=== PATIENT | female | born 1975 | race Caucasian/White ===

== ENCOUNTER 2020-01-14 14:15 | Inpatient (IN) | payer SELFPAY ==
[2020-01-14] VITALS (16 sets, daily range): BP systolic 122–220; BP diastolic 75–162; PULSE 64–84; RESP 16–25; TEMP 36.7–37.1; O2SAT 94–99; BMI 25.7
--- NOTE | 2020-01-14 15:12 | W.ED.CHESTPA ---
Documented by User: MERCEDES Bartlett 01/15/20 06:55 HPI - Chest Pain General: Chief Complaint: Recheck/Abnormal Lab/Rx Stated Complaint: med refill Time Seen by Provider: 01/14/20 14:58 Source: patient Mode of arrival: ambulatory Limitations: no limitations History of Present Illness: HPI narrative: Patient is a 44-year-old female who presents to ED today at the request of the [facility]. Patient tells me she went to the clinic for refills of her medications and during that visit she was complaining of chest pain and was noted to be extremely hypertensive therefore they sent patient to the emergency department for further evaluation. Patient tells me she has been having intermittent chest tightness over the past month with worsening symptoms over the past 3 to 4 days. She states pain seems to be worse with exertion as well as lifting. She tells me she will get short of breath with exertion as well. Patient has a history of CHF, HTN, and CKD. Her current medications include Lisinopril and Lasix. Patient states she is never had a heart attack previously. She has never had a stress test or echocardiogram. Patient has not been running fevers. She does not complain of a cough. She complains of worsening orthopnea. 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 MD complaint: chest pain and chest heaviness Timing of current episode: episodic Prior episodes: Yes Onset: during exertion Pain location: substernal Associated symptoms: Reports dyspnea; Deny abdominal pain, fever(s), nausea, palpitations, syncope or vomiting Review of Systems Const: Denies: fever(s), chills, body aches, fatigue or malaise Eyes: Denies: change in vision, blurry vision, photophobia, floaters or seeing flashes Card: Reports: chest pain, swelling of feet/ankles (chronic), dyspnea on exertion and orthopnea (chronic); Denies: palpitations, irregular heart rhythm, edema, lightheadedness, syncope, pre-syncope or leg pain with exertion Resp: Reports: dyspnea; Denies: productive cough, non-productive cough, pain on inspiration, change in phlegm color or chest congestion GI: Denies: abdominal pain, nausea, vomiting, heartburn or diarrhea : Denies: dysuria Musc: Denies: neck pain, back pain or joint pain Skin/Breast: Denies: rash Neuro: Denies: headache(s), numbness in extremities, weakness in extremities, sensory changes, lack of coordination, difficulty walking, frequent falls, dizziness, vertigo, confusion or seizure-like activity [facility] ED PFSH: Medical History Current smoker Surgical History (Updated 01/14/20 @ 17:34 by Andrae Menendez MD) No pertinent past surgical history Family History (Updated 01/14/20 @ 17:35 by Andrae Menendez MD) Mother CAD (coronary artery disease) Grandmother CAD (coronary artery disease) Social History (Updated 01/14/20 @ 17:35 by Andrae Menendez MD) Smoking and tobacco status: current every day smoker Alcohol intake: never Substance/Drug Use: never Female Reproductive History: Date of last menstrual period: 12/31/19 Physical Exam Const: COMMON NORMALS: no acute distress, average body habitus, patient oriented x3, no limitations, healthy appearing, alert and well nourished ORIENTATION/CONSCIOUSNESS: Yes oriented to person, Yes oriented to place and Yes oriented to time HENMT: COMMON NORMALS: normocephalic and atraumatic HEAD & SCALP: normocephalic and atraumatic Eye: COMMON NORMALS: Equal, round and reactive pupils present and EOMs intact bilaterally PUPIL: Yes Equal, round and reactive pupils present Chest: COMMONS NORMALS: normal inspection of the chest and normal palpation of entire chest wall Resp: COMMON NORMALS: normal respiratory effort and clear to auscultation bilaterally AUSCULTATION: clear to auscultation bilaterally Cardio: COMMON NORMALS: regular rate and regular rhythm RATE: regular rate RHYTHM: regular rhythm GI: COMMON NORMALS: Normal to inspection, nondistended, normoactive bowel sounds present, Soft to palpation, non-tender, No hepatosplenomegaly present and no masses PALPATION: Yes Soft to palpation and Yes No hepatosplenomegaly present Extremity: COMMON NORMALS: normal to inspection, full ROM, capillary refill normal, no clubbing, cyanosis or edema, no calf tenderness and no pedal edema GENERAL: Yes normal exam except as noted Neuro: OLIVA COMA SCALE: document GCS findings Oliva coma scale eye opening: Spontaneous [place] coma scale verbal response: Orientated [place] coma scale motor response: Obey commands [place] coma scale total score: 15 COMMON NORMALS: patient oriented x3 SENSORIUM/ORIENTATION: Yes alert, Yes oriented to person, Yes oriented to place and Yes oriented to time Skin: COMMON NORMALS: no rashes or lesions noted GENERAL SKIN EXAM: no rashes or lesions noted Course Vital Signs: Vital signs: Vital Signs Temperature 98.5 F 01/14/20 19:41 Pulse Rate 62 01/15/20 05:30 Respiratory Rate 20 H 01/15/20 05:30 Blood Pressure 125/74 01/15/20 05:30 Pulse Oximetry 95 01/15/20 05:30 MDM - Chest Pain MDM Narrative: Medical decision making narrative: Patient has a BNP of over 3200. She does complain of shortness of breath and orthopnea-worse than her baseline. She is complaining of intermittent chest tightness worse with exertion. She has uncontrolled hypertension. She has no outpatient follow-up. Patient has a HEART score of 4-5. Patient would benefit from coming inpatient. Spoke to Dr. Mcclure who agrees. She will assume care of patient and speak to hospitalist. Lab Data: Labs: Lab Results 01/14/20 01/14/20 01/14/20 Range/Units 02:50 02:50 15:47 WBC 7.7 (4.0-10.0) 10^3/ uL RBC 4.59 (4.1-5.3) 10^6/u L Hgb 13.4 (11.5-15.3) g/dL Hct 42.6 (37.0-47.0) % MCV 92.8 (81-99) fL MCH 29.2 (28.0-34.0) pg MCHC 31.5 (30.0-36.0) g/dL RDW 15.5 H (12.1-15.1) % Plt Count 165 (130-400) 10^3/c mm MPV 12.6 H (7.4-10.4) fL Neut % (Auto) 70.8 % Lymph % (Auto) 20.2 % Boyle % (Auto) 6.9 % Eos % (Auto) 1.3 % Baso % (Auto) 0.5 % Neut # (Auto) 5.47 (1.8-7.7) 10^3/u L Lymph # (Auto) 1.6 (0.8-4.8) 10^3/u L Boyle # (Auto) 0.5 (0.2-0.9) 10^3/u L Eos # (Auto) 0.1 (0.0-0.8) 10^3/u L Baso # (Auto) 0.0 (0.0-0.1) 10^3/u L Nucleated RBC % (a uto) 0 % Nucleated RBCs # 0.0 /100WBC Sodium (136-145) mmol/L Potassium (3.5-5.1) mmol/L Chloride (98-107) mmol/L Carbon Dioxide (22-29) mmol/L Anion Gap (5-19) BUN (6-20) mg/dL Creatinine (0.5-0.9) mg/dL GFR Calculation (90-130) mL/min Glucose (65-115) mg/dL Estimat Average Gl ucose Hemoglobin A1c (4.0-6.0) % Calculated Osmolal ity (285-295) mOsm/k g Calcium (8.5-10.5) mg/dL Total Bilirubin (0.15-1.2) mg/dL AST (0-32) U/L ALT (0-33) U/L Alkaline Phosphata se (35-105) IU/L Troponin T Baselin e (0-10) ng/L NT-Pro-B Natriuret Pep (0-125) pg/mL Total Protein (6.6-8.7) g/dL Albumin (3.5-5.2) g/dL Globulin (1.3-4.6) g/dL TSH (0.27-4.20) uIU/ mL HCG, Qual Negative (Negative) Urine Opiates Scre en Negative (Negative) ng/mL Ur Barbiturates Sc reen Negative (Negative) ng/mL Ur Phencyclidine S crn Negative (Negative) ng/mL Ur Amphetamines Sc reen Negative (Negative) ng/mL U Benzodiazepines Scrn Negative (Negative) ng/mL Urine Cocaine Scre en Negative (Negative) ng/mL U Marijuana (THC) Screen Negative (Negative) ng/mL 01/14/20 01/14/20 01/14/20 Range/Units 15:47 15:47 15:47 WBC (4.0-10.0) 10^3/ uL RBC (4.1-5.3) 10^6/u L Hgb (11.5-15.3) g/dL Hct (37.0-47.0) % MCV (81-99) fL MCH (28.0-34.0) pg MCHC (30.0-36.0) g/dL RDW (12.1-15.1) % Plt Count (130-400) 10^3/c mm MPV (7.4-10.4) fL Neut % (Auto) % Lymph % (Auto) % Boyle % (Auto) % Eos % (Auto) % Baso % (Auto) % Neut # (Auto) (1.8-7.7) 10^3/u L Lymph # (Auto) (0.8-4.8) 10^3/u L Boyle # (Auto) (0.2-0.9) 10^3/u L Eos # (Auto) (0.0-0.8) 10^3/u L Baso # (Auto) (0.0-0.1) 10^3/u L Nucleated RBC % (a uto) % Nucleated RBCs # /100WBC Sodium 139 (136-145) mmol/L Potassium 4.5 (3.5-5.1) mmol/L Chloride 107 (98-107) mmol/L Carbon Dioxide 23 (22-29) mmol/L Anion Gap 13.5 (5-19) BUN 26 H (6-20) mg/dL Creatinine 1.5 H (0.5-0.9) mg/dL GFR Calculation 37.4 L (90-130) mL/min Glucose 118 H (65-115) mg/dL Estimat Average Gl ucose 103 Hemoglobin A1c 5.2 (4.0-6.0) % Calculated Osmolal ity 286 (285-295) mOsm/k g Calcium 9.3 (8.5-10.5) mg/dL Total Bilirubin 0.2 (0.15-1.2) mg/dL AST 15 (0-32) U/L ALT 10 (0-33) U/L Alkaline Phosphata se 78 (35-105) IU/L Troponin T Baselin e 11 H (0-10) ng/L NT-Pro-B Natriuret Pep 3264 H (0-125) pg/mL Total Protein 7.5 (6.6-8.7) g/dL Albumin 4.1 (3.5-5.2) g/dL Globulin 3.4 (1.3-4.6) g/dL TSH (0.27-4.20) uIU/ mL HCG, Qual (Negative) Urine Opiates Scre en (Negative) ng/mL Ur Barbiturates Sc reen (Negative) ng/mL Ur Phencyclidine S crn (Negative) ng/mL Ur Amphetamines Sc reen (Negative) ng/mL U Benzodiazepines Scrn (Negative) ng/mL Urine Cocaine Scre en (Negative) ng/mL U Marijuana (THC) Screen (Negative) ng/mL 01/14/20 Range/Units 15:47 WBC (4.0-10.0) 10^3/ uL RBC (4.1-5.3) 10^6/u L Hgb (11.5-15.3) g/dL Hct (37.0-47.0) % MCV (81-99) fL MCH (28.0-34.0) pg MCHC (30.0-36.0) g/dL RDW (12.1-15.1) % Plt Count (130-400) 10^3/c mm MPV (7.4-10.4) fL Neut % (Auto) % Lymph % (Auto) % Boyle % (Auto) % Eos % (Auto) % Baso % (Auto) % Neut # (Auto) (1.8-7.7) 10^3/u L Lymph # (Auto) (0.8-4.8) 10^3/u L Boyle # (Auto) (0.2-0.9) 10^3/u L Eos # (Auto) (0.0-0.8) 10^3/u L Baso # (Auto) (0.0-0.1) 10^3/u L Nucleated RBC % (a uto) % Nucleated RBCs # /100WBC Sodium (136-145) mmol/L Potassium (3.5-5.1) mmol/L Chloride (98-107) mmol/L Carbon Dioxide (22-29) mmol/L Anion Gap (5-19) BUN (6-20) mg/dL Creatinine (0.5-0.9) mg/dL GFR Calculation (90-130) mL/min Glucose (65-115) mg/dL Estimat Average Gl ucose Hemoglobin A1c (4.0-6.0) % Calculated Osmolal ity (285-295) mOsm/k g Calcium (8.5-10.5) mg/dL Total Bilirubin (0.15-1.2) mg/dL AST (0-32) U/L ALT (0-33) U/L Alkaline Phosphata se (35-105) IU/L Troponin T Baselin e (0-10) ng/L NT-Pro-B Natriuret Pep (0-125) pg/mL Total Protein (6.6-8.7) g/dL Albumin (3.5-5.2) g/dL Globulin (1.3-4.6) g/dL TSH 1.12 (0.27-4.20) uIU/ mL HCG, Qual (Negative) Urine Opiates Scre en (Negative) ng/mL Ur Barbiturates Sc reen (Negative) ng/mL Ur Phencyclidine S crn (Negative) ng/mL Ur Amphetamines Sc reen (Negative) ng/mL U Benzodiazepines Scrn (Negative) ng/mL Urine Cocaine Scre en (Negative) ng/mL U Marijuana (THC) Screen (Negative) ng/mL Imaging Data^: CXR: Radiologist's impression: [address] [address] XRay Report Signed Patient: Imelda Cabezas Unit #: [id number] : 1975 Age/Sex: 44 / F ADM Date: 01/14/20 Loc: ER Room/Bed: Attending Dr: Ordering Provider/Ordering MD: Ana Luisa Woods Date of Service: 01/14/20 Procedure(s): XR chest 1V portable 22435 Accession Number(s): [id number] Report Number: [id number] PROCEDURE INFORMATION: Exam: XR Chest, 1 View Exam date and time: 01/14/2020 3:16 PM Age: 44 years old Clinical indication: Pain; Shortness of breath; Chest pressure; Additional info: Chest pain TECHNIQUE: Imaging protocol: XR of the chest Views: 1 view. COMPARISON: No relevant prior studies available. FINDINGS: Lungs: Unremarkable. No consolidation. Pleural space: Unremarkable. No pleural effusion. No pneumothorax. Heart/Mediastinum: Unremarkable. No cardiomegaly. Bones/joints: Unremarkable. XR/XR chest 1V portable [id number] IMPRESSION: No acute findings. Dictated By: Austyn Newsome MD Signed By: Austyn Newsome MD Signed Date/Time: 01/14/201533 DD/ 32 Discharge Plan Discharge Patient Disposition: Admitted As Inpatient Admit Provider: Andrae Menendez Clinical Impression: Uncontrolled hypertension Congestive heart failure Qualifiers: Heart failure type: unspecified Heart failure chronicity: unspecified Qualified Code(s): I50.9 - Heart failure, unspecified Chronic kidney disease Qualifiers: Chronic kidney disease stage: unspecified stage Qualified Code(s): N18.9 - Chronic kidney disease, unspecified Condition: Stable Discharge Date/Time: 01/14/20 19:21 Coding Level of Care Code ED General Internal Medicine Physician for Chg Fwd Exam Comprehensive Documented by User: Cristine Mcclure MD 01/14/20 17:46 HPI - Chest Pain General: Chief Complaint: Recheck/Abnormal Lab/Rx Stated Complaint: med refill Time Seen by Provider: 01/14/20 14:58 PFSH ED PFSH: Medical History Current smoker Surgical History (Updated 01/14/20 @ 17:34 by Andrae Menendez MD) No pertinent past surgical history Family History (Updated 01/14/20 @ 17:35 by Andrae Menendez MD) Mother CAD (coronary artery disease) Grandmother CAD (coronary artery disease) Social History (Updated 01/14/20 @ 17:35 by Andrae Menendez MD) Smoking and tobacco status: current every day smoker Alcohol intake: never Substance/Drug Use: never Course ED course: I saw this patient with MERCEDES Bartlett. The patient presents from primary care with a referral for chest pain and hypertension. She has had blood pressure problems for a long time and had been off her blood pressure medicines until recently. She is been having increasing chest pain over the past month and it is at times exertional. She has an abnormal EKG consistent with longstanding hypertension. She has evidence of CHF on her blood work. She will be admitted for further evaluation. She is pain-free in the department. On my exam her physical findings are minimal. She was given her normal lisinopril as well as Nitropaste. She was also quite anxious and I gave her a half a milligram of Ativan to help her relax. She will be admitted to the hospitalist and they have requested ICU care. Vital Signs: Vital signs: Vital Signs Temperature 98.5 F 01/14/20 19:41 Pulse Rate 62 01/15/20 05:30 Respiratory Rate 20 H 01/15/20 05:30 Blood Pressure 125/74 01/15/20 05:30 Pulse Oximetry 95 01/15/20 05:30 MDM - Chest Pain Lab Data: Labs: Lab Results 01/14/20 01/14/20 01/14/20 Range/Units 02:50 02:50 15:47 WBC 7.7 (4.0-10.0) 10^3/ uL RBC 4.59 (4.1-5.3) 10^6/u L Hgb 13.4 (11.5-15.3) g/dL Hct 42.6 (37.0-47.0) % MCV 92.8 (81-99) fL MCH 29.2 (28.0-34.0) pg MCHC 31.5 (30.0-36.0) g/dL RDW 15.5 H (12.1-15.1) % Plt Count 165 (130-400) 10^3/c mm MPV 12.6 H (7.4-10.4) fL Neut % (Auto) 70.8 % Lymph % (Auto) 20.2 % Boyle % (Auto) 6.9 % Eos % (Auto) 1.3 % Baso % (Auto) 0.5 % Neut # (Auto) 5.47 (1.8-7.7) 10^3/u L Lymph # (Auto) 1.6 (0.8-4.8) 10^3/u L Boyle # (Auto) 0.5 (0.2-0.9) 10^3/u L Eos # (Auto) 0.1 (0.0-0.8) 10^3/u L Baso # (Auto) 0.0 (0.0-0.1) 10^3/u L Nucleated RBC % (a uto) 0 % Nucleated RBCs # 0.0 /100WBC Sodium (136-145) mmol/L Potassium (3.5-5.1) mmol/L Chloride (98-107) mmol/L Carbon Dioxide (22-29) mmol/L Anion Gap (5-19) BUN (6-20) mg/dL Creatinine (0.5-0.9) mg/dL GFR Calculation (90-130) mL/min Glucose (65-115) mg/dL Estimat Average Gl ucose Hemoglobin A1c (4.0-6.0) % Calculated Osmolal ity (285-295) mOsm/k g Calcium (8.5-10.5) mg/dL Total Bilirubin (0.15-1.2) mg/dL AST (0-32) U/L ALT (0-33) U/L Alkaline Phosphata se (35-105) IU/L Troponin T Baselin e (0-10) ng/L NT-Pro-B Natriuret Pep (0-125) pg/mL Total Protein (6.6-8.7) g/dL Albumin (3.5-5.2) g/dL Globulin (1.3-4.6) g/dL TSH (0.27-4.20) uIU/ mL HCG, Qual Negative (Negative) Urine Opiates Scre en Negative (Negative) ng/mL Ur Barbiturates Sc reen Negative (Negative) ng/mL Ur Phencyclidine S crn Negative (Negative) ng/mL Ur Amphetamines Sc reen Negative (Negative) ng/mL U Benzodiazepines Scrn Negative (Negative) ng/mL Urine Cocaine Scre en Negative (Negative) ng/mL U Marijuana (THC) Screen Negative (Negative) ng/mL 01/14/20 01/14/20 01/14/20 Range/Units 15:47 15:47 15:47 WBC (4.0-10.0) 10^3/ uL RBC (4.1-5.3) 10^6/u L Hgb (11.5-15.3) g/dL Hct (37.0-47.0) % MCV (81-99) fL MCH (28.0-34.0) pg MCHC (30.0-36.0) g/dL RDW (12.1-15.1) % Plt Count (130-400) 10^3/c mm MPV (7.4-10.4) fL Neut % (Auto) % Lymph % (Auto) % Boyle % (Auto) % Eos % (Auto) % Baso % (Auto) % Neut # (Auto) (1.8-7.7) 10^3/u L Lymph # (Auto) (0.8-4.8) 10^3/u L Boyle # (Auto) (0.2-0.9) 10^3/u L Eos # (Auto) (0.0-0.8) 10^3/u L Baso # (Auto) (0.0-0.1) 10^3/u L Nucleated RBC % (a uto) % Nucleated RBCs # /100WBC Sodium 139 (136-145) mmol/L Potassium 4.5 (3.5-5.1) mmol/L Chloride 107 (98-107) mmol/L Carbon Dioxide 23 (22-29) mmol/L Anion Gap 13.5 (5-19) BUN 26 H (6-20) mg/dL Creatinine 1.5 H (0.5-0.9) mg/dL GFR Calculation 37.4 L (90-130) mL/min Glucose 118 H (65-115) mg/dL Estimat Average Gl ucose 103 Hemoglobin A1c 5.2 (4.0-6.0) % Calculated Osmolal ity 286 (285-295) mOsm/k g Calcium 9.3 (8.5-10.5) mg/dL Total Bilirubin 0.2 (0.15-1.2) mg/dL AST 15 (0-32) U/L ALT 10 (0-33) U/L Alkaline Phosphata se 78 (35-105) IU/L Troponin T Baselin e 11 H (0-10) ng/L NT-Pro-B Natriuret Pep 3264 H (0-125) pg/mL Total Protein 7.5 (6.6-8.7) g/dL Albumin 4.1 (3.5-5.2) g/dL Globulin 3.4 (1.3-4.6) g/dL TSH (0.27-4.20) uIU/ mL HCG, Qual (Negative) Urine Opiates Scre en (Negative) ng/mL Ur Barbiturates Sc reen (Negative) ng/mL Ur Phencyclidine S crn (Negative) ng/mL Ur Amphetamines Sc reen (Negative) ng/mL U Benzodiazepines Scrn (Negative) ng/mL Urine Cocaine Scre en (Negative) ng/mL U Marijuana (THC) Screen (Negative) ng/mL 01/14/20 Range/Units 15:47 WBC (4.0-10.0) 10^3/ uL RBC (4.1-5.3) 10^6/u L Hgb (11.5-15.3) g/dL Hct (37.0-47.0) % MCV (81-99) fL MCH (28.0-34.0) pg MCHC (30.0-36.0) g/dL RDW (12.1-15.1) % Plt Count (130-400) 10^3/c mm MPV (7.4-10.4) fL Neut % (Auto) % Lymph % (Auto) % Boyle % (Auto) % Eos % (Auto) % Baso % (Auto) % Neut # (Auto) (1.8-7.7) 10^3/u L Lymph # (Auto) (0.8-4.8) 10^3/u L Boyle # (Auto) (0.2-0.9) 10^3/u L Eos # (Auto) (0.0-0.8) 10^3/u L Baso # (Auto) (0.0-0.1) 10^3/u L Nucleated RBC % (a uto) % Nucleated RBCs # /100WBC Sodium (136-145) mmol/L Potassium (3.5-5.1) mmol/L Chloride (98-107) mmol/L Carbon Dioxide (22-29) mmol/L Anion Gap (5-19) BUN (6-20) mg/dL Creatinine (0.5-0.9) mg/dL GFR Calculation (90-130) mL/min Glucose (65-115) mg/dL Estimat Average Gl ucose Hemoglobin A1c (4.0-6.0) % Calculated Osmolal ity (285-295) mOsm/k g Calcium (8.5-10.5) mg/dL Total Bilirubin (0.15-1.2) mg/dL AST (0-32) U/L ALT (0-33) U/L Alkaline Phosphata se (35-105) IU/L Troponin T Baselin e (0-10) ng/L NT-Pro-B Natriuret Pep (0-125) pg/mL Total Protein (6.6-8.7) g/dL Albumin (3.5-5.2) g/dL Globulin (1.3-4.6) g/dL TSH 1.12 (0.27-4.20) uIU/ mL HCG, Qual (Negative) Urine Opiates Scre en (Negative) ng/mL Ur Barbiturates Sc reen (Negative) ng/mL Ur Phencyclidine S crn (Negative) ng/mL Ur Amphetamines Sc reen (Negative) ng/mL U Benzodiazepines Scrn (Negative) ng/mL Urine Cocaine Scre en (Negative) ng/mL U Marijuana (THC) Screen (Negative) ng/mL Discharge Plan Discharge Patient Disposition: Admitted As Inpatient Admit Provider: Andrae Menendez Clinical Impression: Uncontrolled hypertension Congestive heart failure Qualifiers: Heart failure type: unspecified Heart failure chronicity: unspecified Qualified Code(s): I50.9 - Heart failure, unspecified Chronic kidney disease Qualifiers: Chronic kidney disease stage: unspecified stage Qualified Code(s): N18.9 - Chronic kidney disease, unspecified Condition: Stable Discharge Date/Time: 01/14/20 19:21 Coding Level of Care Code ED General Internal Medicine Physician for g Fwd Exam Comprehensive
--- NOTE | 2020-01-14 15:13 | ECG_ITS ---
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 Measurements Intervals [place] Rate: 57 P: 49 GA: 164 QRS: 65 QRSD: 91 T: 197 QT: 428 QTc: 417 Interpretive Statements SINUS BRADYCARDIA LEFT VENTRICULAR HYPERTROPHY AND ST-T CHANGE [VOLTAGE CRITERIA PLUS ST/T ABNORMALITY] No previous ECG available for comparison Electronically Signed On 01-14-2020 17:28:30 CDT by David Gage M.D. [id number]
[2020-01-14] MEDS: lisinopril 10 mg Tablet 20 MG PO (15:36)
[2020-01-14 15:54] LABS: Basophils % 0.5 %; Eosinophils # 0.1 10^3/uL (0.0-0.8); Eosinophils % 1.3 %; Hematocrit 42.6 % (37.0-47.0); Hemoglobin 13.4 g/dL (11.5-15.3); Lymphocytes # 1.6 10^3/uL (0.8-4.8); Lymphocytes % 20.2 %; Mean Corpuscular HGB Conc 31.5 g/dL (30.0-36.0); Mean Corpuscular Hemoglobin 29.2 pg (28.0-34.0); Mean Corpuscular Volume 92.8 fL (81-99); Mean Platelet Volume 12.6 fL (7.4-10.4); Monocytes # 0.5 10^3/uL (0.2-0.9); Monocytes % 6.9 %; Neutrophils # 5.47 10^3/uL (1.8-7.7); Neutrophils % 70.8 %; Nucleated Red Blood Cells % 0 %; Platelet Count 165 10^3/cmm (130-400); Red Blood Count 4.59 10^6/uL (4.1-5.3); Red Cell Distribution Width 15.5 % (12.1-15.1); White Blood Count 7.7 10^3/uL (4.0-10.0)
[2020-01-14 16:14] LABS: Troponin(5th) Baseline 11 ng/L (0-10)
[2020-01-14 16:23] LABS: Alanine Aminotransferase 10 U/L (0-33); Albumin Level 4.1 g/dL (3.5-5.2); Alkaline Phosphatase 78 IU/L (35-105); Anion Gap 13.5 (5-19); Aspartate Amino Transferase 15 U/L (0-32); Blood Urea Nitrogen 26 mg/dL (6-20); Calcium 9.3 mg/dL (8.5-10.5); Carbon Dioxide 23 mmol/L (22-29); Chloride 107 mmol/L (98-107); Creatinine Clr Calc Pharmacy 44.4152; Globulin 3.4 g/dL (1.3-4.6); Glomerular Filtration Rate 37.4 mL/min (90-130); Glucose 118 mg/dL (65-115); NT Pro B Type Natriuretic Pept 3264 pg/mL (0-125); Osmolality Calculated 286 mOsm/kg (285-295); Potassium 4.5 mmol/L (3.5-5.1); Sodium 139 mmol/L (136-145); Total Bilirubin 0.2 mg/dL (0.15-1.2); Total Protein 7.5 g/dL (6.6-8.7)
[2020-01-14] MEDS: nitroglycerin 0.4 mg sublingual Tablet SUBLINGUAL (16:45)
--- NOTE | 2020-01-14 17:13 | ECG_ITS ---
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 Measurements Intervals [place] Rate: 55 P: 51 ID: [id number] QRS: 52 QRSD: 89 T: 188 QT: 422 QTc: 405 Interpretive Statements SINUS BRADYCARDIA LEFT VENTRICULAR HYPERTROPHY AND ST-T CHANGE [VOLTAGE CRITERIA PLUS ST/T ABNORMALITY] Compared to ECG 01/14/2020 15:41:57 No significant changes Electronically Signed On 01-15-2020 13:06:15 CDT by Cindi Velázquez M.D. [id number]
[2020-01-14] MEDS: nitroglycerin 1 gm/inch oint Pkt 1 INCH TOPICAL (17:18)
[2020-01-14] MEDS: LORazepam 2 mg/mL INJ 1 mL 0.5 MG IVP (17:18)
--- NOTE | 2020-01-14 17:23 | ECG_ITS ---
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 Interpretive Statements NAME OF STUDY: LEXISCAN SESTAMIBI STRESS TEST INDICATION: Chest Pain PROCEDURE: At the baseline, the blood pressure was 148/83 mmHg with a heart rate of 57 bpm. The electrocardiogram showed Sinus bradycardia, normal axis.Left ventricular hypertrophy with secondary ST-T wave changes The Lexiscan was infused over a period of 20 seconds. A total of 0.4 milligrams of Lexiscan was infused. The stress phase was continued for a total of 5 minutes. Heart rate at the end of the stress phase was 79 bpm with a blood pressure 159/81 mm Hg. The EKG at the peak infusion revealed sinus rhythm, LVH with secondary ST-T wave changes. Sestamibi was injected 20 seconds after the Lexiscan infusion. Blood pressure at the end of the recovery phase was 152/83 mm Hg with a heart rate of 79 beats per minute. CONCLUSION: 1. Non diagnostic EKG with the LexiScan infusion given baseline ST-T wave changes. 2. No LexiScan induced chest pain or cardiac arrhythmia. 3. Normal blood pressure and heart rate response. 4. Sestamibi/sestamibi perfusion scan pending; see separate report. Electronically Signed On 01-15-2020 13:04:21 CDT by Cindi Velázquez M.D. [id number]
--- NOTE | 2020-01-14 17:23 | CTR_ITS ---
PROCEDURE INFORMATION: Exam: CT Head Without Contrast Exam date and time: 01/14/2020 5:44 PM Age: 44 years old Clinical indication: Other: HTN; Additional info: HTN urgency TECHNIQUE: Imaging protocol: Computed tomography of the head without contrast. Radiation optimization: All CT scans at this facility use at least one of these dose optimization techniques: automated exposure control; mA and/or kV adjustment per patient size (includes targeted exams where dose is matched to clinical indication); or iterative reconstruction. COMPARISON: No relevant prior studies available. RADIATION DOSE METRICS: Total DLP (mGy-cm): 858.53 FINDINGS: Brain: No acute intracranial mass or bleed. Small 4 mm chronic appearing low-density left thalamic lacunar infarction. 7-8 mm low-density chronic appearing left centrum semiovale region lacunar infarction. Ventricles: Normal. No ventriculomegaly. Bones/joints: Unremarkable. No acute fracture. Sinuses: Visualized sinuses are unremarkable. No fluid levels. Mastoid air cells: Visualized mastoid air cells are well aerated. Soft tissues: Unremarkable. CT/CT head wo con* [id number] IMPRESSION: No acute findings. Small chronic appearing left thalamic and left centrum semiovale region lacunar infarctions. Radiation Dose CTDIVOL = (mGy): DLP = 858.53 (mGy-cm)
--- NOTE | 2020-01-14 17:27 | PM.HP ---
Providers/Chief Complaint Chief Complaint: med refill and high bp History of Present Illness Imelda Cabezas is a 44 year old female history of noncompliance, hypertension, CHF, hypertensive nephropathy who presents to [facility] from [facility] for complaints of chest pain, shortness of breath, elevated blood pressure. Patient is originally from [place], 4 years ago she was diagnosed with hypertension, at one point she was on 3 antihypertensive medications, but due to loss of insurance, she was not able to follow-up, has been on and off medications for some time. She tells me that when she was out in [place] she had a couple ER visits for hypertensive episodes. She tells me that within the last few months she was admitted at [facility], for CHF exacerbation, was given a few refills of lisinopril and Lasix. She is out of the Lasix. But continues the lisinopril that she has 3 refills. Patient states that what [facility], is is that she has been having substernal chest pain, chest pain is described as a tightness across her anterior chest, no radiation, associate with exertion, associate with shortness of breath, has orthopnea, no paroxysmal nocturnal dyspnea, has no lightheadedness, no dizziness, no nausea, no vomiting. She also describes shortness of breath with minimal exertion, she states that with even folding the laundry she will get short of breath. He also describes bilateral lower extremity edema. Denies any headaches, blurry vision, strokelike symptoms, no paresthesias, no slurring of his speech, no facial droop, no paralysis, no history of TIAs. She has not seen a physician in a few months, no history of strokes, no history of intracranial bleed, no history of CAD no, no history of stress testing. In the emergency room, patient was found to have hypertensive emergency with chest pain, her blood pressures were in the 190s over 160s, she is been given Nitropaste and Ativan, her BNP is over 3000, EKG shows T wave inversions in the lateral leads, creatinine 1.5, baseline troponin 11. Will admit to the intensive care unit for hypertensive emergency. Review of Systems Const: Denies: fever(s), chills, fatigue or malaise Eyes: Denies: change in vision or blurry vision ENMT: Denies: nasal congestion Card: Reports: chest pain, palpitations and edema; Denies: syncope or pre-syncope Resp: Denies: dyspnea, productive cough, non-productive cough or wheezing GI: Denies: abdominal pain, nausea, vomiting, hematemesis, diarrhea, constipation, hematochezia or melena : Denies: flank pain, dysuria or urinary frequency Musc: Denies: neck pain or back pain Skin/Breast: Denies: rash Neuro: Denies: headache(s), dizziness or vertigo Psych: Denies: anxiety or depression Endo: Denies: polyuria or polydipsia Medications/Allergies Home Medications Medication Instructions Recorded Confirmed Last Taken Type lisinopril 20 mg PO DAILY 01/14/20 01/14/20 Unknown History Allergies Allergy/AdvReac Type Severity Reaction Status Date / Time No Known Allergies Allergy Verified 01/14/20 15:35 PFSH Acute PFSH: Medical History Current smoker Surgical History (Updated 01/14/20 @ 17:34 by Andrae Menendez MD) No pertinent past surgical history Family History (Updated 01/14/20 @ 17:35 by Andrae Menendez MD) Mother CAD (coronary artery disease) Grandmother CAD (coronary artery disease) Social History (Updated 01/14/20 @ 17:35 by Andrae Menendez MD) Smoking and tobacco status: current every day smoker Alcohol intake: never Substance/Drug Use: never Female Reproductive History: Date of last menstrual period: 12/31/19 Vitals/I&O/Wt Last Vital Signs Temp 98.1 F 01/14/20 14:47 Pulse 64 01/14/20 17:13 Resp 16 01/14/20 17:13 BP 194/162 01/14/20 17:13 Pulse Ox 97 01/14/20 17:13 Weight last 48 hrs Weight 68.039 kg Physical Exam Const: COMMON NORMALS: no acute distress and patient oriented x3 GENERAL APPEARANCE: cooperative and comfortable HENMT: COMMON NORMALS: normocephalic HEAD & SCALP: normocephalic Eye: COMMON NORMALS: Equal, round and reactive pupils present and EOMs intact bilaterally GENERAL EYE: appearance normal, both eyes and all related structures PUPIL: Yes Equal, round and reactive pupils present Neck/C-Spine: COMMON NORMALS: full ROM, no lymphadenopathy, no JVD and Thyroid normal THYROID: Thyroid normal Lymph: LYMPHATIC: no lymphadenopathy noted Resp: COMMON NORMALS: normal respiratory effort, No retractions, No use of accessory muscles and clear to auscultation bilaterally AUSCULTATION: clear to auscultation bilaterally Cardio: COMMON NORMALS: no JVD, regular rate, regular rhythm, S1 normal heart sound present, S2 normal heart sound present, No gallops present (Cardio), No clicks present (Cardio) and No murmurs present (Cardio) RATE: regular rate RHYTHM: regular rhythm HEART SOUNDS: S1 normal heart sound present and S2 normal heart sound present GI: COMMON NORMALS: Normal to inspection, nondistended, normoactive bowel sounds present, Soft to palpation, non-tender and No hepatosplenomegaly present PALPATION: Yes Soft to palpation and Yes No hepatosplenomegaly present Extremity: COMMON NORMALS: normal to inspection, full ROM and no pedal edema Neuro: COMMON NORMALS: patient oriented x3, CN's II-XII intact bilaterally, moves all extremities and no focal motor deficits Psych: COMMON NORMALS: mental status grossly normal, Normal thought process present and cooperative THOUGHT PROCESS: Normal thought process present Data : 01/14/20 15:47 01/14/20 15:47 A&P Assessment and plan (1) Hypertensive emergency: -Evidence of end organ damage, creatinine 1.5, EKG with T wave inversions in the lateral leads, complaints of chest pain, shortness of breath -Has a history of CHF, JVD 10 cm, no peripheral edema, no crackles on exam, BNP 3000 -No strokelike symptoms, no chest pain rating to the back, no concerns for aortic dissection Plan: -Admit to the intensive care unit -Recommend gradual reduction of blood pressure, target blood pressure of less than 180/120 for the first hour, and less than 160/110 for the next 23 hours -We will use a Cardene drip to titrate -We will overlap with oral medication when prudent -Order CT of the head to rule out intracranial bleed -Evaluate with cardiac echocardiogram -Continue telemetry monitoring, serial EKGs, serial troponins, monitor for chest pain -Aspirin 81 mg, atorvastatin 40 mg, Coreg 3.125 twice daily, urine drug screen, TSH, mag -We will order cardiac stress test tomorrow morning -Full code -Lovenox for DVT prophylaxis Status: Acute (2) Congestive heart failure: -Ischemic versus nonischemic, will evaluate with echocardiogram, stress testing Status: Acute Qualifiers: Heart failure type: unspecified (3) Uncontrolled hypertension: Status: Acute (4) Chronic kidney disease: Status: Acute Qualifiers: Chronic kidney disease stage: unspecified stage Qualified Code(s): N18.9 - Chronic kidney disease, unspecified (5) Chest pain: -Sounds cardiac in nature, will order cardiac stress testing tomorrow, aspirin, statin, Coreg, nitro paste, telemetry monitoring, monitor for chest pain, does have a significant history of CAD Status: Acute Attestations Medical Necessity Statement*: Patient requires inpatient admission, ICU, for hypertensive emergency, CHF exacerbation, chest pain Coding Level of Care Code Acute 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
[2020-01-14 18:04] LABS: Troponin 5 2HR 10.64 ng/L (0-10)
[2020-01-14 18:06] LABS: Troponin 5 2HR Delta -0.36 ABS# (0-10)
[2020-01-14] MEDS: carvedilol 3.125 mg Tablet PO (19:52)
[2020-01-14] MEDS: enoxaparin 40 mg/0.4 mL Syringe SUBCUT (19:52)
[2020-01-14] MEDS: atorvastatin 40 mg Tablet PO (19:52)
[2020-01-14] MEDS: aspirin 81 mg EC Tablet PO (19:52)
[2020-01-14] MEDS: nicardipine 20 MG/200 ML PREMIX 50 MG IV (20:17)
[2020-01-14 20:52] LABS: Estmated Average Glucose 103; Hemoglobin A1C 5.2 % (4.0-6.0)
--- NOTE | 2020-01-14 21:13 | ECG_ITS ---
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 Measurements Intervals [place] Rate: 65 P: 54 LA: 169 QRS: 63 QRSD: 97 T: 226 QT: 412 QTc: 431 Interpretive Statements SINUS RHYTHM LEFT VENTRICULAR HYPERTROPHY AND ST-T CHANGE [VOLTAGE CRITERIA PLUS ST/T ABNORMALITY] WARNING: DATA QUALITY MAY AFFECT INTERPRETATION Compared to ECG 01/14/2020 19:00:12 Sinus bradycardia no longer present ST (T wave) deviation still present Electronically Signed On 01-15-2020 13:05:59 CDT by Cindi Velázquez M.D. [id number]
[2020-01-14 21:16] LABS: Thyroid Stimulating Hormone 1.12 uIU/mL (0.27-4.20)
[2020-01-14 22:51] LABS: Troponin 5 6HR 11.66 ng/L (0-10); Troponin 5 6HR Delta 0.66 ng/L (0-12)
[2020-01-15] VITALS (37 sets, daily range): BP systolic 118–229; BP diastolic 58–169; PULSE 48–84; RESP 13–25; TEMP 36.7; O2SAT 95–99
[2020-01-15 03:30] LABS: Amphetamines Screen Urine Negative (Negative); Barbiturates Screen Urine Negative (Negative); Benzodiazepines Screen Urine Negative (Negative); Cocaine Screen Urine Negative (Negative); Opiate Screen Urine Negative (Negative); PCP Screen Urine Negative (Negative); THC Screen Urine Negative (Negative)
[2020-01-15 04:34] LABS: Basophils % 0.3 %; Eosinophils # 0.2 10^3/uL (0.0-0.8); Eosinophils % 2.2 %; Hematocrit 41.1 % (37.0-47.0); Hemoglobin 12.5 g/dL (11.5-15.3); Lymphocytes # 2.3 10^3/uL (0.8-4.8); Lymphocytes % 26.4 %; Mean Corpuscular HGB Conc 30.4 g/dL (30.0-36.0); Mean Corpuscular Hemoglobin 28.7 pg (28.0-34.0); Mean Corpuscular Volume 94.3 fL (81-99); Mean Platelet Volume 13.2 fL (7.4-10.4); Monocytes # 0.6 10^3/uL (0.2-0.9); Monocytes % 7.2 %; Neutrophils # 5.46 10^3/uL (1.8-7.7); Neutrophils % 63.6 %; Nucleated Red Blood Cells % 0 %; Platelet Count 158 10^3/cmm (130-400); Red Blood Count 4.36 10^6/uL (4.1-5.3); Red Cell Distribution Width 15.8 % (12.1-15.1); White Blood Count 8.6 10^3/uL (4.0-10.0)
[2020-01-15 04:55] LABS: Cholesterol 212 mg/dL (0-200); HDL Cholesterol 40 mg/dL (60-100); LDL Cholesterol Calculated 155 mg/dL (50-129); LDL HDL Ratio 3.88 RATIO (0.00-3.22); Triglycerides 83 mg/dL (0-150)
[2020-01-15 05:08] LABS: Alanine Aminotransferase 8 U/L (0-33); Albumin Level 3.7 g/dL (3.5-5.2); Alkaline Phosphatase 62 IU/L (35-105); Anion Gap 15.5 (5-19); Aspartate Amino Transferase 12 U/L (0-32); Blood Urea Nitrogen 29 mg/dL (6-20); Calcium 8.7 mg/dL (8.5-10.5); Carbon Dioxide 18 mmol/L (22-29); Chloride 106 mmol/L (98-107); Globulin 3.7 g/dL (1.3-4.6); Glomerular Filtration Rate 40.5 mL/min (90-130); Glucose 94 mg/dL (65-115); Magnesium 2.1 mg/dL (1.7-2.3); Osmolality Calculated 277 mOsm/kg (285-295); Phosphorus 4.8 mg/dL (2.5-4.5); Potassium 4.5 mmol/L (3.5-5.1); Sodium 135 mmol/L (136-145); Total Bilirubin 0.2 mg/dL (0.15-1.2); Total Protein 7.4 g/dL (6.6-8.7)
[2020-01-15 05:36] LABS: Slide Review Slide Review Perform
--- NOTE | 2020-01-15 06:14 | PC.NURSE ---
STRESS TEST NOTE THE PATIENT HAS NOT HAD A TUBAL OR A HYSTERECTOMY. WILL OBTAIN HCG TEST PRIOR TO INJECTING. FREDY IN ICU WAS NOTIFIED. WILL ADD HCG TO THE BLOOD IN THE LAB FROM THIS AM'S LABWORK.
[2020-01-15 06:21] LABS: HCG Qualitative Urine. Negative (Negative)
--- NOTE | 2020-01-15 06:24 | PC.NURSE ---
STRESS TEST NOTE THE PATIENT'S HGC TEST WAS NEGATIVE. BABAR CUBA [employer] TECH WAS NOTIFIED AND THE PATIENT WILL BE INJECTED FOR THE REST DOSE.
--- NOTE | 2020-01-15 07:33 | PC.NURSE ---
to nuc. med after voiding.
[2020-01-15] MEDS: regadenoson 0.4 Mg/5 ml Syringe IVP (07:55)
[2020-01-15] MEDS: chlorthalidone 25 mg Tablet PO ×2 (09:29→10:37)
[2020-01-15] MEDS: atorvastatin 40 mg Tablet PO (09:29)
[2020-01-15] MEDS: lisinopril 20 mg Tablet PO ×2 (09:29→18:04)
[2020-01-15] MEDS: aspirin 81 mg EC Tablet PO (09:30)
[2020-01-15] MEDS: carvedilol 3.125 mg Tablet PO ×2 (09:30→18:05)
[2020-01-15] MEDS: acetaminophen 325 mg Tablet 650 MG PO (09:56)
--- NOTE | 2020-01-15 12:18 | P.PN_ITS ---
Subjective Subjective: Interval history: This morning patient was examined in the cardiac stress lab, no acute events overnight, her blood pressure was slowly dropped, last blood pressure was 150s over 90s, no chest pain, no shortness of breath, no lightheadedness, no dizziness, she does state that she is anxious Vitals/I&O/Wt Last Vital Signs Temp 98.5 F 01/14/20 19:41 Pulse 80 01/15/20 08:16 Resp 20 H 01/15/20 05:30 BP 159/81 01/15/20 08:16 Pulse Ox 95 01/15/20 05:30 01/14/20 01/15/20 01/15/20 22:59 06:59 14:59 Intake Total 60.833 / 60.833 45 / 105.833 Output Total 400 / 400 Balance 60.833 / 60.833 -355 / -294.167 Weight last 48 hrs Weight 68.039 kg Physical Exam Const: COMMON NORMALS: no acute distress and patient oriented x3 HENMT: COMMON NORMALS: normocephalic HEAD & SCALP: normocephalic Neck/C-Spine: COMMON NORMALS: no JVD Resp: COMMON NORMALS: normal respiratory effort, No retractions, No use of accessory muscles and clear to auscultation bilaterally AUSCULTATION: clear to auscultation bilaterally Cardio: COMMON NORMALS: no JVD, regular rate, regular rhythm, S1 normal heart sound present and S2 normal heart sound present RATE: regular rate RHYTHM: regular rhythm HEART SOUNDS: S1 normal heart sound present and S2 normal heart sound present GI: COMMON NORMALS: Normal to inspection, nondistended, normoactive bowel sounds present, Soft to palpation, non-tender, No hepatosplenomegaly present, no masses and no bruits PALPATION: Yes Soft to palpation and Yes No hepatosplenomegaly present Extremity: COMMON NORMALS: capillary refill normal, no clubbing, cyanosis or edema, no calf tenderness and no pedal edema Neuro: COMMON NORMALS: patient oriented x3 Psych: COMMON NORMALS: mental status grossly normal Data : 01/15/20 04:03 01/15/20 04:03 A&P Assessment and plan (1) Hypertensive emergency: -Evidence of end organ damage, creatinine 1.5, EKG with T wave inversions in anterior chest leads, complaints of chest pain, shortness of breath -Has a history of CHF, JVD 10 cm, no peripheral edema, no crackles on exam, BNP 3000 -No strokelike symptoms, but CT does show evidence of Small chronic appearing left thalamic and left centrum semiovale region lacunar infarctions -no chest pain rating to the back, no concerns for aortic dissection Plan: -Move the patient to cardiac stepdown unit -Recommend gradual reduction of blood pressure, target blood pressure of less than 180/120 for the first hour, and less than 160/110 for the next 23 hours -Currently on lisinopril 20 twice daily, chlorthalidone 25 mg daily, Norvasc 10 mg daily, Coreg 3.25 twice daily -Off Cardene drip -Waiting on cardiac stress test results -Evaluate with cardiac echocardiogram -Continue telemetry monitoring, monitor for chest pain -Aspirin 81 mg, atorvastatin 40 mg, Coreg 3.125 twice daily -Full code -Lovenox for DVT prophylaxis Status: Acute (2) Congestive heart failure: -Ischemic versus nonischemic, will evaluate with echocardiogram, stress testing Status: Acute Qualifiers: Heart failure chronicity: unspecified Heart failure type: unspecified Qualified Code(s): I50.9 - Heart failure, unspecified (3) Uncontrolled hypertension: Status: Acute (4) Chronic kidney disease: Status: Acute Qualifiers: Chronic kidney disease stage: unspecified stage Qualified Code(s): N18.9 - Chronic kidney disease, unspecified (5) Chest pain: -Sounds cardiac in nature, will order cardiac stress testing tomorrow, aspirin, statin, Coreg, nitro paste, telemetry monitoring, monitor for chest pain, does have a significant history of CAD Status: Acute (6) Multiple lacunar infarcts: Status: Acute (7) HLD (hyperlipidemia): Status: Acute (8) Current smoker: Status: Acute Attestations Medical Necessity Statement*: Patient requires hospitalization for hypertensive emergency, CHF, chest pain Coding Level of Care Code Acute Screening Tech for [facility] Artie Diagnoses Hypertensive emergency I16.1 Congestive heart failure I50.9 Heart failure chronicity: unspecified Heart failure type: unspecified Uncontrolled hypertension I10 Chronic kidney disease N18.9 Chronic kidney disease stage: unspecified stage Chest pain R07.9 Multiple lacunar infarcts I63.81 HLD (hyperlipidemia) E78.5 Current smoker F17.200
[2020-01-15] MEDS: amlodipine 10 mg Tablet PO (13:11)
[2020-01-15] MEDS: ALPRAZolam 0.5 mg Tablet PO (14:31)
[2020-01-15] MEDS: nicotine 21 mg Patch 1 PATCH TRANSDERMA (16:44)
--- NOTE | 2020-01-15 17:23 | USCV_ITS ---
Imelda Cabezas Age: 44 Gender: F : 1975 Exam Date: 01/15/2020 09:58 Ordering Phys: Andrae Menendez MD Technologist: Jasson Guerra Exam Location: [facility] [place] Indication: HTN CHF BP: 152 / 85 HR: 68 Rhythm: Sinus Technical Quality: Good MEASUREMENTS (Male / Female) Normal Values 2D ECHO LV Diastolic Diameter PLAX 4.2 cm 4.2 - 5.9 / 3.9 - 5.3 cm LV Systolic Diameter PLAX 3.2 cm IVS Diastolic Thickness 2.0 cm 0.6 - 1.0 / 0.6 - 0.9 cm IVS Systolic Thickness 2.1 cm LVPW Diastolic Thickness 1.6 cm 0.6 - 1.0 / 0.6 - 0.9 cm LVPW Systolic Thickness 2.0 cm LVOT Diameter 2.0 cm LV Ejection Fraction 2D Teich 47.7 % LV Ejection Fraction MOD 2C 65.0 % LV Ejection Fraction 2C AL 65.0 % LA Diameter 3.6 cm LA Width 4.4 cm LA Height 5.4 cm RA Width 3.9 cm RA Height 4.7 cm Aorta at Sinotubular Diameter 1.4 cm M-MODE LV Diastolic Diameter MM 5.6 cm 4.2 - 5.9 / 3.9 - 5.3 cm LV Systolic Diameter MM 4.0 cm LV Ejection Fraction MM Teich 55.4 % IVS Diastolic Thickness MM 1.7 cm 0.6 - 1.0 / 0.6 - 0.9 cm IVS Systolic Thickness MM 2.0 cm LVPW Diastolic Thickness MM 1.8 cm 0.6 - 1.0 / 0.6 - 0.9 cm LVPW Systolic Thickness MM 2.2 cm RV Diastolic Diameter MM 1.0 cm Aortic Annulus Diameter 3.3 cm LA Ao Ratio MM 1.1 MV E Point Septal Separation 1.1 cm DOPPLER AV Peak Velocity 186.0 cm/s LVOT Peak Velocity 122.0 cm/s AV Area Cont Eq vti 1.8 cm squared AV Area Cont Eq pk 2.1 cm squared MV Area PHT 2.2 cm squared Mitral E to A Ratio 1.0 MV E' Velocity 10.0 cm/s Mitral E to MV E' Ratio 14.4 Mitral E to LV E' Lateral Ratio 10.3 Mitral E to LV E' Septal Ratio 24.1 TR Peak Velocity 191.0 cm/s TR Peak Gradient 14.5 mmHg TV Peak E Velocity 82.0 cm/s Right Atrial Pressure 3.0 mmHg Pulmonary Artery Systolic Pressu 17.6 mmHg PV Peak Velocity 121.0 cm/s FINDINGS Left Ventricle Normal left ventricular cavity size. Severe concentric left ventricular hypertrophy. Normal left ventricular systolic function. No regional wall motion abnormality. Left ventricular ejection fraction is estimated at 59 %. No diagnostic regional wall motion abnormality. Grade II diastolic dysfunction, moderately elevated filling pressures. Right Ventricle Normal right ventricular size and systolic function. Right ventricular systolic pressure 17.6 mmHg. Right Atrium Normal right atrial size. Left Atrium Upper normal left atrial size. Mitral Valve Moderately thickened mitral valve. No mitral valve stenosis. Trace-mild mitral valve regurgitation. Aortic Valve Aortic valve not well visualized. No aortic valve stenosis. Trace aortic valve regurgitation. Tricuspid Valve Structurally normal tricuspid valve. No tricuspid valve stenosis. Mild tricuspid valve regurgitation. Pulmonic Valve Pulmonic valve not well visualized. Pericardium No pericardial effusion. Normal-sized inferior vena cava. Aorta Normal-sized aortic root. CONCLUSIONS 1. Normal left ventricular cavity size and systolic function. Severe concentric left ventricular hypertrophy. No regional wall motion abnormality. Left ventricular ejection fraction is estimated at 59 %. No diagnostic regional wall motion abnormality. Grade II diastolic dysfunction, moderately elevated filling pressures. 2. Normal right ventricular size and systolic function. 3. Mild tricuspid valve regurgitation. 4. Normal pulmonary artery pressure. 5. No prior similar studies to compare. Cindi Velázquez MD (Electronically Signed) Final Date: 15 January 2020 17:13 S
--- NOTE | 2020-01-15 17:23 | NMCV_ITS ---
NM qiana perf SPECT r/s* [id number] Imelda Cabezas Age: 44 Gender: F : 1975 Exam Date: 01/15/2020 07:08 Ordering Phys: nAdrae Menendez MD Technologist: JAME Ho Exam Location: [facility] Indications: MED REFILL AND HIGH BLOOD PRESSURE STRESS TEST Please see separate stress test report in [facility] for full findings IMAGE PROTOCOL Rest/Stress 1 Lexiscan Day Radiopharmaceutical Dose (mCi) Administration Site Administered by Rest: Tc-99m 10.8 IV JAME Arizmendi Sestamibi Stress:Tc-99m 32.5 IV JAME Arizmendi Sestamibi Rest: 15-Jan-2020 60 Discovery 630 Stress: 15-Jan-2020 30 Discovery 630 0.4mg Lexiscan. Images obtained in supine and prone position. SPECT RESULTS Technical Quality: Good Raw Data Analysis: Subdiaphragmatic activity Image Corrections: No attenuation or motion correction applied Summed Stress Score: 10 Summed Rest Score: 2 Summed Difference Score: 8 PERFUSION FINDINGS Medium sized perfusion abnormality of mild to moderate severity of basal to mid inferior, basal to mid inferolateral and apical lateral corcoran on stress images. FUNCTIONAL RESULTS (calculated via Gated SPECT) Stress Image LV EF (%): 39 Stress EDV (mL):206 TID: 1.12 Stress ESV (mL):125 FUNCTIONAL FINDINGS: The left ventricle is normal in size. Transient Ischemia Dilatation of 1.1. There is moderately reduced left ventricular global systolic function. The left ventricular ejection fraction is moderately reduced with a value of 39%. There is hypokinesis of inferior and lateral corcoran. Increased end-diastolic and end-systolic volumes. IMPRESSIONS 1. Medium sized partially reversible perfusion abnormality of mild to moderate severity of basal to mid inferior, basal to mid inferolateral and apical lateral corcoran on stress images. 2. This may represent small area of ischemia in right coronary artery/circumflex artery territory, however attenuation artifact cannot be completely ruled out. 3. The left ventricular ejection fraction is moderately reduced with a value of 39%. 4. There is hypokinesis of inferior and lateral corcoran. 5. No prior similar studies to compare. Cindi Velázquez MD (Electronically Signed) Final Date: 15 January 2020 12:41 S
[2020-01-15] MEDS: LORazepam 2 mg/mL INJ 1 mL 1 MG PO (18:04)
[2020-01-15] MEDS: LORazepam 1 mg Tablet PO ×2 (18:05)
--- NOTE | 2020-01-15 18:29 | P.DS_ITS ---
Discharge Providers Date of Admission: 01/14/20 19:41 Date of Discharge: January 15, 2020 Attending Provider at Admission: Andrae Menendez MD Attending Provider at Discharge: Andare Menendez MD Diagnoses at Discharge Discharge Diagnosis (1) Hypertensive emergency: Status: Resolved (2) Congestive heart failure: Status: Acute Qualifiers: Heart failure chronicity: unspecified Heart failure type: unspecified Qualified Code(s): I50.9 - Heart failure, unspecified (3) Uncontrolled hypertension: Status: Acute (4) Chronic kidney disease: Status: Acute Qualifiers: Chronic kidney disease stage: unspecified stage Qualified Code(s): N18.9 - Chronic kidney disease, unspecified (5) Chest pain: Status: Resolved (6) Multiple lacunar infarcts: Status: Acute (7) HLD (hyperlipidemia): Status: Acute (8) Current smoker: Status: Acute Reason for Visit Reason for Visit: med refill and high bp Hospital Course Discharge Summary: This is a 44-year-old female with a past medical history of noncompliance, systolic heart failure, hyperlipidemia, poorly controlled hypertension, who presents from [facility] to [facility] emergency room for complaints of, chest pain, shortness of breath, elevated blood pressure Patient was admitted to [facility] intensive care unit, for hypertensive emergency, systolic blood pressure greater than 220, diastolic blood pressures greater than 120, she was started on a Cardene drip, her blood pressure were gradually reduced. It is quite noticeable that when patient becomes quite anxious, her blood pressures spiked to the levels of hypertensive urgency, but when she calms down her blood pressure does normalize. Patient was eventually weaned off Cardene drip, transitioned to oral medications. I have discharged the patient on Norvasc 10 mg daily, Coreg 6.25 twice daily, chlorthalidone 25 mg daily, lisinopril 20 mg twice daily, Lasix 20 mg p.o. daily. I will have patient follow-up on Monday at the [facility] for a blood pressure check. Patient was advised that if she were to have chest pain, shortness of breath, strokelike symptoms call 911. Of note on imaging of the CT of the head, patient was found to have multiple lacunar infarcts, likely ischemic related to hypertension, she was discharged on aspirin, statin, and better blood pressure control. Patient was also found to have found significant hyperlipidemia, cholesterol 212, LDL 155, HDL 40, triglycerides 83. Discharged on statin. Given her chest pain, her history of noncompliance, or hypertensive emergency, EKG changes of T wave inversions in lateral leads, minimally elevated troponins, with no significant delta, patient had an echocardiogram which showed an ejection fraction of 59%, grade 2 out of 4 diastolic dysfunction, severe concentric left ventricular hypertrophy. She also had cardiac stress testing, which showed Medium sized partially reversible perfusion abnormality of mild to moderate severity of basal to mid inferior, basal to mid inferolateral and apical lateral corcoran on stress images, This may represent small area of ischemia in right coronary artery/circumflex artery territory, however attenuation artifact cannot be completely ruled out. The left ventricular ejection fraction is moderately reduced with a value of 39% and there is hypokinesis of inferior and lateral corcoran. Patient was quite adamant about going home. I had an extensive discussion with the patient, it is likely that her stress test findings, echo findings are likely related to poorly controlled hypertension, likely nonischemic cardiomyopathy. However, we cannot rule out ischemic cardiomyopathy, cannot rule out a compromised coronary artery, given her history of noncompliance, and her risk factors of smoking, and family history. All that being said, I advised patient to take her blood pressure and medications as prescribed, aspirin, statin, beta-chivo, to quit smoking. Patient was advised to come immediately to the emergency room if she were to have chest pain. Patient was advised to follow-up with her primary care provider on Monday for blood pressure check. Patient was advised to follow with cardiology in 1 week. I made it absolutely clear to patient, that it is still possible that she might have coronary artery disease, or ischemic cardiomyopathy, that is why I have discharged on aspirin and statin, and that as she is adamant about going home we will postpone inpatient work-up, and have her follow-up with cardiology as outpatient and decide if further outpatient work-up such as angiogram would be prudent. Advised the patient the risks and benefits, advised of morbidity and mortality, voiced understanding, all questions answered, agreed to proceed, patient adamant about going home. I was absolutely clear to patient that she has to be compliant with all medication and plans as above, and if not she has a high risk of morbidity and mortality. Physical Exam Const: COMMON NORMALS: no acute distress and patient oriented x3 HENMT: COMMON NORMALS: normocephalic HEAD & SCALP: normocephalic Neck/C-Spine: COMMON NORMALS: no JVD Resp: COMMON NORMALS: normal respiratory effort, No retractions, No use of accessory muscles and clear to auscultation bilaterally AUSCULTATION: clear to auscultation bilaterally Cardio: COMMON NORMALS: no JVD, regular rate, regular rhythm, S1 normal heart sound present and S2 normal heart sound present RATE: regular rate RHYTHM: regular rhythm HEART SOUNDS: S1 normal heart sound present and S2 normal heart sound present GI: COMMON NORMALS: Normal to inspection, nondistended, normoactive bowel sounds present, Soft to palpation, non-tender, No hepatosplenomegaly present, no masses and no bruits PALPATION: Yes Soft to palpation and Yes No hepatosplen omegaly present Extremity: COMMON NORMALS: capillary refill normal, no clubbing, cyanosis or edema, no calf tenderness and no pedal edema Neuro: COMMON NORMALS: patient oriented x3 Psych: COMMON NORMALS: mental status grossly normal Discharge Data Data Completed and Pending: Completed Studies During Hospitalization Category Date Time Status CT head wo con* 7 0450 Urgent Cat Scan 01/14/20 17:23 Completed Sestamibi Stress Test Request Routi ne Exams 01/14/20 17:23 Completed XR chest 1V manan ble [id number] Urgent Exams 01/14/20 15:13 Completed NM qiana perf SPECT r/s* [id number] Routin e Nuc Med 01/15/20 17:23 Completed CV echo complete* [id number] Routine Ultrasound 01/15/20 17:23 Completed Pending at discharge Category Date Time Status Complete Blood Co unt w/Auto AM LABS Lab 01/16/20 04:00 Ordered Complete Blood Co unt w/Auto AM LABS Lab 01/17/20 04:00 Ordered Comprehensive Met abolic Panel AM LA BS Lab 01/16/20 04:00 Ordered Comprehensive Met abolic Panel AM LA BS Lab 01/17/20 04:00 Ordered Magnesium AM LABS Lab 01/16/20 04:00 Ordered Magnesium AM LABS Lab 01/17/20 04:00 Ordered Phosphorus AM LAB S Lab 01/16/20 04:00 Ordered Phosphorus AM LAB S Lab 01/17/20 04:00 Ordered Labs from last 24 hours 01/15/20 01/15/20 01/15/20 04:03 04:03 04:03 WBC 8.6 RBC 4.36 Hgb 12.5 Hct 41.1 MCV 94.3 MCH 28.7 MCHC 30.4 RDW 15.8 H Plt Count 158 MPV 13.2 H Neut % (Auto) 63.6 Lymph % (Auto) 26.4 [place] % (Auto) 7.2 Eos % (Auto) 2.2 Baso % (Auto) 0.3 Neut # (Auto) 5.46 Lymph # (Auto) 2.3 [place] # (Auto) 0.6 Eos # (Auto) 0.2 Baso # (Auto) 0.0 Nucleated RBC % (a uto) 0 Nucleated RBCs # 0.0 Sodium 135 L Potassium 4.5 Chloride 106 Carbon Dioxide 18 L Anion Gap 15.5 BUN 29 H Creatinine 1.4 H GFR Calculation 40.5 L Glucose 94 Estimat Average Gl ucose Hemoglobin A1c Calculated Osmolal ity 277 L Calcium 8.7 Phosphorus 4.8 H Magnesium 2.1 Total Bilirubin 0.2 AST 12 ALT 8 Alkaline Phosphata se 62 Troponin T Hi Sens 6Hr Troponin T Hi Sens 6Hr Delta Total Protein 7.4 Albumin 3.7 Globulin 3.7 Triglycerides 83 Cholesterol 212 H LDL Cholesterol, C alc 155 H HDL Cholesterol 40 L LDL/HDL Ratio 3.88 H Cholesterol/HDL Ra lisa 5.30 H TSH HCG, Qual Urine Opiates Scre en Ur Barbiturates Sc reen Ur Phencyclidine S crn Ur Amphetamines Sc reen U Benzodiazepines Scrn Urine Cocaine Scre en U Marijuana (THC) Screen 01/14/20 01/14/20 01/14/20 22:01 15:47 15:47 WBC RBC Hgb Hct MCV MCH MCHC RDW Plt Count MPV Neut % (Auto) Lymph % (Auto) [place] % (Auto) Eos % (Auto) Baso % (Auto) Neut # (Auto) Lymph # (Auto) [place] # (Auto) Eos # (Auto) Baso # (Auto) Nucleated RBC % (a uto) Nucleated RBCs # Sodium Potassium Chloride Carbon Dioxide Anion Gap BUN Creatinine GFR Calculation Glucose Estimat Average Gl ucose 103 Hemoglobin A1c 5.2 Calculated Osmolal ity Calcium Phosphorus Magnesium Total Bilirubin AST ALT Alkaline Phosphata se Troponin T Hi Sens 6Hr 11.66 H Troponin T Hi Sens 6Hr Delta 0.66 Total Protein Albumin Globulin Triglycerides Cholesterol LDL Cholesterol, C alc HDL Cholesterol LDL/HDL Ratio Cholesterol/HDL Ra lisa TSH 1.12 HCG, Qual Urine Opiates Scre en Ur Barbiturates Sc reen Ur Phencyclidine S crn Ur Amphetamines Sc reen U Benzodiazepines Scrn Urine Cocaine Scre en U Marijuana (THC) Screen 01/14/20 01/14/20 02:50 02:50 WBC RBC Hgb Hct MCV MCH MCHC RDW Plt Count MPV Neut % (Auto) Lymph % (Auto) [place] % (Auto) Eos % (Auto) Baso % (Auto) Neut # (Auto) Lymph # (Auto) [place] # (Auto) Eos # (Auto) Baso # (Auto) Nucleated RBC % (a uto) Nucleated RBCs # Sodium Potassium Chloride Carbon Dioxide Anion Gap BUN Creatinine GFR Calculation Glucose Estimat Average Gl ucose Hemoglobin A1c Calculated Osmolal ity Calcium Phosphorus Magnesium Total Bilirubin AST ALT Alkaline Phosphata se Troponin T Hi Sens 6Hr Troponin T Hi Sens 6Hr Delta Total Protein Albumin Globulin Triglycerides Cholesterol LDL Cholesterol, C alc HDL Cholesterol LDL/HDL Ratio Cholesterol/HDL Ra lisa TSH HCG, Qual Negative Urine Opiates Scre en Negative Ur Barbiturates Sc reen Negative Ur Phencyclidine S crn Negative Ur Amphetamines Sc reen Negative U Benzodiazepines Scrn Negative Urine Cocaine Scre en Negative U Marijuana (THC) Screen Negative Vitals: Last Vital Signs Temp 98.5 F 01/14/20 19:41 Pulse 68 01/15/20 18:00 Resp 17 01/15/20 18:00 BP 186/134 01/15/20 18:00 Pulse Ox 96 01/15/20 14:20 Discharge Plan Discharge Patient Disposition: Home Condition: Stable Prescriptions: New atorvastatin 40 mg Tablet 40 mg PO DAILY 30 Days Qty: 30 RF: 0 aspirin 81 mg Tablet,Delayed Release (Dr/Ec) 81 mg PO DAILY 30 Days Qty: 30 RF: 0 alprazolam 0.5 mg Tablet 0.5 mg PO BID PRN (Reason: anxiety) 7 Days Qty: 14 RF: 0 amlodipine 10 mg Tablet 10 mg PO DAILY 30 Days Qty: 30 RF: 0 Coreg 6.25 mg tablet 6.25 mg PO BID 30 Days Qty: 60 RF: 0 lisinopril 20 mg Tablet 20 mg PO BID 30 Days Qty: 60 RF: 0 chlorthalidone 25 mg Tablet 25 mg PO DAILY 30 Days Qty: 30 RF: 0 Lasix 20 mg tablet 20 mg PO DAILY 30 Days Qty: 30 RF: 0 Klor-Con M20 20 mEq tablet,ER particles/crystals 20 meq PO DAILY 30 Days Qty: 30 RF: 0 Discontinued lisinopril 20 mg tablet 20 mg PO DAILY RF: 0 Discharge Orders: Discharge Order (Routine); Ordered 01/15/20 Ordered By: Andrae Menendez Other Ambulatory Orders: Comprehensive Metabolic Panel (Routine) Timeframe: 1 Week Facility: [facility] - Location: Lab - Main Lab Ordered By: Andrae Menendez Referrals: Cindi Velázquez MD [Physician] - 1-3 days Discharge Diet: Cardiac Patient Instructions: Angina (GEN), Heart Failure (DC), Chest Pain (DC), How to Stop Smoking (GEN), Cigarette Smoking and Your Health (GEN), Chronic Hypertension (GEN), DASH Eating Plan (DC), Hypertensive Crisis (DC) Activity Restrictions/Additional Instructions: -Follow-up with the [facility] clinic on Monday for a blood pressure check -If you have chest pain, shortness of breath, call 911 -If you have strokelike symptoms call 911 -Take blood pressure medications as prescribed Discharge Date/Time: 01/15/20 19:47 Discharge Attestations Time Spent in Discharge Care*: less than 30 min Quality Metrics Clinical Quality Measures During this hospital stay, did patient experience: None Coding Level of Care Code Acute [employer] for [employer] Fwd Exam Comprehensive Diagnoses Hypertensive emergency I16.1 Congestive heart failure I50.9 Heart failure chronicity: unspecified Heart failure type: unspecified Uncontrolled hypertension I10 Chronic kidney disease N18.9 Chronic kidney disease stage: unspecified stage Chest pain R07.9 Multiple lacunar infarcts I63.81 HLD (hyperlipidemia) E78.5 Current smoker F17.200
[2020-01-15] MEDS: FUROsemide 10 mg/mL SDV 4mL 40 MG IVP (18:52)
[2020-01-15] MEDS: enoxaparin 40 mg/0.4 mL Syringe SUBCUT (18:52)
--- NOTE | 2020-01-15 19:28 | P.CONIM_ITS ---
Providers/Reason For Consult Consulting Physican/Specialty*: Dr. Velázquez, cardiology Reason for Consult*: Abnormal stress test Attending Physician: Andrae Menendez MD History of Present Illness History of Present Illness Imelda Cabezas is a 44 year old female with past medical history of noncompliance, hypertension, unspecified CHF, hypertensive nephropathy who presented to [facility] from [facility] with complaints of chest pain, shortness of breath and elevated blood pressure. She is originally from [place] and at one point she was on 3 antihypertensive medications. She was admitted at [facility] for CHF exacerbation and was given a few refills of lisinopril and Lasix. She is out of the Lasix. She has been having substernal chest pain described as tightness across her anterior chest associated with shortness of breath mostly with exertion and bilateral lower extremity edema. Denies any history of CAD or history of stress testing. In the emergency room, patient was found to have hypertensive emergency with chest pain, her blood pressures were in the 190s over 160s. She was admitted to ICU a nd placed on nicardipine drip. Stress test was done today and it was mildly abnormal. I have been asked to assist in further management. Review of Systems Const: Denies: fever(s), chills, fatigue or malaise Eyes: Denies: change in vision or blurry vision ENMT: Denies: nasal congestion Card: Reports: chest pain, palpitations and edema; Denies: syncope or pre-syncope Resp: Denies: dyspnea, productive cough, non-productive cough or wheezing GI: Denies: abdominal pain, nausea, vomiting, hematemesis, diarrhea, constipation, hematochezia or melena : Denies: flank pain, dysuria or urinary frequency Musc: Denies: neck pain or back pain Skin/Breast: Denies: rash Neuro: Denies: headache(s), dizziness or vertigo Psych: Denies: anxiety or depression Endo: Denies: polyuria or polydipsia Meds/Allergies Home Medications and Allergies Home Medications Medication Instructions Recorded Confirmed Last Taken Type alprazolam 0.5 mg PO BID PRN 7 Days #14 tab 01/15/20 Unknown Rx amlodipine 10 mg PO DAILY 30 Days #30 tab 01/15/20 Unknown Rx aspirin 81 mg PO DAILY 30 Days #30 tab 01/15/20 Unknown Rx atorvastatin 40 mg PO DAILY 30 Days #30 tab 01/15/20 Unknown Rx carvedilol [Coreg] 6.25 mg PO BID 30 Days #60 tab 01/15/20 Unknown Rx chlorthalidone 25 mg PO DAILY 30 Days #30 tab 01/15/20 Unknown Rx furosemide [Lasix] 20 mg PO DAILY 30 Days #30 tab 01/15/20 Unknown Rx lisinopril 20 mg PO BID 30 Days #60 tab 01/15/20 Unknown Rx nitroglycerin 0.4 mg SUBLINGUAL Q5M PRN 5 Days 01/15/20 Unknown Rx #5 tab potassium chloride [Klor-Con M20] 20 meq PO DAILY 30 Days #30 tab 01/15/20 Unknown Rx Allergies Allergy/AdvReac Type Severity Reaction Status Date / Time No Known Allergies Allergy Verified 01/14/20 15:35 Current Medications Current Medications Generic Name Dose Route Start Last Admin Trade Name Freq PRN Reason Stop Dose Admin Alprazolam 0.5 mg 01/15/20 14:13 01/15/20 14:31 Xanax PO 0.5 mg BID PRN Administration anxiety Amlodipine Besylate 10 mg 01/15/20 12:20 01/15/20 13:11 Norvasc PO 10 mg DAILY DENICE Administration Aspirin 81 mg 01/14/20 19:41 01/15/20 09:30 Aspirin Ec PO 81 mg DAILY DENICE Administration Atorvastatin Calcium 40 mg 01/14/20 19:41 01/15/20 09:29 Lipitor PO 40 mg DAILY DENICE Administration Carvedilol 3.125 mg 01/14/20 19:41 01/15/20 18:05 Coreg PO 3.125 mg BID DENICE Administration Chlorthalidone 25 mg 01/15/20 07:40 01/15/20 10:37 Thalitone PO 25 mg DAILY DENICE Administration Enoxaparin Sodium 40 mg 01/14/20 19:41 01/15/20 18:52 Lovenox SUBCUT 40 mg Q24H DENICE Administration Lisinopril 20 mg 01/15/20 09:00 01/15/20 18:04 Prinivil PO 20 mg BID DENICE Administration Nicotine 1 patch 01/15/20 14:30 01/15/20 16:44 Nicoderm 21 Mg Patch TRANSDERMA 1 patch DAILY DENICE Administration PFSH Acute PFSH: Medical History Current smoker Surgical History No pertinent past surgical history Family History Mother CAD (coronary artery disease) Grandmother CAD (coronary artery disease) Social History Smoking and tobacco status: current every day smoker Alcohol intake: never Female Reproductive History: Date of last menstrual period: 12/31/19 Vitals/I&O/Wt Last Vital Signs Temp 98.5 F 01/14/20 19:41 Pulse 68 01/15/20 18:00 Resp 17 01/15/20 18:00 BP 186/134 01/15/20 18:00 Pulse Ox 96 01/15/20 14:20 01/15/20 01/15/20 01/15/20 06:59 14:59 22:59 Intake Total 45 / 105.833 960 / 960 480 / 1440 Output Total 400 / 400 Balance -355 / -294.167 960 / 960 480 / 1440 Weight last 48 hrs Weight 150 lb Physical Exam Const: COMMON NORMALS: no acute distress, patient oriented x3 and alert GENERAL APPEARANCE: cooperative, comfortable, well kempt and well hydrated HENMT: COMMON NORMALS: normocephalic, atraumatic, hearing grossly normal bilaterally and external ears normal HEAD & SCALP: normocephalic and atraumatic EXTERNAL EAR: Yes external ears normal Eye: COMMON NORMALS: Equal, round and reactive pupils present, EOMs intact bilaterally, conjunctivae normal and no scleral icterus GENERAL EYE: appearance normal, both eyes and all related structures ALIGNMENT: Yes alignment normal CONJUNCTIVA: Yes conjunctivae normal SCLERA: sclerae normal PUPIL: Yes Equal, round and reactive pupils present Neck/C-Spine: COMMON NORMALS: supple and no JVD GENERAL: Yes normal visual inspection CAROTIDS: Yes normal carotid upstroke Chest: COMMONS NORMALS: normal inspection of the chest and normal palpation of entire chest wall CHEST: Yes Symmetrical chest wall rise and No tenderness Resp: COMMON NORMALS: clear to auscultation bilaterally AUSCULTATION: clear to auscultation bilaterally, no crackles, no rales, no rhonchi, no wheezes and vesicular breath sounds Cardio: COMMON NORMALS: no JVD, regular rate, regular rhythm, S1 normal heart sound present, S2 normal heart sound present and Peripheral pulses 2+ throughout PALPATION: normal PMI RATE: regular rate RHYTHM: regular rhythm HEART SOUNDS: S1 normal heart sound present, S2 normal heart sound present, no gallops and no murmurs BRUITS: no carotid bruits PERIPHERAL PULSES: Peripheral pulses 2+ throughout, radial pulses present, posterior tibial pulses present and dorsalis pedis present GI: COMMON NORMALS: Soft to palpation and No hepatosplenomegaly present AUSCULTATION: Yes normoactive bowel sounds PALPATION: Yes Soft to palpation, No Tenderness to palpation present (GI), No Guarding due to palpation present (GI), No Rigid due to palpation and Yes No hepatosplenomegaly present Extremity: GENERAL: No calf tenderness, No cyanosis, Yes edema and No pallor Neuro: COMMON NORMALS: patient oriented x3, CN's II-XII intact bilaterally, no focal motor deficits and gait normal SENSORIUM/ORIENTATION: Yes alert Psych: COMMON NORMALS: Normal thought process present and speech normal APPEARANCE: Yes well kempt SPEECH: Yes normal speech MOOD & AFFECT: Yes euthymic mood THOUGHT PROCESS: Normal thought process present Data Imaging^: Other Imaging: I personally reviewed and interpreted this imaging study as follows: My impression: Sestamibi lexiscan MPI (01/15/20) IMPRESSIONS 1. Medium sized partially reversible perfusion abnormality of mild to moderate severity of basal to mid inferior, basal to mid inferolateral and apical lateral corcoran on stress images. 2. This may represent small area of ischemia in right coronary artery/circumflex artery territory, however attenuation artifact cannot be completely ruled out. 3. The left ventricular ejection fraction is moderately reduced with a value of 39%. 4. There is hypokinesis of inferior and lateral corcoran. 5. No prior similar studies to compare. # TTE (01/15/20) CONCLUSIONS 1. Normal left ventricular cavity size and systolic function. Severe concentric left ventricular hypertrophy. No regional wall motion abnormality. Left ventricular ejection fraction is estimated at 59 %. No diagnostic regional wall motion abnormality. Grade II diastolic dysfunction, moderately elevated filling pressures. 2. Normal right ventricular size and systolic function. 3. Mild tricuspid valve regurgitation. 4. Normal pulmonary artery pressure. 5. No prior similar studies to compare. # CT head IMPRESSION: No acute findings. Small chronic appearing left thalamic and left centrum semiovale region lacunar infarctions. A&P Assessment and plan (1) Abnormal stress test: Mildly abnormal stress test with small area of ischemia in inferior/inferolateral corcoran . However, it could be due to sub-diaphragmatic attenuation artifact. -Further management option discussed with the patient in detail of medical management vs coronary angiogram. -Patient opted for medical management and I agree with her. -continue ASA, statin and beta chivo. Status: Acute (2) Uncontrolled hypertension: -Severe concentric LVH on echo. -She is off IV drip. She would need further medication optimization. -BP still elevated. Status: Acute (3) Congestive heart failure: Diastolic CHF Status: Acute Qualifiers: Heart failure chronicity: acute on chronic Heart failure type: diastolic Qualified Code(s): I50.33 - Acute on chronic diastolic (congestive) heart failure (4) Chronic kidney disease: Status: Acute Qualifiers: Chronic kidney disease stage: unspecified stage Qualified Code(s): N18.9 - Chronic kidney disease, unspecified (5) HLD (hyperlipidemia): Status: Acute Qualifiers: Hyperlipidemia type: mixed hyperlipidemia Qualified Code(s): E78.2 - Mixed hyperlipidemia (6) Multiple lacunar infarcts: Status: Acute (7) Current smoker: Status: Acute Coding Level of Care Code Acute [employer] for [facility] Fwd Diagnoses Abnormal stress test R94.39 Uncontrolled hypertension I10 Congestive heart failure I50.33 Heart failure chronicity: acute on chronic Heart failure type: diastolic Chronic kidney disease N18.9 Chronic kidney disease stage: unspecified stage HLD (hyperlipidemia) E78.2 Hyperlipidemia type: mixed hyperlipidemia Multiple lacunar infarcts I63.81 Current smoker F17.200
--- NOTE | 2020-01-15 19:50 | PC.NURSE ---
All discharge instructions explained and copies given to patient. Patient has no questions at this time. IV removed, catheter intact. Nicotine patch removed. Patient discharged safely to private vehicle via wheelchair.
--- NOTE | 2020-01-17 08:40 | PC.RESP ---
SMOKING CESSATION INFORMATION SENT TO PATIENT.
== END 2020-01-15 19:47 | disposition home or self-care (01) | DRG 304 ==
LOC: ER 17:00 → CSU 17:27 → ICU 18:59
PROVIDERS: Physician Assistant; Admitting Provider Family Medicine; Visit Provider Family Medicine
DX: I16.1 Hypertensive emergency (principal); I50.33 Acute on chronic diastolic (congestive) heart failure; I13.0 Hypertensive heart and chronic kidney disease with heart failure and stage 1 through stage 4 chronic kidney disease, or unspecified chronic kidney disease; N18.9 Chronic kidney disease, unspecified; F17.210 Nicotine dependence, cigarettes, uncomplicated; I25.10 Atherosclerotic heart disease of native coronary artery without angina pectoris; E78.2 Mixed hyperlipidemia; Z91.14 Patient's other noncompliance with medication regimen; R94.39 Abnormal result of other cardiovascular function study; Z86.73 Personal history of transient ischemic attack (TIA), and cerebral infarction without residual deficits
CPT/HCPCS: 12345; 36415; 70450; 71045; 78452; 80053; 80061; 80306; 81025; 83036; 83735; 83880; 84100; 84443; 84484; 85025; 93005; 93017; 93306; 94664; 96375; 99283; A9500; G0378; J1650; J1940; J2060; J2785

== ENCOUNTER 2020-04-18 20:26 | Emergency (ER) | payer SELFPAY ==
[2020-04-18 20:27] VITALS: BP 204/105; PULSE 68; RESP 18; TEMP 36.6; O2SAT 99; BMI 25.7
--- NOTE | 2020-04-18 20:30 | ED_ITS ---
HPI - Fall General: Chief Complaint: Fall Stated Complaint: FALL Time Seen by Provider: 04/18/20 20:27 Source: patient and EMS Mode of arrival: EMS Limitations: no limitations History of Present Illness: HPI Narrative: 44-year-old female who is here by EMS. She states she was drinking fruit punch alcohol tonight with friends. She states she stepped out in her garage and fell down a 12 inch step. She landed on her face has bloody to her nose along with head and neck pain. She denies any other injuries. States her pain is a 3 out of 10. Patient is intoxicated. Denies any worsening improving factors. Associated symptoms-after fall: Reports headache(s); Denies abdominal pain, chest pain or neck pain Review of Systems Const: Denies: fever(s), chills, body aches or change in appetite Eyes: Denies: blurry vision or eye discomfort ENMT: Denies: throat pain or dental pain Card: Denies: chest pain Resp: Denies: dyspnea GI: Denies: abdominal pain, nausea, vomiting or diarrhea : Denies: dysuria Musc: Denies: neck pain or back pain Skin/Breast: Denies: rash Neuro: Reports: headache(s) Psych: Denies: depression Matias/Lymph: Denies: easy bruising All/Imm: Denies: urticaria PFSH ED PFSH: Medical History Current smoker Surgical History No pertinent past surgical history Family History Mother CAD (coronary artery disease) Grandmother CAD (coronary artery disease) Social History Smoking and tobacco status: current every day smoker Alcohol intake: never Female Reproductive History: Date of last menstrual period: 12/31/19 Physical Exam Const: COMMON NORMALS: patient oriented x3 GENERAL APPEARANCE: odor of alcohol detected HENMT: COMMON NORMALS: normocephalic HEAD & SCALP: normocephalic OTHER: Contusion to nose along with forehead Eye: COMMON NORMALS: Equal, round and reactive pupils present and EOMs intact bilaterally PUPIL: Yes Equal, round and reactive pupils present Neck/C-Spine: COMMON NORMALS: full ROM and supple Chest: COMMONS NORMALS: normal inspection of the chest and normal palpation of entire chest wall Resp: COMMON NORMALS: normal respiratory effort, No retractions, No use of accessory muscles and clear to auscultation bilaterally AUSCULTATION: clear to auscultation bilaterally Cardio: COMMON NORMALS: regular rate, regular rhythm and No murmurs present (Cardio) RATE: regular rate RHYTHM: regular rhythm GI: COMMON NORMALS: Normal to inspection, nondistended, normoactive bowel sounds present, Soft to palpation, non-tender and no masses PALPATION: Yes Soft to palpation Extremity: COMMON NORMALS: normal to inspection and full ROM Neuro: COMMON NORMALS: patient oriented x3, moves all extremities and no focal motor deficits Psych: COMMON NORMALS: mental status grossly normal, Normal thought process present and cooperative THOUGHT PROCESS: Normal thought process present Skin: COMMON NORMALS: no rashes or lesions noted and no wounds GENERAL SKIN EXAM: no rashes or lesions noted Course Vital Signs: Vital signs: Vital Signs Temperature 97.8 F 04/18/20 20:27 Pulse Rate 62 04/18/20 21:58 Respiratory Rate 17 04/18/20 21:58 Blood Pressure 148/82 04/18/20 21:58 Pulse Oximetry 99 04/18/20 21:58 MDM - Fall MDM Narrative: Medical decision making narrative: Patient presents here with fall and facial contusion. She is well-appearing here CT scans are all negati ve. Patient is able to ambulate and discharged and has been picking her up. Imaging Data^: CT Head: Radiologist's impression: [address] [address] [address] Scan Report Signed Patient: Imelda Cabezas Unit #: [id number] : 1975 Age/Sex: 44 / F ADM Date: 04/18/20 Loc: ER Room/Bed: Attending Dr: Ordering Provider/Ordering MD: Adenike Thomas MD Date of Service: 04/18/20 Procedure(s): CT head wo con* [id number] Accession Number(s): [id number] Report Number: [id number] PROCEDURE INFORMATION: Exam: CT Head Without Contrast Exam date and time: 04/18/2020 10:05 PM Age: 44 years old Clinical indication: Injury or trauma; Blunt trauma (contusions or hematomas); Without loss of consciousness; Patient HX: ETOH involved fall from a step - denies loc C/O neck pain and bloody nose TECHNIQUE: Imaging protocol: Computed tomography of the head without contrast. Radiation optimization: All CT scans at this facility use at least one of these dose optimization techniques: automated exposure control; mA and/or kV adjustment per patient size (includes targeted exams where dose is matched to clinical indication); or iterative reconstruction. COMPARISON: CT head wo con* [id number] 01/14/2020 5:53 PM RADIATION DOSE METRICS: Total DLP (mGy-cm): 742.09 FINDINGS: Brain: There is focal hypoattenuation seen within the central idalia on the left compatible with a chronic lacunar infarction. Focal hypoattenuation seen within the deep white matter of the left posterior frontal lobe compatible with a chronic lacunar infarction as well. Cerebral ventricles: No ventriculomegaly. Bones/joints: Unremarkable. No acute fracture. Paranasal sinuses: Visualized sinuses are unremarkable. No fluid levels. Mastoid air cells: Visualized mastoid air cells are well aerated. Soft tissues: Unremarkable. CT/CT head wo con* [id number] IMPRESSION: There are no acute intracranial findings. ct facial bones: Radiologist's impression: [address] [address] [address] Scan Report Signed Patient: Imelda Cabezas Unit #: [id number] : 1975 Age/Sex: 44 / F ADM Date: 04/18/20 Loc: ER Room/Bed: Attending Dr: Ordering Provider/Ordering MD: Adenike Thomas MD Date of Service: 04/18/20 Procedure(s): CT facial bones wo con* [id number] Accession Number(s): [id number] Report Number: [id number] PROCEDURE INFORMATION: Exam: CT Maxillofacial Without Contrast Exam date and time: 04/18/2020 10:05 PM Age: 44 years old Clinical indication: Injury or trauma; Blunt trauma (contusions or hematomas); Patient HX: ETOH involved fall from a step - denies loc C/O neck pain and bloody nose TECHNIQUE: Imaging protocol: Computed tomography images of the face without contrast. Radiation optimization: All CT scans at this facility use at least one of these dose optimization techniques: automated exposure control; mA and/or kV adjustment per patient size (includes targeted exams where dose is matched to clinical indication); or iterative reconstruction. COMPARISON: No relevant prior studies available. RADIATION DOSE METRICS: Total DLP (mGy-cm): 703.9 FINDINGS: Orbital cavity: Orbits are normal. Globes are unremarkable. Bones/joints: No acute fracture. Paranasal sinuses: Normal. No air-fluid levels. Soft tissues: Unremarkable. CT/CT facial bones wo con* [id number] IMPRESSION: No acute findings. Other CT: Radiologist's impression: [facility] [address] [address] Scan Report Signed Patient: Imelda Cabezas Unit #: [id number] : 1975 Age/Sex: 44 / F ADM Date: 04/18/20 Loc: ER Room/Bed: Attending Dr: Ordering Provider/Ordering MD: Adenike Thomas MD Date of Service: 04/18/20 Procedure(s): CT cervical spin wo con* [id number] Accession Number(s): [id number] Report Number: [id number] PROCEDURE INFORMATION: Exam: CT Cervical Spine Without Contrast Exam date and time: 04/18/2020 10:05 PM Age: 44 years old Clinical indication: Injury or trauma; Blunt trauma; Patient HX: ETOH involved fall from a step - denies loc C/O neck pain and bloody nose TECHNIQUE: Imaging protocol: Computed tomography images of the cervical spine without contrast. Radiation optimization: All CT scans at this facility use at least one of these dose optimization techniques: automated exposure control; mA and/or kV adjustment per patient size (includes targeted exams where dose is matched to clinical indication); or iterative reconstruction. COMPARISON: No relevant prior studies available. RADIATION DOSE METRICS: Total DLP (mGy-cm): 606.47 FINDINGS: Bones/joints: No acute fracture. Normal alignment. Discs/Spinal canal/Neural foramina: There is a mild diffuse loss of disc height seen within the cervical spine, most severe from C5-C7. New mild joint space narrowing, bone spurring and subcortical cystic degenerative changes seen within the facets of the cervical spine compatible with degenerative joint disease. Soft tissues: Unremarkable. Lungs: Lung apices are normal. CT/CT cervical spin wo con* [id number] IMPRESSION: There are no acute osseous findings. Discharge Plan Discharge Patient Disposition: Home Clinical Impression: Fall Qualifiers: Encounter type: initial encounter Qualified Code(s): W19.XXXA - Unspecified fall, initial encounter Contusion of face Qualifiers: Encounter type: initial encounter Qualified Code(s): S00.83XA - Contusion of other part of head, initial encounter Alcohol intoxication Qualifiers: Complication of substance-induced condition: uncomplicated Qualified Code(s): F10.920 - Alcohol use, unspecified with intoxication, uncomplicated Condition: Stable Prescriptions: No Action alprazolam 0.5 mg tablet 0.5 mg PO BID PRN (Reason: anxiety) 30 Days Qty: 45 RF: 0 amlodipine 10 mg tablet 10 mg PO DAILY 90 Days Qty: 90 RF: 1 aspirin 81 mg tablet,delayed release (DR/EC) 81 mg PO DAILY 90 Days Qty: 90 RF: 1 atorvastatin 40 mg tablet 40 mg PO DAILY 90 Days Qty: 90 RF: 1 carvedilol [Coreg] 3.125 mg tablet 3.125 mg PO BID 90 Days Qty: 180 RF: 1 chlorthalidone 25 mg tablet 25 mg PO DAILY 90 Days Qty: 90 RF: 1 citalopram [Celexa] 10 mg tablet 10 mg PO DAILY 90 Days Qty: 90 RF: 0 Lasix 20 mg tablet 20 mg PO DAILY 90 Days Qty: 90 RF: 1 lisinopril 20 mg tablet 20 mg PO BID 90 Days Qty: 180 RF: 1 nitroglycerin [Nitrostat] 0.4 mg tablet, sublingual 0.4 mg SUBLINGUAL Q5M PRN (Reason: chest pain) 3 Days Qty: 3 RF: 0 Discharge Orders: Discharge Order (Routine); Ordered 04/18/20 Ordered By: Adenike Thomas Discharge Diet: Advance as tolerated Discharge Activity: Resume usual activity Patient Instructions: Contusion in Adults (ED) Coding Level of Care Code ED Home Care Assistant for Lizz Fwyovany Exam Comprehensive
[2020-04-18 21:26] VITALS: BP 160/82; PULSE 65; RESP 17; O2SAT 99
[2020-04-18 21:58] VITALS: BP 148/82; PULSE 62; RESP 17; O2SAT 99
== END 2020-04-18 22:54 | disposition home or self-care (01) ==
PROVIDERS: Emergency Provider Emergency Medicine
DX: S00.83XA Contusion of other part of head, initial encounter (principal); F10.920 Alcohol use, unspecified with intoxication, uncomplicated; Z79.82 Long term (current) use of aspirin; F17.210 Nicotine dependence, cigarettes, uncomplicated; W10.8XXA Fall (on) (from) other stairs and steps, initial encounter
CPT/HCPCS: 12345; 70450; 70486; 72125; 99282

== ENCOUNTER 2020-10-12 13:34 | Emergency (ER) | payer SELFPAY ==
[2020-10-12 13:45] VITALS: PULSE 67; RESP 18; TEMP 36.8; O2SAT 98; BMI 28.8
--- NOTE | 2020-10-12 14:00 | XR_ITS ---
WS: [id number] Exam: XR chest 1V portable [id number] Date/Time of Exam: 10/12/2020 2:00 PM Reason For Exam: chest pain Comparison 01/14/2020. The lungs are clear and fully expanded. Normal cardiomediastinal structures and regional bony element s. Several calcified granulomas. XR/XR chest 1V portable [id number] IMPRESSION: 1. No acute cardiopulmonary finding.
--- NOTE | 2020-10-12 14:03 | W.ED.CHESTPA ---
HPI - Chest Pain General: Chief Complaint: Chest Pain Stated Complaint: HTN, IRREGULAR EKG--SENT BY MARIS Time Seen by Provider: 10/12/20 13:54 Source: patient, RN notes reviewed and old records reviewed Limitations: no limitations History of Present Illness: HPI narrative: This patient is a 44-year-old female who presents to the emergency department from Dr. Reyna's office. She reportedly was cut advised to come to the hospital due to questionable EKG. Patient does have a long history of cardiac issues and hypertension and has been intermittently noncompliant with blood pressure medications due to cost. Patient's blood pressure at this time is 160 systolic. Patient denies any cardiac symptoms. Will do medical evaluation treat as needed. Associated symptoms: Deny abdominal pain, dyspnea, fever(s), nausea, palpitations or vomiting Review of Systems General: Reports: 10 or more systems reviewed and unremarkable except in HPI and below Const: Denies: fever(s), chills, body aches or fatigue Eyes: Denies: change in vision or blurry vision ENMT: Denies: throat pain, hoarseness or mouth pain Card: Denies: chest pain, palpitations, irregular heart rhythm, edema, swelling of feet/ankles or lightheadedness Resp: Denies: dyspnea, productive cough, non-productive cough, wheezing or pain on inspiration GI: Denies: abdominal pain, nausea or vomiting : Denies: flank pain, difficulty voiding, dysuria, urinary frequency, urinary urgency or urinary hesitancy Musc: Denies: neck pain, back pain, extremity pain, extremity swelling, joint pain, joint swelling, joint redness, joint warmth or limited range of motion Skin/Breast: Denies: rash, pruritus, erythema or skin tenderness Neuro: Denies: headache(s), numbness in extremities or weakness in extremities Psych: Denies: anxiety or depression PFS ED PFSH: Medical History Current smoker Surgical History No pertinent past surgical history Family History Mother CAD (coronary artery disease) Grandmother CAD (coronary artery disease) Social History Smoking and tobacco status: current every day smoker Alcohol intake: never Female Reproductive History: Date of last menstrual period: 12/31/19 Physical Exam Const: COMMON NORMALS: no acute distress, average body habitus, patient oriented x3, no limitations, healthy appearing, alert and well nourished HENMT: COMMON NORMALS: normocephalic, atraumatic, hearing grossly normal bilaterally, external ears normal, EAC's normal, TM's normal bilaterally, Normal external nose present, Normal nasal mucous membranes and turbinates present, moist oral mucous membranes, oropharynx normal, dentition normal and gingiva normal HEAD & SCALP: normocephalic and atraumatic NOSE: Normal external nose present and Normal nasal mucous membranes and turbinates present EXTERNAL EAR: Yes external ears normal EXTERNAL AUDITORY CANAL: EAC's normal TYMPANIC MEMBRANE: TM's normal bilaterally Neck/C-Spine: COMMON NORMALS: full ROM, no lymphadenopathy, supple, no meningeal signs, no JVD, Thyroid normal and No carotid bruits THYROID: Thyroid normal Chest: COMMONS NORMALS: normal inspection of the chest, normal palpation of entire chest wall, normal inspection of the breasts and normal palpation of the breasts Breast/axilla inspection: Yes normal inspection of the breasts BREAST/AXILLA PALPATION: Yes normal palpation of the breasts Resp: COMMON NORMALS: normal respiratory effort, No retractions, No use of accessory muscles, clear to auscultation bilaterally and percussion normal AUSCULTATION: clear to auscultation bilaterally PERCUSSION: percussion normal Cardio: COMMON NORMALS: no JVD, regular rate, regular rhythm, S1 normal heart sound present, S2 normal heart sound present, No gallops present (Cardio), No clicks present (Cardio), No murmurs present (Cardio), No rub (Cardio) and Peripheral pulses 2+ throughout RATE: regular rate RHYTHM: regular rhythm HEART SOUNDS: S1 normal heart sound present and S2 normal heart sound present PERIPHERAL PULSES: Peripheral pulses 2+ throughout GI: COMMON NORMALS: Normal to inspection, nondistended, normoactive bowel sounds present, Soft to palpation, non-tender, No hepatosplenomegaly present, no masses and no bruits PALPATION: Yes Soft to palpation and Yes No hepatosplenomegaly present : COMMON NORMALS: Yes no CVA tenderness, Yes normal external appearance, Yes normal appearance of the vagina, Yes normal appearance of the cervix, Yes normal bimanual exam, Yes No adnexal tenderness and Yes no masses BLADDER/KIDNEY EXAM: Yes no CVA tenderness BIMANUAL EXAM - VAGINA & UTERUS: Yes normal bimanual exam Back/Pelvis: COMMON NORMALS: no CVA tenderness, thoracic and lumbar spine normal to inspection, no thoracic nor lumbar tenderness, thoraco-lumbar ROM normal and straight leg raise negative bilaterally Extremity: COMMON NORMALS: normal to inspection, full ROM, capillary refill normal, no joint enlargement, no clubbing, cyanosis or edema, no calf tenderness and no pedal edema Neuro: COMMON NORMALS: patient oriented x3 SENSORIUM/ORIENTATION: Yes alert MENINGEAL SIGNS: Yes no meningeal signs Course Reevaluation(s): Reevaluation #1: Negative evaluation in the emergency department for any acute cardiac findings. Patient does have chronic hypertension takes multiple global medications. Patient states she admittedly has not been fully compliant on all medications for blood pressure. Patient has negative EKGs here negative troponins. Patient does have an elevated proBNP most likely related to her hypertension. Patient currently is prescribed Lasix that she will continue this medication. Patient is to keep a blood pressure log try to take all medications as prescribed and follow-up with her PCP in 3 to 5 days. Time: 16:09 Vital Signs: Vital signs: Vital Signs Temperature 98.3 F 10/12/20 13:45 Pulse Rate 58 L 10/12/20 15:21 Respiratory Rate 20 H 10/12/20 15:21 Blood Pressure 178/94 10/12/20 15:21 Pulse Oximetry 96 10/12/20 15:21 MDM - Chest Pain MDM Narrative: Medical decision making narrative: This patient is a 44-year-old female who presents to the emergency department from Dr. Reyna's office. She reportedly was cut advised to come to the hospital due to questionable EKG. Patient does have a long history of cardiac issues and hypertension and has been intermittently noncompliant with blood pressure medications due to cost. Patient's blood pressure at this time is 160 systolic. Patient denies any cardiac symptoms. Will do medical evaluation treat as needed. Negative evaluation in the emergency department for any acute cardiac findings. Patient does have chronic hypertension takes multiple global medications. Patient states she admittedly has not been fully compliant on all medications for blood pressure. Patient has negative EKGs here negative troponins. Patient does have an elevated proBNP most likely related to her hypertension. Patient currently is prescribed Lasix that she will continue this medication. Patient is to keep a blood pressure log try to take all medications as prescribed and follow-up with her PCP in 3 to 5 days. Lab Data: Labs: Lab Results 10/12/20 10/12/20 10/12/20 Range/Units 14:24 14:24 14:24 WBC 10.2 H (4.0-10.0) 10^3/ uL RBC 5.01 (4.1-5.3) 10^6/u L Hgb 15.1 (11.5-15.3) g/dL Hct 46.3 (37.0-47.0) % MCV 92.4 (81-99) fL MCH 30.1 (28.0-34.0) pg MCHC 32.6 (30.0-36.0) g/dL RDW 14.9 (12.1-15.1) % Plt Count 168 (130-400) 10^3/c mm MPV 13.2 H (7.4-10.4) fL Neut % (Auto) 64.4 % Lymph % (Auto) 26.5 % Falls % (Auto) 5.8 % Eos % (Auto) 2.1 % Baso % (Auto) 0.5 % Neut # (Auto) 6.57 (1.8-7.7) 10^3/u L Lymph # (Auto) 2.7 (0.8-4.8) 10^3/u L Falls # (Auto) 0.6 (0.2-0.9) 10^3/u L Eos # (Auto) 0.2 (0.0-0.8) 10^3/u L Baso # (Auto) 0.1 (0.0-0.1) 10^3/u L Nucleated RBC % (a uto) 0 % Nucleated RBCs # 0.0 /100WBC PT Cancelled INR Cancelled APTT Cancelled Sodium Cancelled Potassium Cancelled Chloride Cancelled Carbon Dioxide Cancelled Anion Gap Cancelled BUN Cancelled Creatinine Cancelled GFR Calculation Cancelled Glucose Cancelled Calculated Osmolal ity Cancelled Calcium Cancelled Total Bilirubin Cancelled AST Cancelled ALT Cancelled Alkaline Phosphata se Cancelled Creatine Kinase Cancelled Troponin T Baselin e NT-Pro-B Natriuret Pep Cancelled Total Protein Cancelled Albumin Cancelled Globulin Cancelled Urine Color (Yellow) Urine Appearance (CLEAR) Urine pH (5-7) Ur Specific Gravit y (1.005-1.030) Urine Protein (Negative) Urine Glucose (UA) (Normal) Urine Ketones (Negative) Urine Blood (Negative) Urine Nitrate (Negative) Urine Bilirubin (Negative) Urine Urobilinogen (Negative) mg/dL Ur Leukocyte Rajani ase (Negative) Urine RBC (0-2) /hpf Urine WBC (0-5) /hpf Ur Squamous Epith Cells (0-5) /hpf Amorphous Sediment Urine Bacteria (NONE) /hpf Urine Opiates Scre en (Negative) ng/mL Ur Barbiturates Sc reen (Negative) ng/mL Ur Phencyclidine S crn (Negative) ng/mL Ur Amphetamines Sc reen (Negative) ng/mL U Benzodiazepines Scrn (Negative) ng/mL Urine Cocaine Scre en (Negative) ng/mL U Marijuana (THC) Screen (Negative) ng/mL 10/12/20 10/12/20 10/12/20 Range/Units 14:24 14:37 14:37 WBC (4.0-10.0) 10^3/ uL RBC (4.1-5.3) 10^6/u L Hgb (11.5-15.3) g/dL Hct (37.0-47.0) % MCV (81-99) fL MCH (28.0-34.0) pg MCHC (30.0-36.0) g/dL RDW (12.1-15.1) % Plt Count (130-400) 10^3/c mm MPV (7.4-10.4) fL Neut % (Auto) % Lymph % (Auto) % Falls % (Auto) % Eos % (Auto) % Baso % (Auto) % Neut # (Auto) (1.8-7.7) 10^3/u L Lymph # (Auto) (0.8-4.8) 10^3/u L Falls # (Auto) (0.2-0.9) 10^3/u L Eos # (Auto) (0.0-0.8) 10^3/u L Baso # (Auto) (0.0-0.1) 10^3/u L Nucleated RBC % (a uto) % Nucleated RBCs # /100WBC PT INR APTT Sodium Potassium Chloride Carbon Dioxide Anion Gap BUN Creatinine GFR Calculation Glucose Calculated Osmolal ity Calcium Total Bilirubin AST ALT Alkaline Phosphata se Creatine Kinase Troponin T Baselin e Cancelled NT-Pro-B Natriuret Pep Total Protein Albumin Globulin Urine Color Yellow (Yellow) Urine Appearance Clear (CLEAR) Urine pH 5 (5-7) Ur Specific Gravit y 1.015 (1.005-1.030) Urine Protein Trace (Negative) Urine Glucose (UA) Norm (Normal) Urine Ketones Negative (Negative) Urine Blood 2+ H (Negative) Urine Nitrate Negative (Negative) Urine Bilirubin Neg (Negative) Urine Urobilinogen Norm (Negative) mg/dL Ur Leukocyte Rajani ase Negative (Negative) Urine RBC 0-4 H (0-2) /hpf Urine WBC 0-4 H (0-5) /hpf Ur Squamous Epith Cells 0-4 H (0-5) /hpf Amorphous Sediment Not Reportable Urine Bacteria 1+ H (NONE) /hpf Urine Opiates Scre en Negative (Negative) ng/mL Ur Barbiturates Sc reen Negative (Negative) ng/mL Ur Phencyclidine S crn Negative (Negative) ng/mL Ur Amphetamines Sc reen Negative (Negative) ng/mL U Benzodiazepines Scrn Negative (Negative) ng/mL Urine Cocaine Scre en Negative (Negative) ng/mL U Marijuana (THC) Screen Negative (Negative) ng/mL 10/12/20 10/12/20 10/12/20 Range/Units 14:45 14:45 14:45 WBC (4.0-10.0) 10^3/ uL RBC (4.1-5.3) 10^6/u L Hgb (11.5-15.3) g/dL Hct (37.0-47.0) % MCV (81-99) fL MCH (28.0-34.0) pg MCHC (30.0-36.0) g/dL RDW (12.1-15.1) % Plt Count (130-400) 10^3/c mm MPV (7.4-10.4) fL Neut % (Auto) % Lymph % (Auto) % Falls % (Auto) % Eos % (Auto) % Baso % (Auto) % Neut # (Auto) (1.8-7.7) 10^3/u L Lymph # (Auto) (0.8-4.8) 10^3/u L Falls # (Auto) (0.2-0.9) 10^3/u L Eos # (Auto) (0.0-0.8) 10^3/u L Baso # (Auto) (0.0-0.1) 10^3/u L Nucleated RBC % (a uto) % Nucleated RBCs # /100WBC PT 12.60 INR 0.91 APTT 30.4 Sodium 136 Potassium 4.4 Chloride 103 Carbon Dioxide 22 Anion Gap 15.4 BUN 20 Creatinine 1.1 H GFR Calculation 53.5 L Glucose 89 Calculated Osmolal ity 284 L Calcium 8.8 Total Bilirubin 0.2 AST 14 ALT 11 Alkaline Phosphata se 77 Creatine Kinase 85 Troponin T Baselin e 6 NT-Pro-B Natriuret Pep 2368 H Total Protein 7.1 Albumin 4.1 Globulin 3.0 Urine Color (Yellow) Urine Appearance (CLEAR) Urine pH (5-7) Ur Specific Gravit y (1.005-1.030) Urine Protein (Negative) Urine Glucose (UA) (Normal) Urine Ketones (Negative) Urine Blood (Negative) Urine Nitrate (Negative) Urine Bilirubin (Negative) Urine Urobilinogen (Negative) mg/dL Ur Leukocyte Rajani ase (Negative) Urine RBC (0-2) /hpf Urine WBC (0-5) /hpf Ur Squamous Epith Cells (0-5) /hpf Amorphous Sediment Urine Bacteria (NONE) /hpf Urine Opiates Scre en (Negative) ng/mL Ur Barbiturates Sc reen (Negative) ng/mL Ur Phencyclidine S crn (Negative) ng/mL Ur Amphetamines Sc reen (Negative) ng/mL U Benzodiazepines Scrn (Negative) ng/mL Urine Cocaine Scre en (Negative) ng/mL U Marijuana (THC) Screen (Negative) ng/mL Imaging Data^: CXR: Attestation: I personally reviewed and interpreted this imaging study as follows: Radiologist's impression: IMPRESSION: 1. No acute cardiopulmonary finding. EKG Data^: EKG 1: Attestation: I personally reviewed and interpreted this EKG as follows: EKG interpretation date: 10/12/20 EKG interpretation time: 13:42 Prior EKG tracings: available for review Interpretation: Sinus rhythm heart rate 63 nonspecific EKG changes in the lateral leads patient has no chest pain. Discharge Plan Discharge Patient Disposition: Home Clinical Impression: Hypertension, Hx of past noncompliance Condition: Stable Prescriptions: No Action alprazolam 0.5 mg tablet 0.5 mg PO BID PRN (Reason: anxiety) 30 Days Qty: 60 RF: 0 amlodipine 10 mg tablet 10 mg PO DAILY 90 Days Qty: 90 RF: 1 aspirin 81 mg tablet,delayed release (DR/EC) 81 mg PO DAILY 90 Days Qty: 90 RF: 1 atorvastatin 40 mg tablet 40 mg PO DAILY 90 Days Qty: 90 RF: 1 carvedilol [Coreg] 3.125 mg tablet 3.125 mg PO BID 90 Days Qty: 180 RF: 1 chlorthalidone 25 mg tablet 25 mg PO DAILY 90 Days Qty: 90 RF: 1 Lasix 20 mg tablet 20 mg PO DAILY 90 Days Qty: 90 RF: 1 citalopram [Celexa] 10 mg tablet 10 mg PO DAILY 90 Days Qty: 90 RF: 1 lisinopril 20 mg tablet 20 mg PO BID 90 Days Qty: 180 RF: 1 pantoprazole [Protonix] 40 mg tablet,delayed release (DR/EC) 40 mg PO DAILY 30 Days Qty: 30 RF: 0 nitroglycerin [Nitrostat] 0.4 mg tablet, sublingual 0.4 mg SUBLINGUAL Q5M PRN (Reason: chest pain) 3 Days Qty: 3 RF: 0 Discharge Orders: Discharge ED (Routine); Ordered 10/12/20 Ordered By: Humberto Elliott Referrals: Andrae Menendez MD [Primary Care Provider] - Discharge Diet: Low Salt Discharge Activity: Resume usual activity Patient Instructions: Opioid Safety Activity Restrictions/Additional Instructions: Maintain compliance with your prescriptions for hypertension. Low-salt diet. Follow-up with PCP in 3 to 5 days. Keep a blood pressure log as discussed and follow-up with PCP. 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
[2020-10-12 14:18] VITALS: BP 191/99; PULSE 70; RESP 19; O2SAT 98
[2020-10-12 14:34] LABS: Basophils # 0.1 10^3/uL (0.0-0.1); Basophils % 0.5 %; Eosinophils # 0.2 10^3/uL (0.0-0.8); Eosinophils % 2.1 %; Hematocrit 46.3 % (37.0-47.0); Hemoglobin 15.1 g/dL (11.5-15.3); Lymphocytes # 2.7 10^3/uL (0.8-4.8); Lymphocytes % 26.5 %; Mean Corpuscular HGB Conc 32.6 g/dL (30.0-36.0); Mean Corpuscular Hemoglobin 30.1 pg (28.0-34.0); Mean Corpuscular Volume 92.4 fL (81-99); Mean Platelet Volume 13.2 fL (7.4-10.4); Monocytes # 0.6 10^3/uL (0.2-0.9); Monocytes % 5.8 %; Neutrophils # 6.57 10^3/uL (1.8-7.7); Neutrophils % 64.4 %; Nucleated Red Blood Cells % 0 %; Platelet Count 168 10^3/cmm (130-400); Red Blood Count 5.01 10^6/uL (4.1-5.3); Red Cell Distribution Width 14.9 % (12.1-15.1); White Blood Count 10.2 10^3/uL (4.0-10.0)
[2020-10-12 14:46] LABS: Add Urine Microscopic? YES; Bilirubin Urine Neg (Negative); Blood Urine 2+ (Negative); Glucose Urine UA Norm (Normal); Ketones Urine Negative (Negative); Leukocyte Esterase Urine Negative (Negative); Nitrate Urine Negative (Negative); Protein Urine Trace (Negative); Specific Gravity, Urine 1.015 (1.005-1.030); Urine Appearance Clear (CLEAR); Urine Color Yellow (Yellow); Urobilinogen Urine Norm (Negative); pH Urine 5 (5-7)
[2020-10-12 14:53] LABS: Bacteria Urine 1+ /hpf; Squamous Epithelial Cell Urine 0-4 /hpf (0-5)
[2020-10-12 14:54] LABS: RBC Urine 0-4 /hpf (0-2)
[2020-10-12 14:55] LABS: Add Urine Culture? No; WBC Urine 0-4 /hpf (0-5)
[2020-10-12 15:02] LABS: Amphetamines Screen Urine Negative (Negative); Barbiturates Screen Urine Negative (Negative); Benzodiazepines Screen Urine Negative (Negative); Cocaine Screen Urine Negative (Negative); Opiate Screen Urine Negative (Negative); PCP Screen Urine Negative (Negative); THC Screen Urine Negative (Negative)
[2020-10-12 15:09] LABS: INR 0.91 (0.8-1.2)
[2020-10-12 15:10] LABS: Partial Thromboplastin Time 30.4 SECONDS (23.9-36.7)
[2020-10-12 15:21] VITALS: BP 178/94; PULSE 58; RESP 20; O2SAT 96
[2020-10-12 15:28] LABS: Alanine Aminotransferase 11 U/L (0-33); Albumin Level 4.1 g/dL (3.5-5.2); Alkaline Phosphatase 77 IU/L (35-105); Anion Gap 15.4 (5-19); Aspartate Amino Transferase 14 U/L (0-32); Blood Urea Nitrogen 20 mg/dL (6-20); Calcium 8.8 mg/dL (8.5-10.5); Carbon Dioxide 22 mmol/L (22-29); Chloride 103 mmol/L (98-107); Creatine Phosphokinase 85 U/L (26-192); Creatinine Clr Calc Pharmacy 63.8611; Glomerular Filtration Rate 53.5 mL/min (90-130); Glucose 89 mg/dL (65-115); NT Pro B Type Natriuretic Pept 2368 pg/mL (0-125); Osmolality Calculated 284 mOsm/kg (285-295); Potassium 4.4 mmol/L (3.5-5.1); Sodium 136 mmol/L (136-145); Total Bilirubin 0.2 mg/dL (0.15-1.2); Total Protein 7.1 g/dL (6.6-8.7)
[2020-10-12 15:50] LABS: Troponin(5th) Baseline 6 ng/L (0-10)
--- NOTE | 2020-10-12 16:00 | ECG_ITS ---
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 Measurements Intervals [place] Rate: 57 P: 46 GA: 163 QRS: 62 QRSD: 93 T: 159 QT: 454 QTc: 442 Interpretive Statements SINUS BRADYCARDIA POSSIBLE LEFT ATRIAL ENLARGEMENT [-0.1mV P WAVE IN V1/V2] ST DEVIATION AND MARKED T-WAVE ABNORMALITY, CONSIDER LATERAL ISCHEMIA [-0.5+ mV T WAVE IN I/aVL/V5/V6] Compared to ECG 10/12/2020 13:42:03 Sinus rhythm no longer present T-wave abnormality still present Possible ischemia still present Electronically Signed On 10-12-2020 16:19:11 CDT by Paulo Magana M.D. [id number]
[2020-10-12 16:24] VITALS: BP 155/81; PULSE 59; RESP 22; O2SAT 98
--- NOTE | 2020-10-12 20:00 | ECG_ITS ---
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 Measurements Intervals [place] Rate: 63 P: 56 [place]: 158 QRS: 69 QRSD: 95 T: 166 QT: 395 QTc: 407 Interpretive Statements SINUS RHYTHM ST DEVIATION AND MODERATE T-WAVE ABNORMALITY, CONSIDER LATERAL ISCHEMIA [-0.1+ mV T WAVE IN I/aVL/V5/V6] Compared to ECG 01/14/2020 20:50:58 T-wave abnormality now present Possible ischemia now present Left ventricular hypertrophy no longer present ST (T wave) deviation no longer present Electronically Signed On 10-12-2020 16:19:48 CDT by Paulo Magana M.D. [id number]
== END 2020-10-12 16:24 | disposition home or self-care (01) ==
PROVIDERS: Emergency Provider Emergency Medicine; PCP Family Medicine
DX: I10 Essential (primary) hypertension (principal); Z91.14 Patient's other noncompliance with medication regimen; F17.210 Nicotine dependence, cigarettes, uncomplicated
CPT/HCPCS: 71045; 80053; 80306; 81001; 82550; 83880; 84484; 85025; 85610; 85730; 93005; 99284

== ENCOUNTER → 2020-12-23 15:55 | Outpatient (BNVA) | payer SELFPAY | PROVIDERS: PCP Family Medicine; Visit Provider Nurse Practitioner Family | DX: I10 Essential (primary) hypertension (principal); E78.2 Mixed hyperlipidemia; E55.9 Vitamin D deficiency, unspecified; Z79.899 Other long term (current) drug therapy; N39.0 Urinary tract infection, site not specified; M54.9 Dorsalgia, unspecified | CPT/HCPCS: 80053; 80061; 81003; 82043; 82306; 83036; 83735; 84100; 84443; 85025; 87077; 87086; 87184 ==

== ENCOUNTER 2020-12-31 10:13 | Outpatient (CLI) | payer SELFPAY ==
--- NOTE | 2020-12-31 10:26 | XR_ITS ---
WS: [id number] Lumbar spine, AP, L5-S1 spot, both obliques, lateral views in flexion, extension and neutral position , 12/31/2020 Clinical Data: M54.9 - Dorsalgia, unspecified Comparison: None. Findings: No compression fractures are seen. There is degenerative disc narrowing at L5-S1 without subluxation of L5 on S1 of 1.5 cm. There is mild osteoarthritic spurring of the L1-L4 vertebral bodies.. The mcdermott sverse processes and SI joints are normal. The oblique films show bilateral L5-S1 spondylolysis. On flexion and extension there is no limitation of motion or change in the subluxation. There is a large amount of fecal material within the colon. There is calcification in the wall of the abdominal aorta but no aneurysm. XR/XR lumbar spine 6V w f/e [id number] Impression: 1. Bilateral L5-S1 spondylolysis with spondylolisthesis. 2. 1.5 cm anterior subluxation of L5 on S1 with degenerative disc obliteration. 3. Mild osteoarthritic spurring at L1-L4. 4. On flexion and extension there is no limitation of motion or change in the s ubluxation.
== END 2020-12-31 10:14 | disposition home or self-care (01) ==
LOC: RAD 10:24
PROVIDERS: PCP Family Medicine; Visit Provider Nurse Practitioner Family
DX: M47.817 Spondylosis without myelopathy or radiculopathy, lumbosacral region (principal); M43.16 Spondylolisthesis, lumbar region; S33.39XA Dislocation of other parts of lumbar spine and pelvis, initial encounter; X58.XXXA Exposure to other specified factors, initial encounter
CPT/HCPCS: 72114

== ENCOUNTER 2021-09-16 21:46 | Observation (INO) | payer SELFPAY ==
--- NOTE | 2021-09-16 21:48 | ECG_ITS ---
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 Measurements Intervals [place] Rate: 66 P: 60 [place]: 170 QRS: 69 QRSD: 92 T: 143 QT: 400 QTc: 422 Interpretive Statements SINUS RHYTHM ST DEVIATION AND MODERATE T-WAVE ABNORMALITY, CONSIDER LATERAL ISCHEMIA [-0.1+ mV T-WAVE IN I/aVL/V5/V6] Compared to ECG 10/12/2020 15:32:29 Sinus bradycardia no longer present T-wave abnormality still present Possible ischemia still present Electronically Signed On 09-16-2021 23:50:38 CDT by Paulo Magana M.D. [id number]
--- NOTE | 2021-09-16 21:48 | XRR_ITS ---
PROCEDURE INFORMATION: Exam: XR Chest Exam date and time: 09/16/2021 10:24 PM Age: 45 years old Clinical indication: Pain; Chest pressure; Patient HX: C/O transient chest tightness for the last week. ; Additional info: Cp TECHNIQUE: Imaging protocol: XR of the chest. Views: 1 view. COMPARISON: CR XR chest 1V portable [id number] 10/12/2020 2:11 PM FINDINGS: Lungs: Unremarkable. No consolidation. Pleural spaces: Unremarkable. No pleural effusion. No pneumothorax. Heart/Mediastinum: Unremarkable. No cardiomegaly. Bones/joints: Unremarkable. XR/XR chest 1V portable [id number] IMPRESSION: No acute findings.
[2021-09-16 21:58] VITALS: BP 188/86; PULSE 73; RESP 14; TEMP 36.5; O2SAT 97; BMI 27.6
[2021-09-16 22:35] VITALS: BP 127/73; PULSE 65; RESP 20; O2SAT 96
[2021-09-16] MEDS: aspirin 81 mg Chew Tablet 324 MG PO (22:35)
[2021-09-16 22:47] LABS: Basophils % 0.4 %; Eosinophils # 0.3 10^3/uL (0.0-0.8); Eosinophils % 2.5 %; Hematocrit 40.9 % (37.0-47.0); Hemoglobin 13.2 g/dL (11.5-15.3); Lymphocytes # 3.2 10^3/uL (0.8-4.8); Lymphocytes % 29.9 %; Mean Corpuscular HGB Conc 32.3 g/dL (30.0-36.0); Mean Corpuscular Hemoglobin 30.2 pg (28.0-34.0); Mean Corpuscular Volume 93.6 fl (81-99); Mean Platelet Volume 13.3 fL (7.4-10.4); Monocytes # 0.8 10^3/uL (0.2-0.9); Monocytes % 7.9 %; Neutrophils # 6.24 10^3/uL (1.8-7.7); Neutrophils % 58.9 %; Nucleated Red Blood Cells % 0 %; Platelet Count 174 10^3/cmm (130-400); Red Blood Count 4.37 10^6/uL (4.1-5.3); Red Cell Distribution Width 14.6 % (12.1-15.1); White Blood Count 10.6 10^3/uL (4.0-10.0)
[2021-09-16 23:05] VITALS: BP 139/89; PULSE 59; RESP 18; O2SAT 98
--- NOTE | 2021-09-16 23:07 | ED_ITS ---
HPI - Chest Pain General: Chief Complaint: Chest Pain Stated Complaint: cp Time Seen by Provider: 09/16/21 22:11 Source: patient Mode of arrival: ambulatory Limitations: no limitations History of Present Illness: 45-year-old female states she has had chronic chest pain for years check she had an abnormal stress test 2 years ago but declined angiography at that time. She states that over the last 3 to 4 days she is actually been having increased pain has been a bandlike pain across her chest with some dyspnea. She is seen at [facility] who sent her here for her pain states she is pain-free now she denies any worsening proving factors denies any vomiting or diarrhea. Associated symptoms: Deny abdominal pain, dyspnea, fever(s), nausea or vomiting Review of Systems Const: Denies: fever(s), chills, body aches or change in appetite Eyes: Denies: blurry vision or eye discomfort ENMT: Denies: throat pain or dental pain Card: Reports: chest pain Resp: Denies: dyspnea GI: Denies: abdominal pain, nausea, vomiting or diarrhea : Denies: dysuria Musc: Denies: neck pain or back pain Skin/Breast: Denies: rash Neuro: Denies: headache(s) Psych: Denies: depression Matias/Lymph: Denies: easy bruising All/Imm: Denies: urticaria PFSH ED PFSH: Medical History Back Pain Current smoker Essential hypertension Medication management Mixed hyperlipidemia Vitamin D deficiency Surgical History No pertinent past surgical history Family History Mother CAD (coronary artery disease) Grandmother CAD (coronary artery disease) Social History Smoking and tobacco status: current every day smoker Alcohol intake: never Female Reproductive History: Date of last menstrual period: 12/31/19 Physical Exam Const: COMMON NORMALS: no acute distress, patient oriented x3 and healthy appearing HENMT: COMMON NORMALS: normocephalic and atraumatic HEAD & SCALP: normocephalic and atraumatic Eye: COMMON NORMALS: Equal, round and reactive pupils present and EOMs intact bilaterally PUPIL: Yes Equal, round and reactive pupils present Neck/C-Spine: COMMON NORMALS: full ROM and supple Chest: COMMONS NORMALS: normal inspection of the chest and normal palpation of entire chest wall Resp: COMMON NORMALS: normal respiratory effort, No retractions, No use of accessory muscles and clear to auscultation bilaterally AUSCULTATION: clear to auscultation bilaterally Cardio: COMMON NORMALS: regular rate, regular rhythm and No murmurs present (Cardio) RATE: regular rate RHYTHM: regular rhythm GI: COMMON NORMALS: Normal to inspection, nondistended, normoactive bowel sounds present, Soft to palpation, non-tender and no masses PALPATION: Yes Soft to palpation Extremity: COMMON NORMALS: normal to inspection and full ROM Neuro: COMMON NORMALS: patient oriented x3, moves all extremities and no focal motor deficits Psych: COMMON NORMALS: mental status grossly normal, Normal thought process present and cooperative THOUGHT PROCESS: Normal thought process present Skin: COMMON NORMALS: no rashes or lesions noted and no wounds GENERAL SKIN EXAM: no rashes or lesions noted Course Vital Signs: Vital signs: Vital Signs Temperature 97.7 F 09/16/21 21:58 Pulse Rate 73 09/16/21 21:58 Respiratory Rate 14 09/16/21 21:58 Blood Pressure 188/86 09/16/21 21:58 Pulse Oximetry 97 09/16/21 21:58 MDM - Chest Pain Medical Decision Making Patient presents here with chest pain patient's troponin initially here is normal she has had an abnormal stress test in the past will admit for observation. Lab Data : 09/16/21 22:28 09/16/21 22:28 Radiology Impressions Chest X-Ray 09/16/21 21:48 IMPRESSION: No acute findings. Laboratory Results WBC 10.6 10^3/uL (4.0-10.0) H 09/16/21 22:28 RBC 4.37 10^6/uL (4.1-5.3) 09/16/21 22:28 Hgb 13.2 g/dL (11.5-15.3) 09/16/21 22:28 Hct 40.9 % (37.0-47.0) 09/16/21 22:28 MCV 93.6 fl (81-99) 09/16/21 22:28 MCH 30.2 pg (28.0-34.0) 09/16/21: MCHC 32.3 g/dL (30.0-36.0) 09/16/21: RDW 14.6 % (12.1-15.1) 09/16/21: Plt Count 174 10^3/cmm (130-400) 09/16/21: MPV 13.3 fL (7.4-10.4) H 09/16/21: Neut % (Auto) 58.9 % 09/16/21: Lymph % (Auto) 29.9 % 09/16/21: [place] % (Auto) 7.9 % 09/16/21: Eos % (Auto) 2.5 % 09/16/21 Baso % (Auto) 0.4 % 09/16/21: Neut # (Auto) 6.24 10^3/uL (1.8-7.7) 09/16/21 Lymph # (Auto) 3.2 10^3/uL (0.8-4.8) 09/16/21: [place] # (Auto) 0.8 10^3/uL (0.2-0.9) 09/16/21 Eos # (Auto) 0.3 10^3/uL (0.0-0.8) 09/16/21: Baso # (Auto) 0.0 10^3/uL (0.0-0.1) 09/16/21 Nucleated RBC % (auto) 0 % 09/16/21 Nucleated RBCs # 0.0 /100WBC 09/16/21: Sodium 137 mmol/L (136-145) 09/16/21: Potassium 4.4 mmol/L (3.5-5.1) 09/16/21: Chloride 104 mmol/L (98-107) 09/16/21: Carbon Dioxide 23 mmol/L (22-29) 09/16/21: Anion Gap 14.4 (5-19) 09/16/21: BUN 33 mg/dL (6-20) H 04/28/22 22:28 Creatinine 1.5 mg/dL (0.5-0.9) H 09/16/21 22: GFR Calculation 37.2 mL/min (90-130) L 09/16/21 22: Glucose 109 mg/dL (65-115) 09/16/21 22: Calculated Osmolality 292 mOsm/kg (285-295) 09/16/21 22: Calcium 9.1 mg/dL (8.5-10.5) 09/16/21 22: Total Bilirubin 0.2 mg/dL (0.15-1.2) 09/16/21 22: AST 17 U/L (0-32) 09/16/21 22: ALT 14 U/L (0-33) 09/16/21 22: Alkaline Phosphatase 99 IU/L (35-105) 09/16/21 22: Troponin T Baseline 12 ng/L (0-10) H 09/16/21 22:28 Total Protein 7.3 g/dL (6.6-8.7) 09/16/21 22: Albumin 4.3 g/dL (3.5-5.2) 09/16/21 22: Globulin 3.0 g/dL (1.3-4.6) 09/16/21 22: EKG Data EKG 1: I personally reviewed and interpreted this EKG as follows: EKG interpretation date: 09/16/21 EKG interpretation time: 21:57 Interpretation: nsr hr [address] or t wave abnormalities no st elevation st depression chronic qrs 92 qtc 414 Discharge Plan Discharge Patient Disposition: Admitted As Inpatient Clinical Impression: Chest pain Condition: Stable Coding Level of Care Code 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
[2021-09-16 23:08] LABS: Alanine Aminotransferase 14 U/L (0-33); Albumin Level 4.3 g/dL (3.5-5.2); Alkaline Phosphatase 99 IU/L (35-105); Anion Gap 14.4 (5-19); Aspartate Amino Transferase 17 U/L (0-32); Blood Urea Nitrogen 33 mg/dL (6-20); Calcium 9.1 mg/dL (8.5-10.5); Carbon Dioxide 23 mmol/L (22-29); Chloride 104 mmol/L (98-107); Glomerular Filtration Rate 37.2 mL/min (90-130); Glucose 109 mg/dL (65-115); Osmolality Calculated 292 mOsm/kg (285-295); Potassium 4.4 mmol/L (3.5-5.1); Sodium 137 mmol/L (136-145); Total Bilirubin 0.2 mg/dL (0.15-1.2); Total Protein 7.3 g/dL (6.6-8.7)
[2021-09-16 23:23] LABS: Troponin(5th) Baseline 12 ng/L (0-10)
[2021-09-16 23:29] LABS: Slide Review Slide Review Perform
[2021-09-16 23:30] VITALS: BP 130/77; PULSE 67; RESP 15; O2SAT 94
[2021-09-17] VITALS (13 sets, daily range): BP systolic 106–159; BP diastolic 66–95; PULSE 52–66; RESP 16–20; TEMP 36.4–36.7; O2SAT 94–98
--- NOTE | 2021-09-17 01:40 | USCV_ITS ---
Imelda Cabezas Age: 45 Gender: F : 1975 Exam Date: 09/17/2021 02:43 Ordering Phys: Harleen Keane MD Technologist: EFRA [place] [facility] [place]: chest pain/abnormal ekg BP: 129 / 77 HR: 54 Rhythm: Sinus Technical Quality: Adequate MEASUREMENTS (Male / Female) Normal Values 2D ECHO LV Diastolic Diameter PLAX 3.6 cm 4.2 - 5.9 / 3.9 - 5.3 cm LV Systolic Diameter PLAX 2.2 cm IVS Diastolic Thickness 1.6 cm 0.6 - 1.0 / 0.6 - 0.9 cm IVS Systolic Thickness 2.5 cm LVPW Diastolic Thickness 1.9 cm 0.6 - 1.0 / 0.6 - 0.9 cm LVPW Systolic Thickness 2.0 cm LV Ejection Fraction 2D Teich 71.7 % LV Ejection Fraction MOD 2C 70.2 % LV Ejection Fraction 2C AL 69.8 % LA Diameter 3.6 cm LA Width 3.8 cm LA Height 5.1 cm RA Width 4.8 cm RA Height 2.9 cm M-MODE Aortic Annulus Diameter 2.5 cm LA Ao Ratio MM 1.5 MV E Point Septal Separation 0.3 cm DOPPLER AV Peak Velocity 147.0 cm/s LVOT Peak Velocity 108.0 cm/s MV Peak Velocity 89.0 cm/s MV Area PHT 3.5 cm squared Mitral E to A Ratio 1.1 MV E' Velocity 46.5 cm/s Mitral E to MV E' Ratio 11.8 Mitral E to LV E' Lateral Ratio 9.3 Mitral E to LV E' Septal Ratio 16.4 TR Peak Velocity 225.8 cm/s TR Peak Gradient 20.4 mmHg TR Mean Velocity 190.1 cm/s TR Mean Gradient 15.6 mmHg TR Velocity Time Integral 79.2 cm Right Atrial Pressure 10.0 mmHg Pulmonary Artery Systolic Pressu 30.4 mmHg PV Peak Velocity 89.0 cm/s RV Acceleration Time 0.2 s RV Ejection Time 0.4 s RV AcT/ET 0.4 FINDINGS Left Ventricle Normal left ventricular cavity size and systolic function. Moderately increased left ventricular wall thickness. Mild concentric left ventricular hypertrophy. Left ventricular ejection fraction is estimated at 65 %. No regional wall motion abnormalities. Grade II diastolic dysfunction, moderately elevated filling pressures. Right Ventricle Normal right ventricular size and systolic function. Right ventricular systolic pressure 34 mmHg. Right Atrium Normal right atrial size. Right atrial pressure estimated at 8 mmHg. Left Atrium Mildly increased left atrial size. Mitral Valve Mildly thickened mitral valve. No mitral valve stenosis. No significant mitral valve regurgitation. Aortic Valve Aortic valve not well visualized. No aortic valve stenosis. Mild aortic valve regurgitation. Tricuspid Valve Structurally normal tricuspid valve. No tricuspid valve stenosis. Trace tricuspid valve regurgitation. Pulmonic Valve Pulmonic valve not well visualized. No pulmonary valve stenosis. No pulmonary valve regurgitation. Pericardium No pericardial effusion. Aorta Normal-sized inferior vena cava with less than 50% respiratory variation. CONCLUSIONS 1. Normal left ventricular cavity size and systolic function. Moderate concentric left ventricular hypertrophy. Left ventricular ejection fraction is estimated at 65 %. No regional wall motion abnormalities. Grade II diastolic dysfunction, moderately elevated filling pressures. 2. Normal right ventricular size and systolic function. 3. Mildly increased left atrial size. 4. Mild aortic valve regurgitation. 5. Upper normal pulmonary artery pressure. 5. When compared to previous echocardiogram dated 01/15/2020, there may not have been any significant change. Cindi Velázquez MD (Electronically Signed) Final Date: 17 September 2021 11:18 S
[2021-09-17 01:50] LABS: Troponin 5 2HR 11.66 ng/L (0-10)
[2021-09-17 01:51] LABS: Troponin 5 2HR Delta -0.34 ABS# (0-10)
--- NOTE | 2021-09-17 02:55 | PM.HP ---
Providers/Chief Complaint Admitting Physician: Harleen Keane MD Primary Care Provider: Andrae Menendez MD Chief Complaint: cp History of Present Illness Imelda Cabezas is a 45 year old female with h/o HTN, CHF, hypertensive nephropathy who was sent from her PCP clinic after being seen for c/o chest pain. Patient has had chest pain/pressure for a week. Location mid sternal, non radiating. She ran out of her SL nitro. She had some dyspnea as well. She had a positive stress test 01/09/20 however declined cardiac intervention. She has been medically managed on aspirin, statin and coreg. Evaluation in ED is fairly unremarkable. She is chest pain free. Troponin x 2 not elevated. EKG with non specific ST changes Review of Systems General: Reports: 10 or more systems reviewed and unremarkable except in HPI and below Const: Denies: fever(s), chills, body aches or fatigue Eyes: Denies: change in vision ENMT: Denies: throat pain or hoarseness Card: Reports: chest pain; Denies: palpitations, irregular heart rhythm or edema Resp: Reports: dyspnea and non-productive cough; Denies: productive cough or wheezing GI: Denies: abdominal pain, nausea, vomiting, diarrhea or constipation Musc: Denies: neck pain, back pain or joint swelling Skin/Breast: Denies: rash or pruritus Neuro: Denies: headache(s), numbness in extremities or weakness in extremities Medications/Allergies Home Medications Medication Instructions Recorded Confirmed Last Taken Type cyclobenzaprine 5 mg tablet 5 mg PO TID PRN 15 Days #45 tab 01/04/21 09/16/21 Unknown Rx polyethylene glycol 3350 17 gram 17 g PO DAILY 30 Days #30 ea 01/04/21 09/16/21 Unknown Rx oral powder packet (Miralax) alprazolam 0.5 mg tablet 0.5 mg PO BID PRN 30 Days #60 tab 09/16/21 09/16/21 Unknown Rx amlodipine 10 mg tablet 10 mg PO DAILY 90 Days #90 tab 09/16/21 09/16/21 Unknown Rx aspirin 81 mg tablet,delayed 81 mg PO DAILY 90 Days #90 tab 09/16/21 09/16/21 Unknown Rx release atorvastatin 40 mg tablet 40 mg PO DAILY 90 Days #90 tab 09/16/21 09/16/21 Unknown Rx carvedilol 3.125 mg tablet (Coreg) 3.125 mg PO BID 90 Days #180 tab 09/16/21 09/16/21 Unknown Rx chlorthalidone 25 mg tablet 25 mg PO DAILY 90 Days #90 tab 09/16/21 09/16/21 Unknown Rx citalopram 10 mg tablet (Celexa) 10 mg PO DAILY 90 Days #90 tab 09/16/21 09/16/21 Unknown Rx furosemide 20 mg tablet (Lasix) 20 mg PO DAILY 90 Days #90 tab 09/16/21 09/16/21 Unknown Rx lisinopril 20 mg tablet 20 mg PO BID 90 Days #180 tab 09/16/21 09/16/21 Unknown Rx nitroglycerin 0.4 mg sublingual 0.4 mg SUBLINGUAL Q5M PRN 3 Days 09/16/21 09/16/21 Unknown Rx tablet (Nitrostat) #3 tab pantoprazole 40 mg tablet,delayed 40 mg PO DAILY 30 Days #30 tab 09/16/21 09/16/21 Unknown Rx release (Protonix) Allergies Allergy/AdvReac Type Severity Reaction Status Date / Time No Known Allergies Allergy Verified 09/16/21 09:58 PFSH Acute PFSH: Medical History Back Pain Current smoker Essential hypertension Medication management Mixed hyperlipidemia Vitamin D deficiency Surgical History No pertinent past surgical history Family History Mother CAD (coronary artery disease) Grandmother CAD (coronary artery disease) Social History Smoking and tobacco status: current every day smoker Alcohol intake: never Female Reproductive History: Date of last menstrual period: 12/31/19 Vitals/I&O/Wt Last Vital Signs Temp 97.7 F 09/17/21 02:33 Pulse 63 09/17/21 02:33 Resp 16 09/17/21 02:33 BP 159/83 09/17/21 02:33 Pulse Ox 96 09/17/21 02:33 Weight last 48 hrs Weight 75.296 kg Physical Exam Const: COMMON NORMALS: no acute distress and patient oriented x3 HENMT: HEAD & SCALP: normocephalic and atraumatic Neck/C-Spine: COMMON NORMALS: full ROM, no lymphadenopathy and supple Chest: COMMONS NORMALS: normal inspection of the chest Resp: AUSCULTATION: clear to auscultation bilaterally Cardio: RATE: regular rate RHYTHM: regular rhythm HEART SOUNDS: S1 normal heart sound present and S2 normal heart sound present GI: PALPATION: Yes Soft to palpation, No Tenderness to palpation present (GI), No Guarding due to palpation present (GI) and No No hepatosplenomegaly present Extremity: GENERAL: No clubbing, No cyanosis and No edema Neuro: COMMON NORMALS: patient oriented x3, moves all extremities, no focal motor deficits and no sensory deficits noted Psych: APPEARANCE: Yes grossly normal SPEECH: Yes normal speech Skin: GENERAL SKIN EXAM: no rashes or lesions noted and turgor normal Data : 09/16/21 22:28 09/16/21 22:28 A&P Assessment and plan (1) Chest pain: Patient is 45 year old female with HTN, and hypertensive nephropathy with previosly abnormal stress test in 12/2019 who has declined cardiac eval in the past and has been on medical management with aspirin, statin and coreg. Presents with chest pain- work up includes troponin at baseline 12, with 2 hour troponin of 11.6. EKG with non specific T wave changes. Monitor closely ECHO Resume aspirin, statin and coreg Cardiology consult Status: Acute (2) Essential hypertension: resume coreg and lisinopril Status: Acute Attestations Medical Necessity Statement*: Placed in observation for additional assessment of chest pain including serial troponin, echo and cardiac evaluation/consult Coding Level of Care Code Acute Pharmacy Account Director for Chg Fwd History Expanded Problem Focused Exam Expanded Problem Focused Medical Decision Making Low Complexity Diagnoses Chest pain R07.9 Essential hypertension I10
--- NOTE | 2021-09-17 03:48 | ECG_ITS ---
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 Measurements Intervals [place] Rate: 62 P: 45 CO: 186 QRS: 50 QRSD: 94 T: 166 QT: 425 QTc: 434 Interpretive Statements SINUS RHYTHM [address] DEVIATION AND MODERATE T-WAVE ABNORMALITY, CONSIDER LATERAL ISCHEMIA [-0.1+ mV T-WAVE IN I/aVL/V5/V6] Compared to ECG 09/16/2021 21:57:03 No significant changes Electronically Signed On 09-17-2021 20:57:52 CDT by Cindi Velázquez M.D. [id number]
[2021-09-17 05:11] LABS: Troponin 5 6HR 11.51 ng/L (0-10)
[2021-09-17 05:35] LABS: Troponin 5 6HR Delta -0.49 ng/L (0-12)
--- NOTE | 2021-09-17 08:00 | ECG_ITS ---
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 Measurements Intervals [place] Rate: 53 P: 34 [place]: 160 QRS: 61 QRSD: 94 T: 147 QT: 439 QTc: 413 Interpretive Statements SINUS BRADYCARDIA POSSIBLE INFERIOR MYOCARDIAL INFARCTION , OF INDETERMINATE AGE [30 ms Q WAVE IN II/aVF] MODERATE T-WAVE ABNORMALITY, CONSIDER LATERAL ISCHEMIA [-0.1+ mV T-WAVE IN I/aVL/V5/V6] Compared to ECG 09/17/2021 03:18:49 Myocardial infarct finding now present Sinus rhythm no longer present T-wave abnormality still present Possible ischemia still present Electronically Signed On 09-17-2021 20:57:02 CDT by Cindi Velázquez M.D. [id number]
[2021-09-17] MEDS: citalopram 20 mg Tablet 10 MG PO (08:19)
[2021-09-17] MEDS: pantoprazole DR 40 mg Tablet PO (08:19)
[2021-09-17] MEDS: atorvastatin 40 mg Tablet PO (08:19)
[2021-09-17] MEDS: FUROsemide 20 mg Tablet PO (08:19)
[2021-09-17] MEDS: amlodipine 10 mg Tablet PO (08:19)
[2021-09-17] MEDS: carvedilol 3.125 mg Tablet PO ×2 (08:19→17:26)
[2021-09-17] MEDS: aspirin 81 mg EC Tablet PO (08:19)
--- NOTE | 2021-09-17 08:42 | PC.PHAR ---
PT STATES SHE TAKES CARE OF HER OWN MEDICATIONS-PT STATES SHE HASNT BEEN ABLE TO AFFORD SOME OF HER MEDICATIONS- PT HAD BROUGHT IN A MED BOTTLE FOR BUPRENOP-NALTOX 8-2MG FILM DAILY RX BOTTLE DATED 10/20/2020 PT STATES SHE DOESNT TAKE THAT MEDICATION STATES IT HAS LASIX THAT SHE GETS FROM HER GRANDMOTHER IN THE BOTTLE-NOTES ARE MADE IN THE PHARMACY COMMENTS-
--- NOTE | 2021-09-17 10:41 | PC.CHAP ---
Pastoral Care Encounter/Spiritual Assessment Type of Contact [] Declined spot man visit [] Patient/Family/Request visit [] Outpatient visit [] Follow-up visit [] Physician referral [] Code/Alert [x] Routine visit [] Staff referral [] Actively dying [x] Patient sleeping [] Family support [] [] Out of room [] Palliative care [] [] Receiving care in room [] Pre-surgical visit [] Trauma [] Long length of stay [] ICU visit [] Other: Relational/Emotional Strength [] Patient feels connected with others/family/visitors/staff [] Distress [] Loneliness/isolation [] Abandonment Spirituality of Patient [ Person of Aracelis [] Attends Judaism of their Aracelis] Believes in Prayer [] Reads Bible or Christian materials [] There are Spiritual issues to be addressed 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 Interventions [] Prayer [] Active listening [] Non-anxious presence [] Spiritual/emotional support [] Crisis/trauma care [] Spiritual counseling [] Bereavement support [] Provided bereavement packet [] Provided Bible/devotional materials [] Provided toy/stuffed animal, coloring book to patient or family member [] Provided Communion [] Anointing/Orange [] Salvation [] Completed spiritual assessment [] Other: Impact on Illness or Injury [] Angry [] Fearful [] Anxious [] Often cries [] Exhaustion [] Unable to work [] Unable to attend taoist [] Unable to walk/stand [] Unable to read [] Unable to drive [] Unable to eat/drink [] Unable to sleep [] Unable to be with family [] Patient intubated [] Other: Summary Time spent with patient
[2021-09-17] MEDS: nicotine 14 mg Patch 1 PATCH TRANSDERMA (14:55)
[2021-09-17] MEDS: isosorbide mononitrate 20 mg Tablet PO (17:26)
[2021-09-17] MEDS: ALPRAZolam 0.5 mg Tablet PO (17:30)
[2021-09-18 03:00] VITALS: BP 109/66; PULSE 62; RESP 18; TEMP 36.4; O2SAT 97
[2021-09-18 04:45] LABS: Basophils % 0.4 %; Eosinophils # 0.2 10^3/uL (0.0-0.8); Eosinophils % 2.3 %; Hematocrit 38.4 % (37.0-47.0); Hemoglobin 12.1 g/dL (11.5-15.3); Lymphocytes % 21.9 %; Mean Corpuscular HGB Conc 31.5 g/dL (30.0-36.0); Mean Corpuscular Hemoglobin 29.8 pg (28.0-34.0); Mean Corpuscular Volume 94.6 fl (81-99); Mean Platelet Volume 13.3 fL (7.4-10.4); Monocytes # 0.6 10^3/uL (0.2-0.9); Monocytes % 6.8 %; Neutrophils # 6.28 10^3/uL (1.8-7.7); Neutrophils % 68.3 %; Nucleated Red Blood Cells % 0 %; Platelet Count 159 10^3/cmm (130-400); Red Blood Count 4.06 10^6/uL (4.1-5.3); Red Cell Distribution Width 14.8 % (12.1-15.1); White Blood Count 9.2 10^3/uL (4.0-10.0)
[2021-09-18 05:10] LABS: Anion Gap 15.3 (5-19); Blood Urea Nitrogen 36 mg/dL (6-20); Calcium 9.4 mg/dL (8.5-10.5); Carbon Dioxide 24 mmol/L (22-29); Chloride 104 mmol/L (98-107); Glomerular Filtration Rate 40.3 mL/min (90-130); Glucose 142 mg/dL (65-115); Osmolality Calculated 299 mOsm/kg (285-295); Potassium 4.3 mmol/L (3.5-5.1); Sodium 139 mmol/L (136-145)
[2021-09-18 05:15] VITALS: PULSE 54
[2021-09-18 07:00] VITALS: BP 126/75; PULSE 57; RESP 16; TEMP 36.4; O2SAT 98
[2021-09-18] MEDS: citalopram 20 mg Tablet 10 MG PO (08:43)
[2021-09-18] MEDS: FUROsemide 20 mg Tablet PO (08:43)
[2021-09-18] MEDS: atorvastatin 40 mg Tablet PO (08:43)
[2021-09-18] MEDS: pantoprazole DR 40 mg Tablet PO (08:43)
[2021-09-18] MEDS: aspirin 81 mg EC Tablet PO (08:43)
[2021-09-18] MEDS: nicotine 14 mg Patch 1 PATCH TRANSDERMA (08:43)
[2021-09-18] MEDS: amlodipine 10 mg Tablet PO (08:43)
[2021-09-18] MEDS: carvedilol 3.125 mg Tablet PO (08:43)
[2021-09-18] MEDS: isosorbide mononitrate 20 mg Tablet PO (08:48)
--- NOTE | 2021-09-18 10:50 | P.DS_ITS ---
Discharge Providers Date of Admission: 09/17/21 00:40 Date of Discharge: September 18, 2021 Attending Provider at Admission: Harleen Keane MD Attending Provider at Discharge: Alejandro Love MD Primary Care Provider: Andrae Menendez MD Diagnoses at Discharge Discharge Diagnosis (1) Chest pain: Status: Acute (2) Essential hypertension: Status: Acute Reason for Visit Reason for Visit: cp Hospital Course Hospital Course 45 year old female with h/o HTN, CHF, hypertensive nephropathy who was sent from her PCP clinic after being seen for c/o chest pain. Patient has had chest pain/pressure for a week. Location mid sternal, non radiating. She ran out of her SL nitro. She had some dyspnea as well. She had a positive stress test 01/09/20 however declined cardiac intervention. She has been medically managed on aspirin, statin and coreg. Evaluation in ED is fairly unremarkable. She is chest pain free. Troponin x 2 not elevated. EKG with non specific ST changes. She was admitted for the management and evaluation of chest pain. Hospital course: During the hospital 2D echo was done: Which showed normal LV cavity and size, normal systolic function Moderate concentric LVH, LVEF of 65%, no RWMA, normal LV size and systolic func tion, she remained chest pain-free, during hospital stay, given her prior history of abnormal stress test, as well as, presenting complaint in line with cardiac chest pain, and presence of smoking history as well as hypertension ,she was started on Imdur 20 mg p.o. daily, along with continuing carvedilol, amlodipine, chlorthalidone, and lisinopril. She has been asked to follow with cardiology as an outpatient in 1 week. She has also been asked to follow-up with her primary care physician in 1 week. In the event that if she continued to have any similar chest pain, she will have to come to the ER, at that point in time coronary angiogram plus minus PCI can be pursued. Overall patient has responded fairly well to above medical management and is being discharged in stable condition to home. Physical Exam Const: COMMON NORMALS: patient oriented x3 HENMT: COMMON NORMALS: normocephalic and atraumatic HEAD & SCALP: normocephalic and atraumatic Chest: CHEST: Yes Symmetrical chest wall rise Resp: COMMON NORMALS: normal respiratory effort and clear to auscultation bilaterally EFFORT & INSPECTION: Yes symmetric chest movement AUSCULTATION: clear to auscultation bilaterally Cardio: COMMON NORMALS: regular rate, regular rhythm, S1 normal heart sound present, S2 normal heart sound present, No gallops present (Cardio), No murmurs present (Cardio), No rub (Cardio) and Peripheral pulses 2+ throughout RATE: regular rate RHYTHM: regular rhythm HEART SOUNDS: S1 normal heart sound present and S2 normal heart sound present PERIPHERAL PULSES: Peripheral pulses 2+ throughout GI: COMMON NORMALS: Normal to inspection, nondistended, normoactive bowel sounds present, Soft to palpation, non-tender, No hepatosplenomegaly present and no masses AUSCULTATION: Yes normoactive bowel sounds PALPATION: Yes Soft to palpation and Yes No hepatosplenomegaly present RECTAL EXAM: deferred Extremity: COMMON NORMALS: no clubbing, cyanosis or edema and no pedal edema Neuro: COMMON NORMALS: patient oriented x3 Discharge Data Studies Completed and Pending Completed Studies During Hospitalization Category Date Time Status XR chest 1V portable [id number] Stat Exams 09/16/21 21:48 Completed CV. echo complete* [id number] Routine Ultrasound 09/17/21 01:40 Completed Pending at discharge Category Date Time Status BMP [Basic Metabolic Panel] AM LABS Lab 09/19/21 04:00 Ordered BMP [Basic Metabolic Panel] AM LABS Lab 09/20/21 04:00 Ordered CBC Auto Diff [Complete Blood Count w/Auto] AM LABS Lab 09/19/21 04:00 Ordered CBC Auto Diff [Complete Blood Count w/Auto] AM LABS Lab 09/20/21 04:00 Ordered Radiology Impressions Chest X-Ray 09/16/21 21:48 IMPRESSION: No acute findings. Laboratory Results WBC 9.2 10^3/uL (4.0-10.0) 09/18/21 04:03 RBC 4.06 10^6/uL (4.1-5.3) L 09/18/21 04:03 Hgb 12.1 g/dL (11.5-15.3) 09/18/21 04:03 Hct 38.4 % (37.0-47.0) 09/18/21 04:03 MCV 94.6 fl (81-99) 09/18/21 04:03 MCH 29.8 pg (28.0-34.0) 09/18/21 04:03 MCHC 31.5 g/dL (30.0-36.0) 09/18/21 04:03 RDW 14.8 % (12.1-15.1) 09/18/21 04:03 Plt Count 159 10^3/cmm (130-400) 09/18/21 04:03 MPV 13.3 fL (7.4-10.4) H 09/18/21 04:03 Neut % (Auto) 68.3 % 09/18/21 04:03 Lymph % (Auto) 21.9 % 09/18/21 04:03 [place] % (Auto) 6.8 % 09/18/21 04:03 Eos % (Auto) 2.3 % 09/18/21 04:03 Baso % (Auto) 0.4 % 09/18/21 04:03 Neut # (Auto) 6.28 10^3/uL (1.8-7.7) 09/18/21 04:03 Lymph # (Auto) 2.0 10^3/uL (0.8-4.8) 09/18/21 04:03 Mobile # (Auto) 0.6 10^3/uL (0.2-0.9) 09/18/21 04:03 Eos # (Auto) 0.2 10^3/uL (0.0-0.8) 09/18/21 04:03 Baso # (Auto) 0.0 10^3/uL (0.0-0.1) 09/18/21 04:03 Nucleated RBC % (auto) 0 % 09/18/21 04:03 Nucleated RBCs # 0.0 /100WBC 09/18/21 04:03 Sodium 139 mmol/L (136-145) 09/18/21 04:03 Potassium 4.3 mmol/L (3.5-5.1) 09/18/21 04:03 Chloride 104 mmol/L (98-107) 09/18/21 04:03 Carbon Dioxide 24 mmol/L (22-29) 09/18/21 04:03 Anion Gap 15.3 (5-19) 09/18/21 04:03 BUN 36 mg/dL (6-20) H 09/18/21 04:03 Creatinine 1.4 mg/dL (0.5-0.9) H 09/18/21 04:03 GFR Calculation 40.3 mL/min (90-130) L 09/18/21 04:03 Glucose 142 mg/dL (65-115) H 09/18/21 04:03 Calculated Osmolality 299 mOsm/kg (285-295) H 09/18/21 04:03 Calcium 9.4 mg/dL (8.5-10.5) 09/18/21 04:03 Total Bilirubin 0.2 mg/dL (0.15-1.2) 09/16/21 22:28 AST 17 U/L (0-32) 09/16/21 22: ALT 14 U/L (0-33) 09/16/21 22:28 Alkaline Phosphatase 99 IU/L (35-105) 09/16/21 22:28 Troponin T Baseline 12 ng/L (0-10) H 09/16/21 22:28 Troponin T 120 Minute 11.66 ng/L (0-10) H 09/17/21 01:00 Delta Troponin T -0.34 ABS# (0-10) L 09/17/21 01:00 Troponin T Hi Sens 6Hr 11.51 ng/L (0-10) H 09/17/21 04:40 Troponin T Hi Sens 6Hr Delta -0.49 ng/L (0-12) L 09/17/21 04:40 Total Protein 7.3 g/dL (6.6-8.7) 09/16/21 22:28 Albumin 4.3 g/dL (3.5-5.2) 09/16/21 22: Globulin 3.0 g/dL (1.3-4.6) 09/16/21 22:28 Vitals Last Vital Signs Temp 97.6 F 09/18/21 07:00 Pulse 57 L 09/18/21 07:00 Resp 16 09/18/21 07:00 BP 126/75 09/18/21 07:00 Pulse Ox 98 09/18/21 07:00 Discharge Plan Discharge Patient Disposition: Home Condition: Stable Prescriptions: New nicotine 14 mg/24 hr Patch 24 Hour 1 patch transdermal DAILY 30 Days Qty: 30 3RF isosorbide mononitrate 20 mg Tablet 20 mg PO DAILY 30 Days Qty: 30 3RF Continued Rani Back and Body 500-32.5 mg Tablet 1 tab PO Q12H PRN (Reason: Pain) 0RF atorvastatin 40 mg tablet 40 mg PO DAILY 90 Days Qty: 90 1RF Rx Instructions: please run through 340b Celexa 10 mg tablet 10 mg PO DAILY 90 Days Qty: 90 1RF Rx Instructions: please run through 340b lisinopril 20 mg tablet 20 mg PO BID 30 Days Qty: 60 1RF Rx Instructions: please run through 340b chlorthalidone 25 mg tablet 25 mg PO DAILY 30 Days Qty: 30 1RF Rx Instructions: please run through 340b aspirin 81 mg tablet,delayed release (DR/EC) 81 mg PO DAILY 90 Days Qty: 90 1RF Rx Instructions: please run through 340b Coreg 3.125 mg tablet 3.125 mg PO BID 90 Days Qty: 180 1RF Rx Instructions: please run through 340b alprazolam 0.5 mg tablet 0.5 mg PO BID PRN (Reason: anxiety) 30 Days Qty: 60 0RF amlodipine 10 mg tablet 10 mg PO DAILY 30 Days Qty: 30 3RF Rx Instructions: please run through 340b Protonix 40 mg tablet,delayed release (DR/EC) 40 mg PO DAILY 30 Days Qty: 30 0RF Nitrostat 0.4 mg tablet, sublingual 0.4 mg SUBLINGUAL Q5M PRN (Reason: chest pain) 30 Days Qty: 90 0RF Rx Instructions: please run through 340b Lasix 20 mg tablet 20 mg PO DAILY 90 Days Qty: 90 1RF Rx Instructions: please run through 340b Discharge Orders: Discharge Order (Routine); Ordered 09/18/21 Ordered By: Alejandro Love Referrals: Bismark Whiting MD [Physician] - 1 week (Please call Dr Whiting's Office at [phone] to schedule a follow up appointment and if you have any questions or concerns. Thank you.) Andrae Menendez MD [Primary Care Provider] - 1 week (Please call Dr Menendez's Office at [phone] for a follow up appointment and if you have any questions or concerns. Thank you.) Discharge Diet: Regular Discharge Activity: Resume usual activity Patient Instructions: Nicotine (Absorbed through the skin), Isosorbide Mononitrate (By mouth), Chest Pain (GEN), Opioid Safety Discharge Attestations Time Spent in Discharge Care*: less than 30 min Quality Metrics Clinical Quality Measures [ No reported AMI, CVA or VTE this stay] Coding Level of Care Code Acute Chg FW DC note Diagnoses Chest pain R07.9 Essential hypertension I10
[2021-09-18 11:00] VITALS: BP 130/76; PULSE 52; RESP 18; TEMP 36.4; O2SAT 96
== END 2021-09-18 11:32 | disposition home or self-care (01) ==
LOC: ER 23:55 → MEDSURG 09-17 00:40
PROVIDERS: Admitting Provider Internal Medicine; Emergency Provider Emergency Medicine; PCP Family Medicine; Visit Provider Internal Medicine
DX: R07.89 Other chest pain (principal); I10 Essential (primary) hypertension; F17.210 Nicotine dependence, cigarettes, uncomplicated; E78.2 Mixed hyperlipidemia; E55.9 Vitamin D deficiency, unspecified
CPT/HCPCS: 12345; 36415; 71045; 80048; 80053; 84484; 85025; 93005; 93306; 99285; G0378

== ENCOUNTER 2022-02-14 10:39 | Observation (INO) | payer SELFPAY ==
[2022-02-14] VITALS (8 sets, daily range): BP systolic 119–168; BP diastolic 72–101; PULSE 49–66; RESP 16–22; TEMP 36.6–36.8; O2SAT 97–98; BMI 28.6
--- NOTE | 2022-02-14 11:09 | XR_ITS ---
WS: [id number] Exam: XR chest 1V portable [id number] Date/Time of Exam: 02/14/2022 11:12 AM Reason For Exam: chest pain Comparison 09/16/2021. The lungs are clear and fully expanded. Normal cardiomediastinal silhouette. No pleural effusions. Mi ld dextroscoliosis of the T-spine. Old healed left clavicle fracture. XR/XR chest 1V portable [id number] IMPRESSION: 1. No acute cardiopulmonary finding.
--- NOTE | 2022-02-14 11:09 | CT_ITS ---
WS: [id number] CT HEAD NONCONTRAST HISTORY: Symptoms of Acute Stroke TECHNIQUE: Contiguous axial imaging performed through the brain in 2.5 mm imaging. Bone and soft tiss ue windows. Sagittal and coronal reformats reviewed. All CT scans at [facility] use at least one of these dose optimization techniques: automated exposure control; mA and/or kV adjustment per pa tient size (includes targeted exams where dose is matched to clinical indication); or iterative recon struction. DLP: 1039.77 mGy.cm COMPARISON: 04/18/2020 No acute intracranial hemorrhage, midline shift or mass effect. No atrophy or prior infarcts or herniation. Prior lacunar infarct in the LEFT idalia. Ventricles: Normal size with no hydrocephalus. No inferior displacement of cerebellar tonsils. Paranasal sinuses: As visualized are clear. Mastoid air cells: Well pneumatized. Calvarium and scalp: Skull is intact with no soft tissue edema or swelling. CT/CT head wo con* [id number] IMPRESSION: 1. No acute intracranial hemorrhage or edema. 2. Remote lacunar infarct LEFT idalia.
--- NOTE | 2022-02-14 11:09 | ECG_ITS ---
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 Measurements Intervals [place] Rate: 54 P: 47 WA: 166 QRS: 58 QRSD: 90 T: 136 QT: 408 QTc: 389 Interpretive Statements SINUS BRAD[address]IA ST DEVIATION AND MODERATE T-WAVE ABNORMALITY, CONSIDER LATERAL ISCHEMIA [-0.1+ mV T-WAVE IN I/aVL/V5/V6] Compared to ECG 09/17/2021 07:26:55 Myocardial infarct finding no longer present T-wave abnormality still present Possible ischemia still present Electronically Signed On 02-15-2022 0:08:43 CDT by Rani Mandujano M.D. [email or web address].[employer]/store/OM/[id number]
--- NOTE | 2022-02-14 11:12 | W.ED.GENADLT ---
HPI - General Adult General: Chief complaint: Altered Mental Status Stated complaint: Slurred speech, Sent by Shon Time Seen by Provider: 02/14/22 11:08 History of Present Illness: Patient is a 46-year-old female with history of smoking uncontrolled blood pressure presents the emergency room with complaints of slurring of speech and difficulty speaking for the last 4 days. Patient tells me that she woke up 4 days ago with similar symptoms. Patient has word finding difficulty and noticed that her voice is not her usual. Patient also reports that when she lies back, sometimes that she has vertigo-like sensation. Patient denies any weakness in the arms or legs, facial droop, diplopia, receptive aphasia,, balance issues, or gait instability. Patient has no complaints of chest pain, shortness breath palpitation lightheadedness, nausea/vomiting fever/chills, abdominal or complaints. No prior history of strokes. Patient was referred to the emergency room by Dr. Menendez for concerns of strokelike symptoms. Onset: 4 days ago Duration:4 days Location:home Severity:moderate Associated symptoms: Deny chest pain, dyspnea, nausea, rash, palpitations or vomiting Review of Systems Const: Denies: fever(s) or chills Eyes: Denies: change in vision ENMT: Denies: mouth pain Card: Denies: chest pain or palpitations Resp: Denies: dyspnea or non-productive cough GI: Denies: abdominal pain, nausea, vomiting or diarrhea : Denies: dysuria Musc: Denies: extremity pain Skin/Breast: Denies: rash or new lesions Neuro: Reports: other (+slurring of speech and word finding difficulities); Denies: weakness in extremities Psych: Reports: other (Normal mood) Matias/Lymph: Denies: easy bruising PFS ED PFSH: Medical History Back Pain Chest pain Current smoker Essential hypertension Essential hypertension Medication management Mixed hyperlipidemia Vitamin D deficiency Surgical History No pertinent past surgical history Family History Mother CAD (coronary artery disease) Grandmother CAD (coronary artery disease) Social History Smoking and tobacco status: current every day smoker Alcohol intake: never Physical Exam Const: COMMON NORMALS: alert HENMT: COMMON NORMALS: atraumatic HEAD & SCALP: atraumatic MOUTH: moist mucous membranes not abnormal Eye: COMMON NORMALS: EOMs intact bilaterally and conjunctivae normal CONJUNCTIVA: Yes conjunctivae normal Neck/C-Spine: COMMON NORMALS: full ROM and supple Resp: COMMON NORMALS: normal respiratory effort and clear to auscultation bilaterally AUSCULTATION: clear to auscultation bilaterally Cardio: COMMON NORMALS: regular rate RATE: regular rate GI: COMMON NORMALS: Soft to palpation PALPATION: Yes Soft to palpation OTHER: No focal TTP. NO guarding rebound, guarding, rigidity. No CVA tenderness to percussion. Neg Marc/Neg McBurney's point tenderness, no suprabupic tenderness to palpation. Extremity: COMMON NORMALS: full ROM Neuro: SENSORIUM/ORIENTATION: Yes alert MOTOR EXAM: No Abnormal motor strength present and Other motor observations present (no focal motor deficits) OTHER: Mental status? Awake, alert, and oriented to self, year, month, location, and situation.? Following simple axial and appendicular commands.? Has appropriate fund of knowledge, comprehension, and insight.? Able to recall and understands pertinent aspects of medical history and current treatment status.? ? Language? 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 ? Cranial nerves? 2,3,4,6: PERRL, EOMI with no nystagmus. 5: Intact sensation to light touch, symmetric? 7: Smile symmetrical, no facial droop.? 8: Hearing grossly intact.? 9,10: Normal palate movement.? 11: Normal strength in trapezius bilaterally 12: Tongue protrudes midline.? ? Motor examination? Normal bulk & tone. Strength as follows (R/L): Delts (5/5), Biceps (5/5), Triceps (5/5), Wrist ext (5/5), hip flexors (5/5), plantarflexors (5/5), dorsiflexors (5/5). ? Reflexs? Deep tendon examination (R/L): Biceps (2+/2+), Brachialis (2+/2+), Triceps (2+/2+), Knee jerk (2+/2+), Ankle Jerk (1+, 1+), Plantars (down/down) ? Sensation? Light Touch: Grossly intact and equal in upper and lower extremities bilaterally? Romberg: Negative.? Distal joint position sense intact ? Coordination? Vwtvou-um-musu-finger movements intact without dysmetria or past-pointing.? Rapid fingertaps: preserved amplitude without decriment.? No tremor, myoclonus or truncal ataxia.? ? Gait/stance? Steady, normal narrow base gait with appropriate arm swing and turning.? Tandem gait without hesitation or loss of balance. Psych: COMMON NORMALS: speech normal SPEECH: Yes normal speech MOOD & AFFECT: Yes euthymic mood Course Vital Signs: Vital signs: Vital Signs Temperature 98.2 F 02/14/22 10:50 Pulse Rate 60 02/14/22 13:42 Respiratory Rate 18 02/14/22 13:42 Blood Pressure 168/82 02/14/22 13:42 Pulse Oximetry 97 02/14/22 13:42 Oxygen Delivery Me thod 02/14/22 13:[address] [facility] - General Adult Medical Decision Making Patient is a 46-year-old female with history of smoking uncontrolled blood pressure presents the emergency room with complaints of slurring of speech and difficulty speaking for the last 4 days. Patient has mild expressive aphasia with mild word finding difficulty. No gross slurring of speech. Rest of neuro exam is intact. CT scan head showed left-sided remote pontine infarct. Lab work-up was unremarkable other creatinine 1.3 which is similar to baseline. Patient will be admitted to hospital for further stroke work-up. Disposition: admission Lab Data : 02/14/22 11:33 02/14/22 12:30 Radiology Impressions Chest X-Ray 02/14/22 11:09 IMPRESSION: 1. No acute cardiopulmonary finding. Head CT 02/14/22 11:09 IMPRESSION: 1. No acute intracranial hemorrhage or edema. 2. Remote lacunar infarct LEFT idalia. Laboratory Results WBC 10.3 10^3/uL (4.0-10.0) H 02/14/22 11:33 RBC 4.65 10^6/uL (4.1-5.3) 02/14/22 11:33 Hgb 14.2 g/dL (11.5-15.3) 02/14/22 11:33 Hct 42.8 % (37.0-47.0) 02/14/22 11:33 MCV 92.0 fl (81-99) 02/14/22 11:33 MCH 30.5 pg (28.0-34.0) 02/14/22 11:33 MCHC 33.2 g/dL (30.0-36.0) 02/14/22 11:33 RDW 15.3 % (12.1-15.1) H 02/14/22 11:33 Plt Count 171 10^3/cmm (130-400) 02/14/22 11:33 MPV 12.6 fL (7.4-10.4) H 02/14/22 11:33 Neut % (Auto) 53.3 % 02/14/22 11:33 Lymph % (Auto) 37.5 % 02/14/22 11:33 [place] % (Auto) 6.8 % 02/14/22 11:33 Eos % (Auto) 1.6 % 02/14/22 11:33 Baso % (Auto) 0.4 % 02/14/22 11:33 Neut # (Auto) 5.49 10^3/uL (1.8-7.7) 02/14/22 11:33 Lymph # (Auto) 3.9 10^3/uL (0.8-4.8) 02/14/22 11:33 [place] # (Auto) 0.7 10^3/uL (0.2-0.9) 02/14/22 11:33 Eos # (Auto) 0.2 10^3/uL (0.0-0.8) 02/14/22 11:33 Baso # (Auto) 0.0 10^3/uL (0.0-0.1) 02/14/22 11:33 Nucleated RBC % (auto) 0 % 02/14/22 11:33 Nucleated RBCs # 0.0 /100WBC 02/14/22 11:33 PT 13.00 SECONDS (12.1-14.9) 02/14/22 11:33 INR 0.95 (0.8-1.2) 02/14/22 11:33 APTT 34.6 SECONDS (23.9-36.7) 02/14/22 11:33 Sodium 136 mmol/L (136-145) 02/14/22 12:30 Potassium 3.9 mmol/L (3.5-5.1) 02/14/22 12:30 Chloride 101 mmol/L (98-107) 02/14/22 12:30 Carbon Dioxide 24 mmol/L (22-29) 02/14/22 12:30 Anion Gap 14.9 (5-19) 02/14/22 12:30 BUN 31 mg/dL (6-20) H 02/14/22 12:30 Creatinine 1.3 mg/dL (0.5-0.9) H 02/14/22 12:30 GFR Calculation 43.7 mL/min (90-130) L 02/14/22 12:30 Glucose 78 mg/dL (65-115) 02/14/22 12:30 POC Glucose 102 mg/dL (70-110) 02/14/22 11:37 Calculated Osmolality 287 mOsm/kg (285-295) 02/14/22 12:30 Calcium 9.4 mg/dL (8.5-10.5) 02/14/22 12:30 Total Bilirubin 0.4 mg/dL (0.15-1.2) 02/14/22 12:30 AST 19 U/L (0-32) 02/14/22 12:30 ALT 18 U/L (0-33) 02/14/22 12:30 Alkaline Phosphatase 90 U/L (35-105) 02/14/22 12:30 Troponin T Baseline 10 ng/L (0-10) 02/14/22 11:33 Total Protein 8.3 g/dL (6.6-8.7) 02/14/22 12:30 Albumin 4.2 g/dL (3.5-5.2) 02/14/22 12:30 Globulin 4.1 g/dL (1.3-4.6) 02/14/22 12:30 Imaging Data Other Imaging: Radiologist's impression: [address] [address] XRay Report Signed Patient: Imelda Cabezas Unit #: [id number] : 1975 Age/Sex: 46 / F ADM Date: 02/14/22 Loc: ER Room/Bed: Attending Dr: Ordering Provider/Ordering MD: Miguelina Paige MD Date of Service: 02/14/22 Procedure(s): XR chest 1V portable [id number] Accession Number(s): [id number] Report Number: [id number] WS: [email or web address] Exam: XR chest 1V portable [id number] Date/Time of Exam: 02/14/2022 11:12 AM Reason For Exam: chest pain Comparison 09/16/2021. The lungs are clear and fully expanded. Normal cardiomediastinal silhouette. No pleural effusions. Mild dextroscoliosis of the T-spine. Old healed left clavicle fracture. XR/XR chest 1V portable [id number] IMPRESSION: 1. No acute cardiopulmonary finding. ? Dictated By: Delbert Salinas DO Signed By: Delbert Salinas DO Signed Date/Time: 02/14/221123 DD/ [address] [place] [address] CT Scan Report Signed Patient: Imelda Cabezas Unit #: [id number] : 1975 Age/Sex: 46 / F ADM Date: 02/14/22 Loc: ER Room/Bed: Attending Dr: Ordering Provider/Ordering MD: Miguelina Paige MD Date of Service: 02/14/22 Procedure(s): CT head wo con* [id number] Accession Number(s): [id number] Report Number: [id number] WS: [email or web address] CT HEAD NONCONTRAST HISTORY: Symptoms of Acute Stroke TECHNIQUE: Contiguous axial imaging performed through the brain in 2.5 mm imaging. Bone and soft tissue windows. Sagittal and coronal reformats reviewed.? [facility] CT scans at [facility] use at least one of these dose optimization techniques: automated exposure control; mA and/or kV adjustment per patient size (includes targeted exams where dose is matched to clinical indication); or iterative reconstruction. DLP: 1039.77 mGy.cm COMPARISON: 04/18/2020 No acute intracranial hemorrhage, midline shift or mass effect. No atrophy or prior infarcts or herniation.? Prior lacunar infarct in the LEFT idalia. Ventricles:? Normal size with no hydrocephalus. No inferior displacement of cerebellar tonsils. Paranasal sinuses: As visualized are clear. Mastoid air cells: Well pneumatized. Calvarium and scalp: Skull is intact with no soft tissue edema or swelling. CT/CT head wo con* [id number] IMPRESSION: ? 1.? No acute intracranial hemorrhage or edema. 2.? Remote lacunar infarct LEFT idalia. ? Dictated By: Carmen Cotton DO Signed By: Carmen Cotton DO Signed Date/Time: 02/14/22 120 DD/ 1202 Discharge Plan Discharge Patient Disposition: Admitted As Inpatient Clinical Impression: Slurred speech, Word finding difficulty Condition: Stable Coding Level of Care Code ED Fitter Machinist for Chg Fwd Exam Comprehensive
[2022-02-14 11:40] LABS: Glucose Point of Care 102 mg/dL (70-110)
[2022-02-14 11:44] LABS: Basophils % 0.4 %; Eosinophils # 0.2 10^3/uL (0.0-0.8); Eosinophils % 1.6 %; Hematocrit 42.8 % (37.0-47.0); Hemoglobin 14.2 g/dL (11.5-15.3); Lymphocytes # 3.9 10^3/uL (0.8-4.8); Lymphocytes % 37.5 %; Mean Corpuscular HGB Conc 33.2 g/dL (30.0-36.0); Mean Corpuscular Hemoglobin 30.5 pg (28.0-34.0); Monocytes # 0.7 10^3/uL (0.2-0.9); Monocytes % 6.8 %; Neutrophils # 5.49 10^3/uL (1.8-7.7); Neutrophils % 53.3 %; Nucleated Red Blood Cells % 0 %; Platelet Count 171 10^3/cmm (130-400); Red Blood Count 4.65 10^6/uL (4.1-5.3); Red Cell Distribution Width 15.3 % (12.1-15.1); White Blood Count 10.3 10^3/uL (4.0-10.0)
[2022-02-14 12:04] LABS: INR 0.95 (0.8-1.2)
[2022-02-14 12:05] LABS: Partial Thromboplastin Time 34.6 SECONDS (23.9-36.7)
[2022-02-14 12:08] LABS: Mean Platelet Volume 12.6 fL (7.4-10.4)
[2022-02-14 12:14] LABS: Troponin(5th) Baseline 10 ng/L (0-10)
[2022-02-14 13:01] LABS: Alanine Aminotransferase 18 U/L (0-33); Albumin Level 4.2 g/dL (3.5-5.2); Alkaline Phosphatase 90 U/L (35-105); Anion Gap 14.9 (5-19); Aspartate Amino Transferase 19 U/L (0-32); Blood Urea Nitrogen 31 mg/dL (6-20); Calcium 9.4 mg/dL (8.5-10.5); Carbon Dioxide 24 mmol/L (22-29); Chloride 101 mmol/L (98-107); Globulin 4.1 g/dL (1.3-4.6); Glomerular Filtration Rate 43.7 mL/min (90-130); Glucose 78 mg/dL (65-115); Osmolality Calculated 287 mOsm/kg (285-295); Potassium 3.9 mmol/L (3.5-5.1); Sodium 136 mmol/L (136-145); Total Bilirubin 0.4 mg/dL (0.15-1.2); Total Protein 8.3 g/dL (6.6-8.7)
--- NOTE | 2022-02-14 13:09 | ECG_ITS ---
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 Measurements Intervals [place] Rate: 53 P: 48 MS: 176 QRS: 64 QRSD: 92 T: 133 QT: 442 QTc: 416 Interpretive Statements SINUS BRADY[address]IA ST DEVIATION AND MODERATE T-WAVE ABNORMALITY, CONSIDER LATERAL ISCHEMIA [-0.1+ mV T-WAVE IN I/aVL/V5/V6] Compared to ECG 02/14/2022 11:26:12 No significant changes Electronically Signed On 02-15-2022 0:23:32 CDT by Rani Mandujano M.D. [email or web address]/[id number]
[2022-02-14 14:16] LABS: Troponin 5 2HR 11.53 ng/L (0-10)
[2022-02-14 14:19] LABS: Add Urine Microscopic? YES; Bilirubin Urine Neg (Negative); Blood Urine Neg (Negative); Glucose Urine UA Norm (Normal); Ketones Urine Negative (Negative); Leukocyte Esterase Urine 1+ (Negative); Nitrate Urine Negative (Negative); Protein Urine Trace (Negative); Urine Appearance Clear (CLEAR); Urine Color Yellow (Yellow); Urobilinogen Urine Norm (Negative); pH Urine 5 (5-7)
[2022-02-14 14:19] LABS: Troponin 5 2HR Delta 1.53 ABS# (0-10)
[2022-02-14 14:20] LABS: Add Urine Culture? No; Bacteria Urine 1+ /hpf; Squamous Epithelial Cell Urine 0-4 /hpf (0-5)
--- NOTE | 2022-02-14 14:48 | P.HP_ITS ---
Providers/Chief Complaint Primary Care Provider: Andrae Menendez MD Chief Complaint: Slurred speech, Sent by Shon History of Present Illness Imelda Cabezas is a 46 year old female with past medical history of hypertension, alcoholism, noncompliance of medications, hypertensive nephropathy, nicotine dependence, hyperlipidemia presented to the hospital today with complaints of slurred speech and difficulty speaking for last 4 days. She states she woke up 4 days ago with similar symptoms. She also had some word finding difficulty and noticed that her voice has changed. When she lies flat she has vertigo-like sensation. Also this she has no other symptoms. He has never had a stroke before. He denies shortness of breath, chest pain, lightheadedness, room spinning around her feeling at this time. No nausea, vomiting, fever, chills. Denies any weakness or specific body parts. Feels like her usual self otherwise except that she does have difficulty with her words. Denies having any balance issues or double vision. She was sent here by Dr. Hui. ED course: 168/82 heart rate 18, pulse 60, temperature 98.2, pulse ox 97% on room air. No exam was done by the ER physician which showed no gross deficits except some word finding difficulty. Chest x-ray showed no acute cardiopulmonary finding, head CT done showed no acute intracranial hemorrhage or edema, remote lacunar infarct left idalia. Medications/Allergies Home Medications Medication Instructions Recorded Confirmed Last Taken Type nitroglycerin 0.4 mg sublingual 0.4 mg sublingual Q5M PRN chest 11/11/21 02/14/22 Unknown Rx tablet (Nitrostat) pain 30 days #90 tabs amlodipine 10 mg tablet 10 mg PO DAILY 90 days #90 tabs 12/23/21 02/14/22 Unknown Rx aspirin 81 mg tablet,delayed 81 mg PO DAILY 90 days #90 tabs 12/23/21 02/14/22 Unknown Rx release atorvastatin 40 mg tablet 40 mg PO DAILY 90 days #90 tabs 12/23/21 02/14/22 Unknown Rx carvedilol 3.125 mg tablet (Coreg) 3.125 mg PO BID 90 days #180 tabs 12/23/21 02/14/22 Unknown Rx chlorthalidone 25 mg tablet 25 mg PO DAILY 90 days #90 tabs 12/23/21 02/14/22 Unknown Rx furosemide 20 mg tablet (Lasix) 20 mg PO DAILY PRN edema 90 days 12/23/21 02/14/22 Unknown Rx #90 tabs isosorbide mononitrate 20 mg tablet 10 mg PO DAILY 90 days #90 tabs 12/23/21 02/14/22 Unknown Rx lisinopril 20 mg tablet 20 mg PO BID 90 days #180 tabs 12/23/21 02/14/22 Unknown Rx pantoprazole 40 mg tablet,delayed 40 mg PO DAILY 90 days #90 tabs 12/23/21 02/14/22 Unknown Rx release (Protonix) alprazolam 0.5 mg tablet 0.5 mg PO BID PRN anxiety 30 days 01/21/22 02/14/22 Unknown Rx #60 tabs Allergies Allergy/AdvReac Type Severity Reaction Status Date / Time No Known Allergies Allergy Verified 12/23/21 09:51 PFSH Acute 2 PFSH: Medical History Back Pain Chest pain Current smoker Essential hypertension Essential hypertension Medication management Mixed hyperlipidemia Vitamin D deficiency Surgical History No pertinent past surgical history Family History Mother CAD (coronary artery disease) Grandmother CAD (coronary artery disease) Social History Smoking and tobacco status: current every day smoker Alcohol intake: never Vitals/I&O/Wt Last Vital Signs Temp 98.2 F 02/14/22 10:50 Pulse 60 02/14/22 13:42 Resp 18 02/14/22 13:42 BP 168/82 02/14/22 13:42 Pulse Ox 97 02/14/22 13:42 O2 Del Method 02/14/22 13:42 Weight last 48 hrs Weight 78.018 kg Physical Exam Narrative: General: Alert oriented x3, patient seen laying in bed, no acute distress HEENT: Normocephalic, atraumatic, EOMI, breathing normally on room air Cardio: Regular rate rhythm, normal S1-S2, Respiratory: Good bilateral air entry, no wheezes no rhonchi appreciated, clear to auscultation bilaterally GI: Abdomen soft, nontender, nondistended, bowel sounds + Behavior: Appropriate and cooperative Extremities: No lower extremity edema Neuro: Cranial nerves II to XII intact, strength 5 out of 5 upper and lower extremities, no word finding difficulty present at this time. finger to nose normal, heel to de paz normal Data : 02/14/22 11:33 02/14/22 12:30 A&P Assessment and plan (1) Slurred speech: (2) Word finding difficulty: (3) Essential hypertension: (4) Dizziness: (5) Vitamin D deficiency: (6) Mixed hyperlipidemia: (7) Generalized anxiety disorder: Plan #Word finding difficulty, difficulty speaking, rule out stroke versus TIA #History of remote lacunar infarct #Uncontrolled hypertension #Noncompliance with medications #Hypertensive nephropathy, chronic kidney disease #Anxiety ? CT head did not show acute stroke. Remote lacunar infarct present. Patient does have some word finding difficulty. ? We will check MRI brain stat. Patient symptoms started 4 days ago therefore she is probably not a candidate for tPA at this time ? Check carotid Dopplers ? Check echo ? Monitor on telemetry ? Manage blood pressure. Will allow for permissive hypertension at this time. She is currently 160/80. We will avoid lowering it further for now and monitor patient. -Check lipid panel, hemoglobin A1c ? Continue aspirin 325 daily at this time. Atorvastatin 80 ? We will need to confirm patient's home medications through pharmacy ? Continue pantoprazole daily -We will wait for MRI before ordering further work-up. Full code DVT prophylaxis: Heparin Attestations Medical Necessity Statement*: Will observe patient overnight and initiate stroke work-up. Coding Level of Care Code Acute Product Manager for Lizz Alva Diagnoses Slurred speech R47.81 Word finding difficulty R47.89 Essential hypertension I10 Dizziness R42 Vitamin D deficiency E55.9 Mixed hyperlipidemia E78.2 Generalized anxiety disorder F41.1
--- NOTE | 2022-02-14 14:59 | MRR_ITS ---
PROCEDURE INFORMATION: Exam: MR Head Without Contrast Exam date and time: 02/14/2022 5:43 PM Age: 46 years old Clinical indication: Speech disturbance; Slurred speech; Patient HX: Possible stroke 3 days ago; Additional info: Word finding difficulty TECHNIQUE: Imaging protocol: Magnetic resonance imaging of the head without contrast. COMPARISON: CT head wo con* [id number] 02/14/2022 11:57 AM FINDINGS: Brain: Punctate acute infarct in the posterior limb of the right internal capsule. Multiple foci of susceptibility artifact noted within the cerebellar lobes and idalia suggestive of microhemorrhages. No significant white matter disease. No edema. Cerebral ventricles: Normal. No ventriculomegaly. Bones/joints: Unremarkable. Paranasal sinuses: Normal as visualized. No acute sinusitis. Mastoid air cells: Normal as visualized. No mastoid effusion. Orbital cavities: Unremarkable. Soft tissues: Unremarkable. MR/MR head wo con* [id number] IMPRESSION: 1. Punctate acute infarct in the posterior limb of the right internal capsule. 2. 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 Findings were discussed with Frances Yeung at 02/14/2022 6:25 PM CDT.
--- NOTE | 2022-02-14 14:59 | USCV_ITS ---
Imelda Cabezas Age: 46 Gender: F : 1975 Exam Date: 02/14/2022 15:33 Ordering Phys: Frances Yeung MD Technologist: JOHN [place] [facility] [place]: STROKE Risk Factors: Previous Vascular Surgery: Right Brachial BP: / Left Brachial BP: / Right Left Velocity (cm/s) Spectral Plaque Velocity (cm/s) Spectral Plaque Syst/Diast Broadening Syst/Diast Broadening 77.20/ 26.50 Prox CCA 96.60 / 22.20 79.40/ 16.50 Mid CCA 123.50/ 24.30 78.80/ 23.80 Distal CCA 104.75/ 28.70 76.90/ 35.40 Prox ICA 114.70/ 47.40 81.00/ 32.40 Mid ICA 87.90 / 20.90 100.30/33.10 Distal ICA 64.80 / 23.10 80.30 ECA 101.20 1.26 ICA/CCA 0.93 Antegrade Vertebral Antegrade 58.40/ 17.60 cm/s 73.90/ 29.60 cm/s Tri Subclavian Tri 101.4 126.2 0 0 CONCLUSIONS Right ICA stenosis <50%. Left ICA stenosis <50%. Normal antegrade Doppler flow noted in the right vertebral artery. Normal antegrade Doppler flow noted in the left vertebral artery. Khanh Chahal MD (Electronically Signed) Final Date: 14 February 2022 16:36 S
--- NOTE | 2022-02-14 14:59 | USCV_ITS ---
Imelda Cabezas Age: 46 Gender: F : 1975 Exam Date: 02/14/2022 15:49 Ordering Phys: Frances Yeung MD Technologist: JOHN [place] [facility] [place]: STROKE BP: 168 / 82 HR: 48 Rhythm: Sinus Technical Quality: Adequate MEASUREMENTS (Male / Female) Normal Values 2D ECHO LVOT Diameter 2.0 cm LV Ejection Fraction MOD 2C 56.1 % LV Ejection Fraction 2C AL 57.1 % LA Diameter 3.6 cm LA Width 3.6 cm LA Height 4.5 cm RA Width 3.9 cm RA Height 4.3 cm Aorta at Sinotubular Diameter 2.3 cm IVC Diameter 1.6 cm M-MODE Aortic Annulus Diameter 2.9 cm LA Ao Ratio MM 1.1 MV E Point Septal Separation 0.4 cm DOPPLER AV Peak Velocity 179.0 cm/s LVOT Peak Velocity 117.0 cm/s AV Area Cont Eq vti 2.9 cm squared AV Area Cont Eq pk 2.1 cm squared MV Peak Velocity 88.0 cm/s MV Area PHT 2.7 cm squared Mitral E to A Ratio 1.1 MV E' Velocity 46.5 cm/s Mitral E to MV E' Ratio 8.9 Mitral E to LV E' Lateral Ratio 7.2 Mitral E to LV E' Septal Ratio 11.9 TR Peak Velocity 216.0 cm/s TR Peak Gradient 18.7 mmHg TR Mean Velocity 207.0 cm/s TR Mean Gradient 17.7 mmHg TR Velocity Time Integral 100.1 cm TV Peak E Velocity 48.0 cm/s Right Atrial Pressure 3.0 mmHg Pulmonary Artery Systolic Pressu 21.7 mmHg FINDINGS Left Ventricle Normal left ventricular size, systolic function and wall thickness, with no regional wall motion abnormalities. Left ventricular ejection fraction is estimated at 60 %. Normal diastolic function. Right Ventricle Normal right ventricular size and systolic function. Right ventricular systolic pressure 29 mmHg. Right Atrium Normal right atrial size. No evidence of intracardiac shunt. Left Atrium Normal left atrial size. Mitral Valve Structurally normal mitral valve. No mitral valve stenosis. No mitral valve regurgitation. Aortic Valve Aortic valve not well visualized. No aortic valve stenosis. Mild aortic valve regurgitation. Tricuspid Valve Structurally normal tricuspid valve. No tricuspid valve stenosis. Trace to mild tricuspid valve regurgitation. Pulmonic Valve Pulmonic valve not well visualized. Pericardium No pericardial effusion. Aorta Normal size aortic root. IVC Normal IVC dimension with >50% respiratory change of the inferior vena cava. CONCLUSIONS 1. Normal left ventricular size, systolic function and wall thickness, with no regional wall motion abnormalities. Left ventricular ejection fraction is estimated at 60 %. Normal diastolic function. 2. Mild aortic valve regurgitation. 3. Pulmonary artery pressure estimated at 29 mm Hg. 4. No evidence of intracardiac shunt by bubble study. 5. When compared to study dated 09/17/21, there has been no significant change. Cindi Velázquez MD (Electronically Signed) Final Date: 14 February 2022 21:03 S
[2022-02-14 15:28] LABS: Estmated Average Glucose 105; Hemoglobin A1C 5.3 % (4.0-6.0)
[2022-02-14 15:31] LABS: Chol HDL Ratio 6.12 mg/dL (0.0-4.40); Cholesterol 208 mg/dL (0-200); HDL Cholesterol 34 mg/dL (60-100); LDL Cholesterol Calculated 148 mg/dL (50-129); LDL HDL Ratio 4.35 RATIO (0.00-3.22); Thyroid Stimulating Hormone 0.81 uIU/mL (0.27-4.20); Triglycerides 129 mg/dL (0-150)
--- NOTE | 2022-02-14 15:58 | PC.NURSE ---
Dr. Yeung notified that pt is bradycardix down to 43. Not symptomatic
--- NOTE | 2022-02-14 16:47 | ECG_ITS ---
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 Measurements Intervals [place] Rate: 49 P: 47 KS: 178 QRS: 71 QRSD: 98 T: 142 QT: 441 QTc: 400 Interpretive Statements SINUS BRADYCARDIA NONSPECIFIC ST & T-WAVE ABNORMALITY Compared to ECG 02/14/2022 13:21:36 Possible ischemia no longer present T-wave abnormality still present Electronically Signed On 02-15-2022 0:24:54 CDT by Rani Mandujano M.D. [id number]
[2022-02-14] MEDS: heparin 5,000 unit/mL INJ 1 mL 5000 UNIT SUBCUT (17:07)
[2022-02-14] MEDS: pantoprazole 40 mg SDV IVP (17:07)
[2022-02-14 17:54] LABS: Troponin 5 6HR 11.39 ng/L (0-10)
[2022-02-14 17:56] LABS: Troponin 5 6HR Delta 1.39 ng/L (0-12)
--- NOTE | 2022-02-14 21:08 | PC.NURSE ---
Received telephone order to discontinue aspirin and amlodipine per Dr. Yeung. Communicated with pts nurse Alicia
[2022-02-14 21:33] LABS: C Reactive Protein 3.9 mg/L (0.0-4.9)
[2022-02-15] VITALS: BP 127/70; PULSE 57; RESP 18; TEMP 36.6; O2SAT 97
[2022-02-15] MEDS: heparin 5,000 unit/mL INJ 1 mL 5000 UNIT SUBCUT (02:28)
[2022-02-15 04:00] VITALS: BP 104/63; PULSE 45; RESP 18; TEMP 36.6; O2SAT 94
[2022-02-15 06:00] VITALS: PULSE 50
[2022-02-15 06:02] LABS: Basophils # 0.1 10^3/uL (0.0-0.1); Basophils % 0.6 %; Eosinophils # 0.2 10^3/uL (0.0-0.8); Eosinophils % 2.4 %; Hematocrit 43.8 % (37.0-47.0); Lymphocytes # 3.9 10^3/uL (0.8-4.8); Lymphocytes % 43.3 %; Mean Platelet Volume 12.9 fL (7.4-10.4); Monocytes # 0.7 10^3/uL (0.2-0.9); Monocytes % 7.6 %; Neutrophils # 4.11 10^3/uL (1.8-7.7); Neutrophils % 45.8 %; Nucleated Red Blood Cells % 0 %; Platelet Count 152 10^3/cmm (130-400); Red Blood Count 4.66 10^6/uL (4.1-5.3); Red Cell Distribution Width 14.8 % (12.1-15.1)
[2022-02-15 06:19] LABS: Alanine Aminotransferase 16 U/L (0-33); Albumin Level 3.6 g/dL (3.5-5.2); Alkaline Phosphatase 90 U/L (35-105); Anion Gap 13.3 (5-19); Aspartate Amino Transferase 18 U/L (0-32); Blood Urea Nitrogen 36 mg/dL (6-20); Calcium 9.9 mg/dL (8.5-10.5); Carbon Dioxide 23 mmol/L (22-29); Chloride 103 mmol/L (98-107); Globulin 3.8 g/dL (1.3-4.6); Glomerular Filtration Rate 40.1 mL/min (90-130); Glucose 111 mg/dL (65-115); Osmolality Calculated 289 mOsm/kg (285-295); Phosphorus 3.4 mg/dL (2.5-4.5); Potassium 4.3 mmol/L (3.5-5.1); Sodium 135 mmol/L (136-145); Total Bilirubin 0.3 mg/dL (0.15-1.2); Total Protein 7.4 g/dL (6.6-8.7)
[2022-02-15 07:31] VITALS: BP 129/82; PULSE 54; RESP 20; TEMP 36.7; O2SAT 97
[2022-02-15] MEDS: atorvastatin 40 mg Tablet 80 MG PO (09:02)
--- NOTE | 2022-02-15 09:54 | PM.DCS ---
Discharge Providers Date of Admission: 02/14/22 14:02 Date of Discharge: February 15, 2022 Attending Provider at Admission: Frances Yeung MD Attending Provider at Discharge: Frances Yeung MD Primary Care Provider: Andrae Menendez MD Diagnoses at Discharge Discharge Diagnosis (1) Slurred speech: Status: Resolved (2) Word finding difficulty: Status: Resolved (3) Essential hypertension: Status: Acute (4) Dizziness: Status: Resolved (5) Vitamin D deficiency: Status: Acute (6) Mixed hyperlipidemia: Status: Acute (7) Generalized anxiety disorder: Status: Acute Reason for Visit Reason for Visit: Slurred speech, Sent by Shon Brief History: Imelda Cabezas is a 46 year old female with past medical history of hypertension, alcoholism, noncompliance of medications, hypertensive nephropathy, nicotine dependence, hyperlipidemia presented to the hospital today with complaints of slurred speech and difficulty speaking for last 4 days.? She states she woke up 4 days ago with similar symptoms.? She also had some word finding difficulty and noticed that her voice has changed.? When she lies flat she has vertigo-like sensation.? Also this she has no other symptoms.? He has never had a stroke before.? He denies shortness of breath, chest pain, lightheadedness, room spinning around her feeling at this time.? No nausea, vomiting, fever, chills.? Denies any weakness or specific body parts.? Feels like her usual self otherwise except that she does have difficulty with her words.? Denies having any balance issues or double vision.? She was sent here by Dr. Hui. ED course: 168/82 heart rate 18, pulse 60, temperature 98.2, pulse ox 97% on room air.? No exam was done by the ER physician which showed no gross deficits except some word finding difficulty.? Chest x-ray showed no acute cardiopulmonary finding, head CT done showed no acute intracranial hemorrhage or edema, remote lacunar infarct left idalia. Hospital Course Hospital Course Patient presented with worsening difficulty. Head CT was negative for acute stroke. Onset of symptoms 4 days ago. She also stated that sometimes she cannot afford to buy medications therefore in the past has not taken her blood pressure medications as advised and sometimes only takes lisinopril. She said recently however she has been able to purchase all of her medications and has been taking them as scheduled. MRI was done. 1. Punctate acute infarct in the posterior limb of the right internal capsule. 2. 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 Case discussed with Dr. Jimenes. She advised to have patient follow-up as an outpatient with her for MRA. Dr. Jimenes will schedule that study for her. Patient to go home on aspirin, statin. Her blood pressure was low to normal during hospital stay therefore all her blood pressure meds were held except amlodipine was continued. She was to follow-up with primary care within a day of discharge to go over all the medications and restart them appropriately. She was also advised to recheck her blood pressure at home. Physical Exam Narrative: General: Alert oriented x3, patient seen laying in bed, no acute distress HEENT: Normocephalic, atraumatic, EOMI, breathing normally on room air Cardio: Regular rate rhythm, normal S1-S2, Respiratory: Good bilateral air entry, no wheezes no rhonchi appreciated, clear to auscultation bilaterally GI: Abdomen soft, nontender, nondistended, bowel sounds + Behavior: Appropriate and cooperative Extremities: No lower extremity edema Neuro: Cranial nerves II to XII intact, strength 5 out of 5 upper and lower extremities, no word finding difficulty present at this time. finger to nose normal, heel to de paz normal, symptoms have resolved. Discharge Data Studies Completed and Pending Completed Studies During Hospitalization Category Date Time Status CT head wo con* [id number] Stat Cat Scan 02/14/22 11:09 Completed XR chest 1V portable [id number] Stat Exams 02/14/22 11:09 Completed MR head wo con* [id number] Stat MRI 02/14/22 14:59 Completed CV carotid duplex BI* [id number] Stat Ultrasound 02/14/22 14:59 Completed CV. echo w/w bubble cont [id number] Stat Ultrasound 02/14/22 14:59 Completed Pending at discharge Category Date Time Status LIBORIO Screen w/MPO & PR3 w/Refle Routine Lab 02/14/22 20:59 Received GLORY Profile Rheumatology Routine Lab 02/14/22 20:59 Received ANCA [Anti-Neutrophil Cytoplasmic AB] Routine Lab 02/14/22 20:59 Received Radiology Impressions Chest X-Ray 02/14/22 11:09 IMPRESSION: 1. No acute cardiopulmonary finding. Head CT 02/14/22 11:09 IMPRESSION: 1. No acute intracranial hemorrhage or edema. 2. Remote lacunar infarct LEFT idalia. Head MRI 02/14/22 14:59 IMPRESSION: 1. Punctate acute infarct in the posterior limb of the right internal capsule. 2. 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 Findings were discussed with Frances Yeung at 02/14/2022 6:25 PM CDT. Laboratory Results WBC 9.0 10^3/uL (4.0-10.0) 02/15/22 05:50 RBC 4.66 10^6/uL (4.1-5.3) 02/15/22 05:50 Hgb 14.0 g/dL (11.5-15.3) 02/15/22 05:50 Hct 43.8 % (37.0-47.0) 02/15/22 05:50 MCV 94.0 fl (81-99) 02/15/22 05:50 MCH 30.0 pg (28.0-34.0) 02/15/22 05:50 MCHC 32.0 g/dL (30.0-36.0) 02/15/22 05:50 RDW 14.8 % (12.1-15.1) 02/15/22 05:50 Plt Count 152 10^3/cmm (130-400) 02/15/22 05:50 MPV 12.9 fL (7.4-10.4) H 02/15/22 05:50 Neut % (Auto) 45.8 % 02/15/22 05:50 Lymph % (Auto) 43.3 % 02/15/22 05:50 Mckean % (Auto) 7.6 % 02/15/22 05:50 Eos % (Auto) 2.4 % 02/15/22 05:50 Baso % (Auto) 0.6 % 02/15/22 05:50 Neut # (Auto) 4.11 10^3/uL (1.8-7.7) 02/15/22 05:50 Lymph # (Auto) 3.9 10^3/uL (0.8-4.8) 02/15/22 05:50 Mckean # (Auto) 0.7 10^3/uL (0.2-0.9) 02/15/22 05:50 Eos # (Auto) 0.2 10^3/uL (0.0-0.8) 02/15/22 05:50 Baso # (Auto) 0.1 10^3/uL (0.0-0.1) 02/15/22 05:50 Nucleated RBC % (auto) 0 % 02/15/22 05:50 Nucleated RBCs # 0.0 /100WBC 02/15/22 05:50 PT 13.00 SECONDS (12.1-14.9) 02/14/22 11:33 INR 0.95 (0.8-1.2) 02/14/22 11:33 APTT 34.6 SECONDS (23.9-36.7) 02/14/22 11:33 Sodium 135 mmol/L (136-145) L 02/15/22 05:50 Potassium 4.3 mmol/L (3.5-5.1) 02/15/22 05:50 Chloride 103 mmol/L (98-107) 02/15/22 05:50 Carbon Dioxide 23 mmol/L (22-29) 02/15/22 05:50 Anion Gap 13.3 (5-19) 02/15/22 05:50 BUN 36 mg/dL (6-20) H 02/15/22 05:50 Creatinine 1.4 mg/dL (0.5-0.9) H 02/15/22 05:50 GFR Calculation 40.1 mL/min (90-130) L 02/15/22 05:50 Glucose 111 mg/dL (65-115) 02/15/22 05:50 POC Glucose 102 mg/dL (70-110) 02/14/22 11:37 Estimat Average Glucose 105 02/14/22 11:33 Hemoglobin A1c 5.3 % (4.0-6.0) 02/14/22 11:33 Calculated Osmolality 289 mOsm/kg (285-295) 02/15/22 05:50 Calcium 9.9 mg/dL (8.5-10.5) 02/15/22 05:50 Phosphorus 3.4 mg/dL (2.5-4.5) 02/15/22 05:50 Magnesium 2.0 mg/dL (1.7-2.3) 02/15/22 05:50 Total Bilirubin 0.3 mg/dL (0.15-1.2) 02/15/22 05:50 AST 18 U/L (0-32) 02/15/22 05:50 ALT 16 U/L (0-33) 02/15/22 05:50 Alkaline Phosphatase 90 U/L (35-105) 02/15/22 05:50 Troponin T Baseline 10 ng/L (0-10) 02/14/22 11:33 Troponin T 120 Minute 11.53 ng/L (0-10) H 02/14/22 13:37 Delta Troponin T 1.53 ABS# (0-10) 02/14/22 13:37 Troponin T Hi Sens 6Hr 11.39 ng/L (0-10) H 02/14/22 17:24 Troponin T Hi Sens 6Hr Delta 1.39 ng/L (0-12) 02/14/22 17:24 C-Reactive Protein 3.9 mg/L (0.0-4.9) 02/14/22 20:59 Total Protein 7.4 g/dL (6.6-8.7) 02/15/22 05:50 Albumin 3.6 g/dL (3.5-5.2) 02/15/22 05:50 Globulin 3.8 g/dL (1.3-4.6) 02/15/22 05:50 Triglycerides 129 mg/dL (0-150) 02/14/22 13:31 Cholesterol 208 mg/dL (0-200) H 02/14/22 13:31 LDL Cholesterol, Calc 148 mg/dL (50-129) H 02/14/22 13:31 HDL Cholesterol 34 mg/dL (60-100) L 02/14/22 13:31 LDL/HDL Ratio 4.35 RATIO (0.00-3.22) H 02/14/22 13:31 Cholesterol/HDL Ratio 6.12 mg/dL (0.0-4.40) H 02/14/22 13:31 TSH 0.81 uIU/mL (0.27-4.20) 02/14/22 13:31 Urine Color Yellow (Yellow) 02/14/22 12:33 Urine Appearance Clear (CLEAR) 02/14/22 12:33 Urine pH 5 (5-7) 02/14/22 12:33 Ur Specific [place] 1.020 (1.005-1.030) 02/14/22 12:33 Urine Protein Trace (Negative) 02/14/22 12:33 Urine Glucose (UA) Norm (Normal) 02/14/22 12:33 Urine Ketones Negative (Negative) 02/14/22 12:33 Urine Blood Neg (Negative) 02/14/22 12:33 Urine Nitrate Negative (Negative) 02/14/22 12:33 Urine Bilirubin Neg (Negative) 02/14/22 12:33 Urine Urobilinogen Norm mg/dL (Negative) 02/14/22 12:33 Ur Leukocyte Esterase 1+ (Negative) H 02/14/22 12:33 Urine RBC None /hpf (0-2) 02/14/22 12:33 Urine WBC 10-15 /hpf (0-5) H 02/14/22 12:33 Ur Squamous Epith Cells 0-4 /hpf (0-5) H 02/14/22 12:33 Amorphous Sediment Not Reportable 02/14/22 12:33 Urine Bacteria 1+ /hpf (NONE) H 02/14/22 12:33 Rheumatoid Factor 10.0 IU/mL (0-14) 02/14/22 20:59 GLORY Screen Cancelled 02/14/22 20:59 GLORY Titer Cancelled 02/14/22 20:59 GLORY Titer 2 Cancelled 02/14/22 20:59 GLORY Titer 3 Cancelled 02/14/22 20:59 GLORY Pattern Cancelled 02/14/22 20:59 GLORY Pattern 2 Cancelled 02/14/22 20:59 GLORY Pattern 3 Cancelled 02/14/22 20:59 Anti-ds DNA IgG Ab Cancelled 02/14/22 20:59 Mitochon/Sm Musc Ab Titr Cancelled 02/14/22 20:59 Mitochondrial DNA Scrn Cancelled 02/14/22 20:59 Vitals Last Vital Signs Temp 98.1 F 02/15/22 07:31 Pulse 54 L 02/15/22 07:31 Resp 20 H 02/15/22 07:31 BP 129/82 02/15/22 07:31 Pulse Ox 97 02/15/22 07:31 O2 Del Method 02/15/22 07:31 Discharge Plan Discharge Patient Disposition: Home Condition: Stable Prescriptions: Continued amlodipine 10 mg tablet 10 mg PO DAILY 90 Days Qty: 90 1RF Rx Instructions: please run through 340b aspirin 81 mg tablet,delayed release (DR/EC) 81 mg PO DAILY 90 Days Qty: 90 1RF Rx Instructions: please run through 340b atorvastatin 40 mg tablet 40 mg PO DAILY 90 Days Qty: 90 1RF Rx Instructions: please run through 340b Lasix 20 mg tablet 20 mg PO DAILY PRN (Reason: edema) 90 Days Qty: 90 1RF Rx Instructions: please run through 340b isosorbide mononitrate 20 mg tablet 10 mg PO DAILY 90 Days Qty: 90 1RF Protonix 40 mg tablet,delayed release (DR/EC) 40 mg PO DAILY 90 Days Qty: 90 0RF Nitrostat 0.4 mg tablet, sublingual 0.4 mg SUBLINGUAL Q5M PRN (Reason: chest pain) 30 Days Qty: 90 0RF Rx Instructions: please run through 340b Held Coreg 3.125 mg tablet 3.125 mg PO BID 90 Days Qty: 180 1RF Hold Instructions: See pcp before resuming Rx Instructions: please run through 340b chlorthalidone 25 mg tablet 25 mg PO DAILY 90 Days Qty: 90 1RF Hold Instructions: see pcp before resuming Rx Instructions: please run through 340b lisinopril 20 mg tablet 20 mg PO BID 90 Days Qty: 180 1RF Hold Instructions: see pcp before resuming Rx Instructions: please run through 340b No Action alprazolam 0.5 mg tablet 0.5 mg PO BID PRN (Reason: anxiety) 30 Days Qty: 60 0RF Discharge Orders: Discharge Order (Routine); Ordered 02/15/22 Ordered By: Frances Yeung Referrals: Chary Jimenes MD [Physician] - 03/29/22 12:00 pm Andrae Menendez MD [Primary Care Provider] - 02/17/22 1:45 pm ([phone]) Discharge Diet: Cardiac Discharge Activity: Resume usual activity Patient Instructions: Stroke (GEN), Opioid Safety, Stroke Stoplight Activity Restrictions/Additional Instructions: Please check your blood pressure twice a day and keep a log of it and take your primary care doctor. I have held some of her blood pressure medication since her blood pressure has been running low to normal during hospital stay. We may be able to gradually re-add your medications. Please watch for any worsening of symptoms and presented back to the hospital if you experience any more neurological issues. Discharge Attestations Time Spent in Discharge Care*: greater than 30 min Quality Metrics Clinical Quality Measures [ No reported AMI, CVA or VTE this stay] Coding Level of Care Code Acute Chg FW DC note Diagnoses Slurred speech R47.81 Word finding difficulty R47.89 Essential hypertension I10 Dizziness R42 Vitamin D deficiency E55.9 Mixed hyperlipidemia E78.2 Generalized anxiety disorder F41.1
[2022-02-15 10:56] VITALS: BP 134/81; PULSE 56; RESP 20; TEMP 36.6; O2SAT 98
--- NOTE | 2022-02-15 11:45 | PC.OT ---
OT EVALUATION COMPLETED. NO ADL DEFICITS NOTED; UE MX STRENGTH AND ROM IS WFL. NO FURTHER SKILLED OT REQUIRED AT THIS TIME.
--- NOTE | 2022-02-15 12:07 | PC.SLP ---
Discharge orders were written prior her speech therapy evaluation was completed.
[2022-02-16 12:52] LABS: COMPLEMENT COMPONENT C3C 156 mg/dL (83-193); COMPLEMENT COMPONENT C4C 30 mg/dL (15-57)
[2022-02-16 15:03] LABS: COMPLEMENT, TOTAL (CH50) >60 U/mL (31-60)
[2022-02-16 17:07] LABS: THYROID PEROXIDASE ANTIBODIES 3 IU/mL (<9)
[2022-02-17 15:17] LABS: CENTROMERE B ANTIBODY <1.0 NEG AI (<1.0 NEG); JO-1 ANTIBODY <1.0 NEG AI (<1.0 NEG); RNP ANTIBODY <1.0 NEG AI (<1.0 NEG); SCL-70 ANTIBODY <1.0 NEG AI (<1.0 NEG); SJOGREN'S ANTIBODY (SS-A) <1.0 NEG AI (<1.0 NEG); SM ANTIBODY <1.0 NEG AI (<1.0 NEG); SS-B <1.0 NEG AI (<1.0 NEG)
[2022-02-17 16:22] LABS: ANA PATTERN Nuclear, Speckled; ANA SCREEN, IFA POSITIVE (NEGATIVE); ANA TITER 1:40 titer
[2022-02-18 18:27] LABS: ANCA Screen NEGATIVE (NEGATIVE)
[2022-02-18 18:38] LABS: DNA AB (DS) CRITHIDIA,IFA NEGATIVE (NEGATIVE)
[2022-02-19 23:57] LABS: Myeloperoxidase Antibody <1.0 AI (<1.0)
[2022-02-22 21:57] LABS: ANCA Screen Negative (Negative)
== END 2022-02-15 16:00 | disposition home or self-care (01) ==
LOC: ER 12:02 → MEDSURG 15:13
PROVIDERS: Admitting Provider Internal Medicine; Emergency Provider Emergency Medicine; PCP Family Medicine; Visit Provider Internal Medicine
DX: R47.81 Slurred speech (principal); R47.89 Other speech disturbances; I10 Essential (primary) hypertension; R42 Dizziness and giddiness; E55.9 Vitamin D deficiency, unspecified; E78.2 Mixed hyperlipidemia; F41.1 Generalized anxiety disorder; Z91.14 Patient's other noncompliance with medication regimen; F17.210 Nicotine dependence, cigarettes, uncomplicated
CPT/HCPCS: 36415; 36416; 70450; 70551; 71045; 80053; 80061; 81001; 82962; 83036; 83735; 84100; 84443; 84484; 85025; 85610; 85730; 86021; 86036; 86038; 86140; 86160; 86162; 86235; 86255; 86376; 86431; 93005; 93880; 96372; 96374; 97161; 99285; C8929; C9113; G0378; J1644

== ENCOUNTER → 2023-06-21 14:13 | Outpatient (BNVA) | payer BC, SELFPAY | PROVIDERS: PCP Family Medicine; Visit Provider Nurse Practitioner Family | DX: I10 Essential (primary) hypertension (principal); E78.2 Mixed hyperlipidemia; Z79.899 Other long term (current) drug therapy | CPT/HCPCS: 80053; 80061; 82570; 83036; 84156; 84443; 85025 ==